=== PATIENT | male | born 1970 | race Caucasian/White ===

== ENCOUNTER 2019-04-10 22:29 | Inpatient (IN) | payer OTHER ==
[~2019-04-10 22:29] MED LIST: ROCURONIUM BROMIDE INJ 50 MG/5 ML VIAL IV ONE
[2019-04-10] MEDS ORDERED: NALOXONE HCL INJ 2 MG/2 ML DISP.SYRIN ONE (22:33)
[2019-04-10] MEDS ORDERED: NALOXONE HCL INJ 2 MG/2 ML DISP.SYRIN IV ONE (22:38)
[2019-04-10] MEDS ORDERED: NORMAL SALINE 1000 ML 1,000 ML IV ONE (22:38)
[2019-04-10] MEDS ORDERED: AMMONIA INHALANTS 10 AMPUL/BOX IH ONE (22:39)
[2019-04-10 22:45] LABS: ABSOLUTE BASOPHILS # (AUTO) 0.1 10^3/uL (0.0-0.2); ABSOLUTE EOSINOPHILS # (AUTO) 0.6 10^3/uL (0.0-0.6); ABSOLUTE LYMPHOCYTES (AUTO) 3.1 10^3/uL (0.5-4.7); ABSOLUTE MONOCYTES (AUTO) 0.8 10^3/uL (0.1-1.4); ABSOLUTE NEUT (AUTO) 6.7 10^3/uL (1.7-8.2); BASOPHILS % (AUTO) 1.3 % (0-2); HEMATOCRIT 42.4 % (37.9-51.0); HEMOGLOBIN 14.4 g/dL (13.5-17.0); LYMPHOCYTES % (AUTO) 27.2 % (13-45); MEAN CORPUSCULAR HGB CONC 33.9 g/dL (32.0-36.0); MEAN CORPUSCULAR VOLUME 92 fl (80-97); MONOCYTES % (AUTO) 7.3 % (3-13); PLATELET COUNT 316 10^3/uL (150-450); RED BLOOD COUNT 4.63 10^6/uL (4.35-5.55); RED CELL DISTRIBUTION WIDTH 12.7 % (11.5-14.0); SEGMENTED NEUTROPHILS % (AUTO) 59.2 % (42-78); TOTAL CELLS COUNTED % (AUTO) 100 %; WHITE BLOOD COUNT 11.3 10^3/uL (4.0-10.5)
[2019-04-10 23:07] LABS: ALANINE AMINOTRANSFERASE 34 U/L (21-72); ALKALINE PHOSPHATASE 66 U/L (38-126); ANION GAP 15 (5-19); ASPARTATE AMINO TRANSFERASE 36 U/L (17-59); BILIRUBIN,DIRECT 0.3 mg/dL (0.0-0.4); BILIRUBIN,TOTAL 0.6 mg/dL (0.2-1.3); BLOOD UREA NITROGEN 21 mg/dL (7-20); CALCIUM 10.1 mg/dL (8.4-10.2); CARBON DIOXIDE 24 mmol/L (22-30); CHLORIDE 103 mmol/L (98-107); GLUCOSE 123 mg/dL (75-110); POTASSIUM 4.2 mmol/L (3.6-5.0); SODIUM 141.9 mmol/L (137-145); TOTAL PROTEIN 8.2 g/dL (6.3-8.2)
[2019-04-10 23:10] LABS: ACETAMINOPHEN < 10 ug/mL (10-30); ALCOHOL < 10 mg/dL (NONE DETECTED); SALICYLATE < 1.0 mg/dL (2.0-20.0)
[2019-04-10] MEDS ORDERED: PROPOFOL 1,000 MG/100 ML INFUS..BTL IV PRN (23:12)
[2019-04-10] MEDS: PROPOFOL 1,000 MG/100 ML INFUS..BTL IV PRN (23:13)
[2019-04-10] MEDS ORDERED: PROPOFOL 1,000 MG/100 ML INFUS..BTL IV ONE (23:14)
--- NOTE | 2019-04-10 23:17 | ER Document Report ---
ED General - General Chief Complaint: Unresponsive Stated Complaint: UNRESPONSIVE Time Seen by Provider: 04/10/19 22:38 TRAVEL OUTSIDE OF THE [place] IN LAST 30 DAYS: No - HPI Notes: Patient is a 48-year-old male that presents to the emergency department for chief complaint of unresponsive. EMS was called by a bystander. Patient was reportedly in this bystanders home and was found unresponsive. There was syringes and heroin found on scene. EMS is not sure if patient had consumed any other narcotics or alcohol. EMS administered 2 mg intranasal and 2 mg IV Narcan. they state when they found the patient he was unresponsive with agonal breathing and did have some improvement of respirations after receiving Narcan. HPI is limited given patient's unresponsive state. Past Medical History: Hypertension, depression Past Surgical History: Unknown Social History: Reported heroin use Family History: Reviewed and noncontributory for presenting illness Allergies: Reviewed, see documented allergy list. REVIEW OF SYSTEMS: Unable to obtain because of acuity of condition and unresponsive state PHYSICAL EXAMINATION: Vital signs reviewed, nursing noted reviewed. GENERAL: Unresponsive, warm, groaning HEAD: Atraumatic, normocephalic. EYES: Pinpoint pupils, PERRLA, sclera anicteric, conjunctiva are normal. ENT: nares patent, oropharynx clear without exudates. Moist mucous membranes. NECK: supple without lymphadenopathy LUNGS: Breath sounds diminished to auscultation bilaterally and equal. slow shallow respirations HEART: Tachycardic rate and regular rhythm without murmurs ABDOMEN: Soft, No rebound, guarding, or rigidity. No masses appreciated. EXTREMITIES: No long bone deformity, no pitting or edema. NEUROLOGICAL: GCS 7. Groaning, moves all extremities to painful stimuli but does not localize to pain, eyes remain closed SKIN: Warm, Dry, normal turgor, ecchymosis to medial left arm - Related Data Allergies/Adverse Reactions: No Known Allergies Allergy (Unverified 04/11/19 00:19) Past Medical History - Social History Smoking Status: Unknown if Ever Smoked Family History: Reviewed & Not Pertinent Physical Exam - Vital signs Vitals: Pulse Ox 96 04/10/19 22:30 Course - Re-evaluation Re-evalutation: 04/10/19 23:22 Vitals reviewed. Nursing notes reviewed. Patient presented by EMS with a GCS of 7. He had received 2 mg intranasal Narcan and 2 mg IV Narcan by EMS prior to arrival. Administered another 2 mg IV Narcan with no change in mentation, a second dose of 2 mg IV Narcan was then administered again with no change in mentation. Patient has now received a total of 8 mg of IV Narcan and is still unresponsive. He is not currently protecting his airway. Patient was intubated for airway protection. He is moving all extremities to painful stimuli with no localization of pain prior to intubation. 04/11/19 00:18 Patient sister is now at bedside. She states that patient has a history of heroin abuse in the past. She also states that he told her over the weekend t hat he was having suicidal thoughts and for $200 he could "end it all". She states he has required inpatient admission for substance abuse as well as suicidal thoughts in the past. She is concerned that he had a months worth of Valium prescribed to him on Wednesday. She is not sure if he took this medication and believes the police that were on the scene may have confiscated the pill bottle. She also reports he has a history of hypertension but is not sure what his blood pressure medication is and he takes Paxil for depression. Patient has been hypertensive since presentation. His blood pressure temporarily improved after intubation and propofol but has continued to increase. He was given a dose of IV hydralazine with minimal improvement. Patient will be placed on Cardene infusion for further blood pressure control. CT brain shows no intracranial hemorrhage. Chest x-ray shows no acute process and appropriately placed ET tube. urine tox is pending currently. Laboratory 04/10/19 04/10/19 22:40 22:40 WBC 11.3 H RBC 4.63 Hgb 14.4 Hct 42.4 MCV 92 MCH 31.0 MCHC 33.9 RDW 12.7 Plt Count 316 Seg Neutrophils % 59.2 Lymphocytes % 27.2 Monocytes % 7.3 Eosinophils % 5.0 Basophils % 1.3 Absolute Neutrophils 6.7 Absolute Lymphocytes 3.1 Absolute Monocytes 0.8 Absolute Eosinophils 0.6 Absolute Basophils 0.1 Sodium 141.9 Potassium 4.2 Chloride 103 Carbon Dioxide 24 Anion Gap 15 BUN 21 H Creatinine 0.85 Est GFR ( Amer) > 60 Est GFR (Non-Af Amer) > 60 Glucose 123 H Calcium 10.1 Total Bilirubin 0.6 Direct Bilirubin 0.3 Neonat Total Bilirubin Not Reportable Neonat Direct Bilirubin Not Reportable Neonat Indirect Bili Not Reportable AST 36 ALT 34 Alkaline Phosphatase 66 Total Protein 8.2 Albumin 5.0 Salicylates < 1.0 L Acetaminophen < 10 L Serum Alcohol < [address] 04/10/19 22:39 IMPRESSION: No acute intracranial findings. Chest X-Ray 04/10/19 23:15 IMPRESSION: No acute cardiopulmonary findings. 04/11/19 00:44 Patient reevaluated. He is agitated on the vent and coughing. He is not opening his eyes or following commands. He is moving all extremities spontaneously. Patient is still encephalopathic and sedation will be increased for patient comfort while on the vent. 04/11/19 01:59 Cardene was ordered for blood pressure management since his blood pressure did not initially improve after hydralazine however after patient was started on Versed drip and propofol was increased to the point where he was comfortably sedate his blood pressure improved on its own. Urine tox is positive for benzodiazepines and methamphetamine. Patient will be admitted to the ICU for further medical management. Care discussed with Dr. Vora who accepted admission. - Vital Signs Vital signs: Temp Pulse Resp BP Pulse Ox 16 184/123 H 98 04/10/19 23:10 04/10/19 23:10 04/10/19 23:10 - Laboratory Result Diagrams: 04/10/19 22:40 04/10/19 22:40 Laboratory results interpreted by me: 04/10/19 04/10/19 04/11/19 22:40 22:40 00:07 WBC 11.3 H BUN 21 H Glucose 123 H Urine Protein 30 H Urine Ketones TRACE H Urine Ascorbic Acid 40 H Salicylates < 1.0 L Acetaminophen < 10 L - EKG Interpretation by Me Additional EKG results interpreted by me: 04/10/19 23:23 Interpreted by myself [id number]: Normal sinus rhythm, rate 77, normal axis, no ectopy, no STEMI Procedures - Intubation Orotracheal Time of Intubation: 23:21 Airway evaluation: Normal anatomy Mallampati Classification: Class 1 Medications: Etomidate, Other - Rocuronium Intubation method: Orotracheal Equipment used: Glidescope ETT size: 7.5 ETT secured at: Gums ETT secured at (cm): 23 Breath Sounds after Intubation: Equal End tidal CO2 confirmed: Yes Post Intubation Xray: Yes Intubation Complications: No complications Critical Care Note - Critical Care Note Total time excluding time spent on procedures (mins): 50 Comments: Critical care time 50 exclusive from separate billable procedures for a patient requiring complex medical decision making, and high potential for clinical deterioration. Time spent obtaining history from patient or surrogate, discussions with consultants, development of treatment plan with patient or surrogate, evaluation of patient's response to treatment, examination of patient, ordering and performing treatments and interventions, ordering and review of laboratory studies, re-evaluation of patient's condition, ordering and review of radiographic studies and review of old charts Discharge - Discharge Clinical Impression: Unresponsive state, Hypertensive emergency Drug overdose Qualifiers: Encounter type: initial encounter Injury intent: undetermined intent Qualified Code(s): T50.904A - Poisoning by unspecified drugs, medicaments and biological substances, undetermined, initial encounter Condition: Fair Disposition: ADMITTED INPATIENT Admitting Provider: Diony (Hospitalist) Unit Admitted: ICU
--- NOTE | 2019-04-10 23:44 | RADIOLOGY REPORT (SQ) ---
EXAM DESCRIPTION: XR CHEST 1 VIEW COMPLETED DATE/TME: 04/10/2019 23:15 CLINICAL HISTORY: 48 years Male, ETT placement COMPARISON: None. NUMBER OF VIEWS/TECHNIQUE: 1/AP FINDINGS: Adequate lung volume, clear parenchyma, normal cardiac silhouette, and intact bony thorax. Adequate appearing endotracheal tube. Adequate appearing enteric tube. IMPRESSION: No acute cardiopulmonary findings.
[2019-04-11] MEDS ORDERED: HYDRALAZINE HCL INJ/PF 20 MG/1 ML SDV IV ONE (00:02)
[2019-04-11] MEDS ORDERED: NICARDIPINE HCL RTU, ISO-OS 20 MG/200 ML RTUINJ IV PRN (00:11)
--- NOTE | 2019-04-11 00:11 | RADIOLOGY REPORT (SQ) ---
CLINICAL HISTORY: mental status change COMPARISON: None. TECHNIQUE: CT HEAD WITHOUT IV CONTRAST on 04/10/2019 10:39 PM CDT This exam was performed according to our departmental dose-optimization program, which includes automated exposure control, adjustment of the mA and/or kV according to patient size and/or use of iterative reconstruction technique. FINDINGS: There is no acute hemorrhage, mass effect or midline shift. Hightower-white differentiation is preserved. There is no hydrocephalus. There is no significant volume loss for age. The calvarium is intact. Orbits and globes are unremarkable. There is partial opacification of the ethmoid air cells. There is a tiny mucous retention cyst in the left maxillary sinus. There is minimal right maxillary sinus thickening. Mastoid air cells are clear. IMPRESSION: No acute intracranial findings.
[2019-04-11] MEDS ORDERED: MIDAZOLAM HCL 50 MG/100 ML RTUINJ ONE ×2 (00:43→12:41)
[2019-04-11 00:49] LABS: APPEARANCE,URINE SLIGHTLY-CLOUDY; BILIRUBIN,URINE NEGATIVE (NEGATIVE); COLOR,URINE YELLOW; GLUCOSE, URINE NEGATIVE (NEGATIVE); KETONES,URINE TRACE mg/dL (NEGATIVE); LEUKOCYTE ESTERASE,URINE NEGATIVE (NEGATIVE); NITRITE,URINE NEGATIVE (NEGATIVE); PROTEIN,URINE 30 mg/dL (NEGATIVE); URINE SPECIFIC GRAVITY 1.021; UROBILINOGEN,URINE NEGATIVE mg/dL (<2.0)
[2019-04-11] MEDS: MIDAZOLAM HCL 50 MG/100 ML RTUINJ IV PRN ×8 (00:56→21:02)
[2019-04-11 01:05] LABS: URINE BARBITURATES SCREEN NEGATIVE; URINE COCAINE SCREEN NEGATIVE; URINE MARIJUANA (THC) SCREEN NEGATIVE; URINE METHADONE SCREEN NEGATIVE; URINE PHENCYCLIDINE SCREEN NEGATIVE
[2019-04-11 01:45] LABS: URINE BENZODIAZEPINES SCREEN UNCONFIRMED POSITIVE
[2019-04-11] MEDS: PROPOFOL 1,000 MG/100 ML INFUS..BTL IV PRN ×8 (02:15→22:23)
[2019-04-11] MEDS ORDERED: PROPOFOL INJ 200 MG/20 ML VIAL IV ONE (02:15)
[2019-04-11] MEDS ORDERED: ETOMIDATE INJ/PF 20 MG/10 ML SDV IV ONE ×2 (02:15→09:27)
[2019-04-11] MEDS ORDERED: ROCURONIUM BROMIDE INJ 50 MG/5 ML VIAL IV ONE (02:15)
[2019-04-11] MEDS ORDERED: DEXTROSE 50%-WATER 25 GM/50 ML DISP.SYRIN IV PRN ×2 (05:56)
[2019-04-11] MEDS ORDERED: DEXTROSE 40% GEL 15 GM TUBE PO PRN ×2 (05:56)
[2019-04-11] MEDS ORDERED: ONDANSETRON HCL INJ/PF 4 MG/2 ML SDV IV PRN (05:56)
[2019-04-11] MEDS ORDERED: GLUCAGON,HUMAN RECOMB 1 MG INJ SUBCUT PRN (05:56)
[2019-04-11] MEDS: RINGERS SOLUTION,LACTATED 1,000 ML IV PRN ×5 (06:22→22:36)
[2019-04-11] MEDS: HEPARIN SOD (PORCINE) 5,000 UNIT/ML 1 ML SYRINGE SUBCUT SCH ×3 (06:22→21:03)
--- NOTE | 2019-04-11 06:23 | PDOC H&P ---
History of Present Illness Admission Date/PCP: 04/11/19 02:07 BLAINE HOWARD MD Patient complains of: Found down unresponsive History of Present Illness: BRENDA GARCIA is a 48 year old male who presented to the emergency room via EMS having been found down at an unrelated bystanders home. At the time he was found by EMS he was unresponsive and there observation at the scene was that h eroin and syringes were present. A family member told the emergency room physician that the patient had recently commented "that for $200 he could get all of the heroin he needed to kill himself". Patient was given intranasal and intravenous Narcan with some improvement of his respiratory status however his unresponsiveness persisted. Patient was transported to the emergency room where he was found to be unresponsive and required intubation and ventilation. He was noted to have a positive urine drug screen for benzodiazepines and amphetamines. Patient was subsequently admitted to the intensive care unit for further evaluation and treatment. Past Medical History Past Medical History: Past medical history, past surgical history, social history, current medication/allergy status and family history cannot be obtained due to the patient's obtunded status and current endotracheal tube placement with mechanical ventilation. No medical records or other history sources are available. Past Surgical History Past Surgical History: Past medical history, past surgical history, social history, current medicati on/allergy status and family history cannot be obtained due to the patient's obtunded status and current endotracheal tube placement with mechanical ventilation. No medical records or other history sources are available. Social History Smoking Status: Unknown if Ever Smoked Past Social History Note: Past medical history, past surgical history, social history, current medication/allergy status and family history cannot be obtained due to the patient's obtunded status and current endotracheal tube placement with mechanical ventilation. No medical records or other history sources are available. - Advance Directive Resuscitation Status: Full Code Surrogate healthcare decision maker:: UA Family History Family History: Past medical history, past surgical history, social history, current medication/allergy status and family history cannot be obtained due to the patient's obtunded status and current endotracheal tube placement with mechanical ventilation. No medical records or other history sources are available. Parental Family History Reviewed: No Children Family History Reviewed: No Sibling(s) Family History Reviewed.: No Medication/Allergy Allergies/Adverse Reactions: No Known Allergies Allergy (Unverified 06/04/19 00:19) Review of Systems ROS unobtainable: Due to endotracheal tube, Due to mental status Physical Exam Vital Signs: Temp Pulse Resp BP Pulse Ox 14 138/99 H 98 04/11/19 02:20 04/11/19 02:20 04/11/19 02:20 Intake & Output 04/09/19 04/10/19 04/11/19 23:59 23:59 23:59 Intake Total 1 1083 Balance 1 1083 Weight 82.3 kg General appearance: PRESENT: no acute distress, other - Endotracheally intubated with mechanical ventilation at the time of my evaluation Head exam: PRESENT: atraumatic, normocephalic Eye exam: ABSENT: conjunctival injection, scleral icterus Ear exam: PRESENT: normal external ear exam. ABSENT: bleeding, drainage Mouth exam: PRESENT: dry mucosa, neck supple, tongue midline Neck exam: ABSENT: JVD, thyromegaly, tracheal deviation Respiratory exam: PRESENT: clear to auscultation annie, symmetrical, other - Endotracheally intubated with mechanical ventilation Cardiovascular exam: PRESENT: RRR. ABSENT: clicks, gallop, rubs Pulses: PRESENT: normal radial pulses, normal dorsalis pedis pul Vascular exam: PRESENT: normal capillary refill. ABSENT: pallor GI/Abdominal exam: PRESENT: normal bowel sounds, soft Rectal exam: PRESENT: deferred Extremities exam: ABSENT: joint swelling, pedal edema Musculoskeletal exam: ABSENT: deformity, dislocation Neurological exam: PRESENT: altered - Sedated for mechanical ventilation pre cluding further meaningful evaluation Psychiatric exam: PRESENT: other - Sedated for ventilation precluding a meaningful evaluation Skin exam: PRESENT: dry, intact, warm. ABSENT: jaundice, rash, urticaria Results Laboratory Results: 04/10/19 22:40 04/10/19 22:40 04/10/19 04/10/19 04/11/19 22:40 22:40 00:07 WBC 11.3 H RBC 4.63 Hgb 14.4 Hct 42.4 MCV 92 MCH 31.0 MCHC 33.9 RDW 12.7 Plt Count 316 Seg Neutrophils % 59.2 Lymphocytes % 27.2 Monocytes % 7.3 Eosinophils % 5.0 Basophils % 1.3 Absolute Neutrophils 6.7 Absolute Lymphocytes 3.1 Absolute Monocytes 0.8 Absolute Eosinophils 0.6 Absolute Basophils 0.1 Sodium 141.9 Potassium 4.2 Chloride 103 Carbon Dioxide 24 Anion Gap 15 BUN 21 H Creatinine 0.85 Est GFR ( Amer) > 60 Est GFR (Non-Af Amer) > 60 Glucose 123 H Calcium 10.1 Total Bilirubin 0.6 AST 36 ALT 34 Alkaline Phosphatase 66 Total Protein 8.2 Albumin 5.0 Urine Color YELLOW Urine Appearance SLIGHTLY-CLOUDY Urine pH 5.0 Ur Specific [place] 1.021 Urine Protein 30 H Urine Glucose (UA) NEGATIVE Urine Ketones TRACE H Urine Blood NEGATIVE Urine Nitrite NEGATIVE Ur Leukocyte Esterase NEGATIVE Urine WBC (Auto) 2 Urine RBC (Auto) 2 Impressions: Head CT 04/10/19 22:39 IMPRESSION: No acute intracranial findings. Chest X-Ray 04/10/19 23:15 IMPRESSION: No acute cardiopulmonary findings. Assessment and Plan - Diagnosis (1) Unresponsive state Is this a current diagnosis for this admission?: Yes Plan: Patient will be admitted to the ICU and will receive mechanical ventilation through endotracheal intubation until he becomes responsive enough to be extubated. (2) Drug overdose Qualifiers: Encounter type: initial encounter Injury intent: undetermined intent Qu alified Code(s): T50.904A - Poisoning by unspecified drugs, medicaments and biological substances, undetermined, initial encounter Is this a current diagnosis for this admission?: Yes Plan: Patient be admitted to the ICU and will be treated with IV fluid and other supportive cares. His airway and respiration will be maintained utilizing mechanical ventilation and endotracheal intubation until such time as he is able to be extubated. (3) Hypertensive emergency Is this a current diagnosis for this admission?: Yes Plan: Patient's blood pressure be monitored closely throughout his hospital stay. His hypertension will be treated with intravenous medication utilizing hydralazine 20 mg IV every 4 hours as needed systolic blood pressure greater than 160 or d iastolic blood pressure greater than 100. This will be continued until patient is able to take oral medications or his hypertension resolves. (4) Suicidal ideation Is this a current diagnosis for this admission?: Yes Plan: Patient evidently spoke to a family member indicating that he could buy enough heroin to kill himself or $200. Is uncertain but this was his intent or exactly what his statement meant but he will need a psychiatric evaluation prior to his discharge. - Time Time Spent with patient: Less than 15 minutes - Inpatient Certification Based on my medical assessment, after consideration of the patient's comorbidities, presenting symptoms, or acuity I expect that the services needed warrant INPATIENT care.: Yes I certify that my determination is in accordance with my understanding of Medicare's requirements for reasonable and necessary INPATIENT services [42 CFR 412.3e].: Yes Medical Necessity: Need Close Monitoring Due to Risk of Patient Decompensation, Need For Continuous Telemetry Monitoring, Risk of Complication if Not Cared For in Hospital
[2019-04-11 07:07] LABS: ARTERIAL BLOOD BASE EXCESS 1.1 mmol/L; ARTERIAL BLOOD H2CO3 1.44 mmol/L (1.05-1.35); ARTERIAL BLOOD HCO3 27.1 mmol/L (20-24); ARTERIAL BLOOD O2 SATURATION 99.3 % (94-98); ARTERIAL BLOOD PH 7.37 (7.35-7.45); ARTERIAL BLOOD TOTAL CO2 28.5 mmol/L (23-27)
--- NOTE | 2019-04-11 07:07 | PSYCHOLOGICAL NOTE ---
Psych Note - Psych Note Date seen by psych provider: 04/11/19 Psych Note: Reason for Consult: Overdose BRENDA GARCIA is a 48 year old male who presented to the emergency room via EMS having been found down at an unrelated bystanders home. Patient is currently intubated. Please contact the Behavioral Health Team when extubated and patient is able to engage in evaluation.
[2019-04-11 07:08] LABS: ARTERIAL BLOOD FIO2 40%
[2019-04-11 07:14] LABS: CREATINE KINASE MB 2.47 ng/mL (<4.55)
[2019-04-11 07:16] LABS: TROPONIN I < 0.012 ng/mL
[2019-04-11] MEDS: PANTOPRAZOLE SODIUM 40 MG VIAL IV SCH ×2 (09:59→21:02)
[2019-04-11 12:35] LABS: CREATINE KINASE MB 1.86 ng/mL (<4.55)
[2019-04-11 12:40] LABS: TROPONIN I < 0.012 ng/mL
[2019-04-11] MEDS ORDERED: PROPOFOL 1,000 MG/100 ML INFUS..BTL IV ONE (12:40)
--- NOTE | 2019-04-11 13:56 | EKG REPORT ---
SEVERITY:- NORMAL ECG - SINUS RHYTHM : Confirmed by: Jan Collins MD 11-Apr-2019 13:55:48
[2019-04-11 18:42] LABS: CREATINE KINASE MB 1.37 ng/mL (<4.55)
[2019-04-11 18:46] LABS: TROPONIN I < 0.012 ng/mL
[2019-04-11] MEDS: FENTANYL CITRATE INJ/PF 100 MCG/2 ML AMPUL IV PRN (21:03)
[2019-04-12] MEDS: MIDAZOLAM HCL 50 MG/100 ML RTUINJ IV PRN ×7 (00:13→19:35)
[2019-04-12] MEDS: PROPOFOL 1,000 MG/100 ML INFUS..BTL IV PRN ×7 (01:43→23:16)
[2019-04-12] MEDS: FENTANYL CITRATE INJ/PF 100 MCG/2 ML AMPUL IV PRN ×4 (01:44→19:35)
[2019-04-12] MEDS: RINGERS SOLUTION,LACTATED 1,000 ML IV PRN ×2 (02:52→07:06)
[2019-04-12 03:50] LABS: ARTERIAL BLOOD BASE EXCESS -1.1 mmol/L; ARTERIAL BLOOD H2CO3 1.34 mmol/L (1.05-1.35); ARTERIAL BLOOD HCO3 24.5 mmol/L (20-24); ARTERIAL BLOOD O2 SATURATION 98.2 % (94-98); ARTERIAL BLOOD PCO2 44.5 mmHg (35-45); ARTERIAL BLOOD PH 7.36 (7.35-7.45); ARTERIAL BLOOD PO2 119.7 mmHg (80-100); ARTERIAL BLOOD TOTAL CO2 25.8 mmol/L (23-27)
[2019-04-12 03:58] LABS: ARTERIAL BLOOD FIO2 35%
[2019-04-12 04:43] LABS: ABSOLUTE BASOPHILS # (AUTO) 0.1 10^3/uL (0.0-0.2); ABSOLUTE EOSINOPHILS # (AUTO) 0.6 10^3/uL (0.0-0.6); ABSOLUTE LYMPHOCYTES (AUTO) 2.2 10^3/uL (0.5-4.7); ABSOLUTE MONOCYTES (AUTO) 0.8 10^3/uL (0.1-1.4); ABSOLUTE NEUT (AUTO) 7.1 10^3/uL (1.7-8.2); BASOPHILS % (AUTO) 0.9 % (0-2); EOSINOPHILS % (AUTO) 5.1 % (0-6); HEMATOCRIT 34.1 % (37.9-51.0); LYMPHOCYTES % (AUTO) 20.2 % (13-45); MEAN CORPUSCULAR HEMOGLOBIN 31.2 pg (27.0-33.4); MEAN CORPUSCULAR HGB CONC 33.7 g/dL (32.0-36.0); MEAN CORPUSCULAR VOLUME 93 fl (80-97); MONOCYTES % (AUTO) 7.7 % (3-13); PLATELET COUNT 244 10^3/uL (150-450); RED BLOOD COUNT 3.68 10^6/uL (4.35-5.55); RED CELL DISTRIBUTION WIDTH 12.8 % (11.5-14.0); SEGMENTED NEUTROPHILS % (AUTO) 66.1 % (42-78); TOTAL CELLS COUNTED % (AUTO) 100 %; WHITE BLOOD COUNT 10.8 10^3/uL (4.0-10.5)
[2019-04-12 04:46] LABS: ALANINE AMINOTRANSFERASE 34 U/L (21-72); ALKALINE PHOSPHATASE 55 U/L (38-126); ANION GAP 6 (5-19); ASPARTATE AMINO TRANSFERASE 21 U/L (17-59); BILIRUBIN,DIRECT 0.2 mg/dL (0.0-0.4); BILIRUBIN,TOTAL 0.2 mg/dL (0.2-1.3); BLOOD UREA NITROGEN 14 mg/dL (7-20); CALCIUM 8.7 mg/dL (8.4-10.2); CARBON DIOXIDE 28 mmol/L (22-30); CHLORIDE 108 mmol/L (98-107); GLUCOSE 81 mg/dL (75-110); HEMOGLOBIN 11.5 g/dL (13.5-17.0); SODIUM 141.5 mmol/L (137-145); TOTAL PROTEIN 5.2 g/dL (6.3-8.2)
[2019-04-12] MEDS: HEPARIN SOD (PORCINE) 5,000 UNIT/ML 1 ML SYRINGE SUBCUT SCH ×3 (04:59→21:08)
[2019-04-12 05:00] LABS: FREE T3 4.82 pg/mL (2.77-5.27); FREE T4 (FREE THYROXINE) 0.88 ng/dL (0.78-2.19)
[2019-04-12 05:14] LABS: THYROID STIMULATING HORMONE 0.86 uIU/mL (0.47-4.68)
--- NOTE | 2019-04-12 08:24 | RADIOLOGY REPORT (SQ) ---
EXAM DESCRIPTION: CHEST SINGLE VIEW COMPLETED DATE/TIME: 04/12/2019 7:09 am REASON FOR STUDY: resp failure COMPARISON: 04/10/2019 EXAM PARAMETERS: NUMBER OF VIEWS: One view. TECHNIQUE: Single frontal radiographic view of the chest acquired. RADIATION DOSE: NA LIMITATIONS: None. FINDINGS: LUNGS AND PLEURA: No opacities, masses or pneumothorax. No pleural effusion. MEDIASTINUM AND HILAR STRUCTURES: No masses. Contour normal. HEART AND VASCULAR STRUCTURES: Heart normal in size. Normal vasculature. BONES: No acute findings. HARDWARE: Endotracheal tube tip overlies midthoracic trachea, stable. Enteric tube tip overlies padmini patricia body and advanced from prior. OTHER: No other significant finding. IMPRESSION: No new cardiopulmonary complication. Advancement of the enteric tube with tip overlying gastric body. TECHNICAL DOCUMENTATION: JOB ID: [id number] [employer]- All Rights Reserved Reading location - IP/workstation name: HE
[2019-04-12] MEDS: PANTOPRAZOLE SODIUM 40 MG VIAL IV SCH ×2 (10:45→21:08)
[2019-04-12] MEDS: NORMAL SALINE 1000 ML 1,000 ML IV PRN ×2 (10:46→18:06)
--- NOTE | 2019-04-12 17:04 | PDOC PROGRESS REPORT ---
Subjective Progress Note for:: 04/12/19 Subjective:: This is a 48 year old male who presented to the emergency room via EMS having been found unresponsive with heroin and syringes were present on the scene. He was subsequently intubated. He was noted to have a positive urine drug screen for benzodiazepines and amphetamines. No acute event overnight. He remains intubated and sedated. Per RN, patient had significantly thick yellowish secretions coming from the ET. Patient also became very tachycardic when attempted to be weaned off sedation. Reason For Visit: ACUTE MULTIPLE DRUG OVERDOSE Physical Exam Vital Signs: Temp Pulse Resp BP Pulse Ox 99.5 F 96 12 113/82 97 04/12/19 14:00 04/12/19 14:00 04/12/19 14:00 04/12/19 14:00 04/12/19 14:00 Intake & Output 04/11/19 04/12/19 04/13/19 06:59 06:59 06:59 Intake Total 1177 7507 1258 Output Total 1350 800 Balance 1177 6157 458 Weight 181 lb 7.047 oz 188 lb 7.924 oz General appearance: PRESENT: other - Intubated, sedated Eye exam: PRESENT: conjunctiva pink, EOMI, PERRLA. ABSENT: scleral icterus Ear exam: PRESENT: normal external ear exam Neck exam: ABSENT: carotid bruit, JVD, lymphadenopathy, thyromegaly Respiratory exam: PRESENT: rhonchi. ABSENT: rales, wheezes Cardiovascular exam: PRESENT: RRR. ABSENT: diastolic murmur, rubs, systolic murmur Pulses: PRESENT: normal dorsalis pedis pul GI/Abdominal exam: PRESENT: normal bowel sounds, soft. ABSENT: distended, guarding, mass, organolmegaly, rebound, tenderness Rectal exam: PRESENT: deferred Extremities exam: PRESENT: full ROM. ABSENT: calf tenderness, clubbing, pedal edema Neurological exam: PRESENT: other - Debated, sedated Results Laboratory Results: 04/12/19 04:06 04/12/19 04:06 04/12/19 04/12/19 04/12/19 03:42 04:06 04:06 WBC 10.8 H RBC 3.68 L Hgb 11.5 L D Hct 34.1 L MCV 93 MCH 31.2 MCHC 33.7 RDW 12.8 Plt Count 244 Seg Neutrophils % 66.1 Lymphocytes % 20.2 Monocytes % 7.7 Eosinophils % 5.1 Basophils % 0.9 Absolute Neutrophils 7.1 Absolute Lymphocytes 2.2 Absolute Monocytes 0.8 Absolute Eosinophils 0.6 Absolute Basophils 0.1 Carbonic Acid 1.34 HCO3/H2CO3 Ratio 18:1 ABG pH 7.36 ABG pCO2 44.5 ABG pO2 119.7 H ABG HCO3 24.5 H ABG O2 Saturation 98.2 H ABG Base Excess -1.1 FiO2 35% Sodium Potassium Chloride Carbon Dioxide Anion Gap BUN Creatinine Est GFR ( Amer) Est GFR (Non-Af Amer) Glucose Calcium Magnesium Total Bilirubin AST ALT Alkaline Phosphatase Total Protein Albumin TSH 0.86 Free T4 0.88 Free T3 pg/mL 4.82 04/12/19 04:06 WBC RBC Hgb Hct MCV MCH MCHC RDW Plt Count Seg Neutrophils % Lymphocytes % Monocytes % Eosinophils % Basophils % Absolute Neutrophils Absolute Lymphocytes Absolute Monocytes Absolute Eosinophils Absolute Basophils Carbonic Acid HCO3/H2CO3 Ratio ABG pH ABG pCO2 ABG pO2 ABG HCO3 ABG O2 Saturation ABG Base Excess FiO2 Sodium 141.5 Potassium 4.0 Chloride 108 H Carbon Dioxide 28 Anion Gap 6 BUN 14 Creatinine 0.85 Est GFR ( Amer) > 60 Est GFR (Non-Af Amer) > 60 Glucose 81 Calcium 8.7 Magnesium 1.9 Total Bilirubin 0.2 AST 21 ALT 34 Alkaline Phosphatase 55 Total Protein 5.2 L Albumin 3.0 L TSH Free T4 Free T3 pg/mL 04/11/19 04/11/19 04/11/19 06:33 06:33 11:56 Creatine Kinase 187 H 146 CK-MB (CK-2) 2.47 Troponin I < 0.012 04/11/19 04/11/19 04/11/19 11:56 17:43 17:43 Creatine Kinase 116 CK-MB (CK-2) 1.86 1.37 Troponin I < 0.012 < 0.012 Impressions: Head CT 04/10/19 22:39 IMPRESSION: No acute intracranial findings. Chest X-Ray 04/12/19 06:00 IMPRESSION: No new cardiopulmonary complication. Advancement of the enteric tube with tip overlying gastric body. Assessment and Plan - Diagnosis (1) Acute respiratory failure with hypoxia Is this a current diagnosis for this admission?: Yes Plan: Currently intubated and sedated. Patient became very tachycardic and slightly tachypneic when weaning off sedation was attempted. (2) Toxic encephalopathy Is this a current diagnosis for this admission?: Yes Plan: Secondary to abuse. UDS was the positive for amphetamines. There was reported heroine and syringes as close to patient when he was found unresponsive. (3) Suicidal ideation Is this a current diagnosis for this admission?: Yes Plan: He will be reevaluated by psych when he gets extubated. Family did say that he had suicidal ideations at home. He may need possible inpatient psych placement. (4) Polysubstance abuse Is this a current diagnosis for this admission?: Yes Plan: As mentioned above. - Time Time Spent with patient: 25-34 minutes
[2019-04-13] MEDS: FENTANYL CITRATE INJ/PF 100 MCG/2 ML AMPUL IV PRN ×4 (00:09→19:42)
[2019-04-13] MEDS: MIDAZOLAM HCL 50 MG/100 ML RTUINJ IV PRN ×6 (01:14→23:27)
[2019-04-13] MEDS: NORMAL SALINE 1000 ML 1,000 ML IV PRN (01:28)
[2019-04-13] MEDS: PROPOFOL 1,000 MG/100 ML INFUS..BTL IV PRN ×7 (02:05→22:40)
[2019-04-13 03:24] LABS: ARTERIAL BLOOD BASE EXCESS -1.2 mmol/L; ARTERIAL BLOOD H2CO3 1.24 mmol/L (1.05-1.35); ARTERIAL BLOOD HCO3 23.8 mmol/L (20-24); ARTERIAL BLOOD O2 SATURATION 93.2 % (94-98); ARTERIAL BLOOD PCO2 41.1 mmHg (35-45); ARTERIAL BLOOD PH 7.38 (7.35-7.45); ARTERIAL BLOOD PO2 67.5 mmHg (80-100); ARTERIAL BLOOD TOTAL CO2 25.1 mmol/L (23-27)
[2019-04-13 03:28] LABS: ARTERIAL BLOOD FIO2 21%
[2019-04-13 03:54] LABS: ABSOLUTE BASOPHILS # (AUTO) 0.1 10^3/uL (0.0-0.2); ABSOLUTE EOSINOPHILS # (AUTO) 0.3 10^3/uL (0.0-0.6); ABSOLUTE LYMPHOCYTES (AUTO) 2.7 10^3/uL (0.5-4.7); ABSOLUTE MONOCYTES (AUTO) 0.9 10^3/uL (0.1-1.4); ABSOLUTE NEUT (AUTO) 6.9 10^3/uL (1.7-8.2); BASOPHILS % (AUTO) 0.9 % (0-2); EOSINOPHILS % (AUTO) 2.9 % (0-6); HEMATOCRIT 36.1 % (37.9-51.0); HEMOGLOBIN 12.1 g/dL (13.5-17.0); LYMPHOCYTES % (AUTO) 24.3 % (13-45); MEAN CORPUSCULAR HGB CONC 33.5 g/dL (32.0-36.0); MEAN CORPUSCULAR VOLUME 93 fl (80-97); MONOCYTES % (AUTO) 8.6 % (3-13); PLATELET COUNT 240 10^3/uL (150-450); RED BLOOD COUNT 3.91 10^6/uL (4.35-5.55); RED CELL DISTRIBUTION WIDTH 12.6 % (11.5-14.0); SEGMENTED NEUTROPHILS % (AUTO) 63.3 % (42-78); TOTAL CELLS COUNTED % (AUTO) 100 %; WHITE BLOOD COUNT 10.9 10^3/uL (4.0-10.5)
[2019-04-13 04:14] LABS: ALANINE AMINOTRANSFERASE 28 U/L (21-72); ALBUMIN 3.1 g/dL (3.5-5.0); ALKALINE PHOSPHATASE 61 U/L (38-126); ANION GAP 9 (5-19); ASPARTATE AMINO TRANSFERASE 19 U/L (17-59); BILIRUBIN,DIRECT 0.2 mg/dL (0.0-0.4); BILIRUBIN,TOTAL 0.3 mg/dL (0.2-1.3); BLOOD UREA NITROGEN 7 mg/dL (7-20); CALCIUM 8.5 mg/dL (8.4-10.2); CARBON DIOXIDE 27 mmol/L (22-30); CHLORIDE 106 mmol/L (98-107); GLUCOSE 79 mg/dL (75-110); POTASSIUM 3.7 mmol/L (3.6-5.0); TOTAL PROTEIN 5.5 g/dL (6.3-8.2)
[2019-04-13] MEDS: HEPARIN SOD (PORCINE) 5,000 UNIT/ML 1 ML SYRINGE SUBCUT SCH ×3 (05:16→21:13)
--- NOTE | 2019-04-13 07:46 | RADIOLOGY REPORT (SQ) ---
EXAM DESCRIPTION: XR CHEST 1 VIEW COMPLETED DATE/TME: 04/13/2019 06:00 CLINICAL HISTORY: 48 years Male, aspiration resp failure COMPARISON: One day prior. NUMBER OF VIEWS/TECHNIQUE: 1/AP FINDINGS: Small patchy opacity bilateral lower lung gorman. Pulmonary vascular congestion. Adequate appearing endotracheal tube. Adequate appearing enteric tube partially obscured. Normal cardiac silhouette size. No pneumothorax. Stable bony thorax. IMPRESSION: No significant change.
[2019-04-13] MEDS: PANTOPRAZOLE SODIUM 40 MG VIAL IV SCH ×2 (09:42→21:13)
[2019-04-13] MEDS: FUROSEMIDE INJ/PF 40 MG/4 ML SDV IV SCH ×3 (09:42→22:06)
[2019-04-13] MEDS ORDERED: CEFTRIAXONE 1 GM/D5W RTU 1 GM/50 ML RTUPB IV SCH (12:00)
--- NOTE | 2019-04-13 13:35 | RADIOLOGY REPORT (SQ) ---
EXAM DESCRIPTION: CHEST SINGLE VIEW COMPLETED DATE/TIME: 04/13/2019 1:24 pm REASON FOR STUDY: absent breath sounds on right COMPARISON: 04/13/2019. EXAM PARAMETERS: NUMBER OF VIEWS: One view. TECHNIQUE: Single frontal radiographic view of the chest acquired. RADIATION DOSE: NA LIMITATIONS: None. FINDINGS: LUNGS AND PLEURA: Stable elevation of the right hemidiaphragm. Faint basilar densities un changed. No large pleural effusion. No pneumothorax. MEDIASTINUM AND HILAR STRUCTURES: No masses. Contour normal. HEART AND VASCULAR STRUCTURES: Heart normal in size. Normal vasculature. BONES: No acute findings. HARDWARE: Stable endotracheal tube and nasogastric tube. OTHER: No other significant finding. IMPRESSION: NO CHANGE IN APPEARANCE OF THE CHEST. TECHNICAL DOCUMENTATION: JOB ID: [id number] [employer]- All Rights Reserved Reading location - IP/workstation name: HE
[2019-04-13] MEDS: CEFTRIAXONE SODIUM 1,000 MG in DEXTROSE 5%-WATER 50 ML IV SCH (14:05)
[2019-04-13] MEDS ORDERED: FENTANYL CITRATE INJ/PF 100 MCG/2 ML AMPUL IV ONE (15:00)
[2019-04-13] MEDS ORDERED: VANCOMYCIN HCL 0 MG in DEXTROSE 5%-WATER 250 ML IV NR (15:00)
--- NOTE | 2019-04-13 15:12 | PDOC PROGRESS REPORT ---
Subjective Progress Note for:: 04/13/19 Subjective:: This is a 48 year old male who presented to the emergency room via EMS having been found unresponsive with heroin and syringes were present on the scene. He was subsequently intubated. He was noted to have a positive urine drug screen for benzodiazepines and amphetamines. 04/12: Patient is intubated and sedated. Per RN, patient had significantly thick yellowish secretions coming from the ET. Patient also became very tachycardic when attempted to be weaned off sedation. 04/13: No acute event overnight. He remains intubated and sedated. He did develop fever last night and this morning. Minimal secretions on the ET today. However patient did have transient desaturation. Currently saturating at 92-93% on 40% FiO2. Reason For Visit: ACUTE MULTIPLE DRUG OVERDOSE Physical Exam Vital Signs: Temp Pulse Resp BP Pulse Ox 101.1 F H 99 16 143/93 H 93 04/13/19 12:00 04/13/19 12:00 04/13/19 12:00 04/13/19 12:00 04/13/19 14:35 Intake & Output 04/12/19 04/13/19 04/14/19 06:59 06:59 06:59 Intake Total 7507 3766 224 Output Total 1350 2825 1325 Balance 6157 941 -1101 Weight 188 lb 7.924 oz 185 lb 6.54 oz Results Laboratory Results: 04/13/19 03:41 04/13/19 03:41 04/13/19 04/13/19 04/13/19 03:15 03:41 03:41 WBC 10.9 H RBC 3.91 L Hgb 12.1 L Hct 36.1 L MCV 93 MCH 31.0 MCHC 33.5 RDW 12.6 Plt Count 240 Seg Neutrophils % 63.3 Lymphocytes % 24.3 Monocytes % 8.6 Eosinophils % 2.9 Basophils % 0.9 Absolute Neutrophils 6.9 Absolute Lymphocytes 2.7 Absolute Monocytes 0.9 Absolute Eosinophils 0.3 Absolute Basophils 0.1 Carbonic Acid 1.24 HCO3/H2CO3 Ratio 19:1 ABG pH 7.38 ABG pCO2 41.1 ABG pO2 67.5 L ABG HCO3 23.8 ABG O2 Saturation 93.2 L ABG Base Excess -1.2 FiO2 21% Sodium 142.0 Potassium 3.7 Chloride 106 Carbon Dioxide 27 Anion Gap 9 BUN 7 Creatinine 0.82 Est GFR ( Amer) > 60 Est GFR (Non-Af Amer) > 60 Glucose 79 Calcium 8.5 Magnesium 2.0 Total Bilirubin 0.3 AST 19 ALT 28 Alkaline Phosphatase 61 Total Protein 5.5 L Albumin 3.1 L 04/11/19 04/11/19 04/11/19 06:33 06:33 11:56 Creatine Kinase 187 H 146 CK-MB (CK-2) 2.47 Troponin I < 0.012 04/11/19 04/11/19 04/11/19 11:56 17:43 17:43 Creatine Kinase 116 CK-MB (CK-2) 1.86 1.37 Troponin I < 0.012 < 0.012 Impressions: Head CT 04/10/19 22:39 IMPRESSION: No acute intracranial findings. Chest X-Ray 04/13/19 06:00 IMPRESSION: No significant change. Assessment and Plan - Diagnosis (1) Acute respiratory failure with hypoxia Is this a current diagnosis for this admission?: Yes (2) Toxic encephalopathy Is this a current diagnosis for this admission?: Yes Plan: Secondary to substance abuse. UDS was the positive for amphetamines. There was reported heroine and syringes close to patient when he was found unresponsive. (3) Suicidal ideation Is this a current diagnosis for this admission?: Yes Plan: He will be reevaluated by psych when he gets extubated. Family did say that he had suicidal ideations at home. He may need possible inpatient psych placement. (4) Polysubstance abuse Is this a current diagnosis for this admission?: Yes Plan: As mentioned above. (5) Pneumonia Is this a current diagnosis for this admission?: Yes Plan: Sputum culture grew haemophilus influenzae and is still growing gram-positive cocci. Continue IV antibiotics. - Time Time Spent with patient: 25-34 minutes
[2019-04-13] MEDS: VANCOMYCIN HCL 1,000 MG in DEXTROSE 5%-WATER 250 ML IV SCH ×2 (15:44→21:10)
[2019-04-13] MEDS: ACETYLCYSTEINE 10% NEB 400 MG/4 ML VIAL NEB SCH (15:57)
[2019-04-13] MEDS: IPRATROPIUM/ALBUTEROL 0.5-2.5 MG/3 ML AMPUL NEB SCH (15:57)
[2019-04-13] MEDS: POTASSIUM CHLORIDE 20 MEQ/50 ML RTU IV SCH ×2 (22:06→23:28)
[2019-04-14] MEDS: IPRATROPIUM/ALBUTEROL 0.5-2.5 MG/3 ML AMPUL NEB SCH ×4 (01:05→23:40)
[2019-04-14] MEDS: ACETYLCYSTEINE 10% NEB 400 MG/4 ML VIAL NEB SCH ×4 (01:06→23:40)
[2019-04-14] MEDS: PROPOFOL 1,000 MG/100 ML INFUS..BTL IV PRN ×7 (02:00→21:25)
[2019-04-14] MEDS: FENTANYL CITRATE INJ/PF 100 MCG/2 ML AMPUL IV PRN ×3 (02:00→11:25)
[2019-04-14 03:35] LABS: ARTERIAL BLOOD BASE EXCESS -0.1 mmol/L; ARTERIAL BLOOD H2CO3 1.32 mmol/L (1.05-1.35); ARTERIAL BLOOD HCO3 25.2 mmol/L (20-24); ARTERIAL BLOOD O2 SATURATION 95.8 % (94-98); ARTERIAL BLOOD PCO2 43.7 mmHg (35-45); ARTERIAL BLOOD PH 7.38 (7.35-7.45); ARTERIAL BLOOD PO2 81.8 mmHg (80-100); ARTERIAL BLOOD TOTAL CO2 26.6 mmol/L (23-27)
[2019-04-14 03:37] LABS: ARTERIAL BLOOD FIO2 45%
[2019-04-14] MEDS: MIDAZOLAM HCL 50 MG/100 ML RTUINJ IV PRN ×5 (04:00→22:15)
[2019-04-14 04:14] LABS: ABSOLUTE BASOPHILS # (AUTO) 0.1 10^3/uL (0.0-0.2); ABSOLUTE EOSINOPHILS # (AUTO) 0.3 10^3/uL (0.0-0.6); ABSOLUTE LYMPHOCYTES (AUTO) 1.7 10^3/uL (0.5-4.7); ABSOLUTE MONOCYTES (AUTO) 1.1 10^3/uL (0.1-1.4); ABSOLUTE NEUT (AUTO) 7.1 10^3/uL (1.7-8.2); BASOPHILS % (AUTO) 0.8 % (0-2); EOSINOPHILS % (AUTO) 3.1 % (0-6); HEMATOCRIT 35.6 % (37.9-51.0); LYMPHOCYTES % (AUTO) 16.5 % (13-45); MEAN CORPUSCULAR HEMOGLOBIN 30.9 pg (27.0-33.4); MEAN CORPUSCULAR HGB CONC 33.8 g/dL (32.0-36.0); MEAN CORPUSCULAR VOLUME 92 fl (80-97); MONOCYTES % (AUTO) 10.4 % (3-13); PLATELET COUNT 255 10^3/uL (150-450); RED BLOOD COUNT 3.88 10^6/uL (4.35-5.55); RED CELL DISTRIBUTION WIDTH 12.7 % (11.5-14.0); SEGMENTED NEUTROPHILS % (AUTO) 69.2 % (42-78); TOTAL CELLS COUNTED % (AUTO) 100 %; WHITE BLOOD COUNT 10.3 10^3/uL (4.0-10.5)
[2019-04-14 04:33] LABS: ALANINE AMINOTRANSFERASE 28 U/L (21-72); ALBUMIN 3.2 g/dL (3.5-5.0); ALKALINE PHOSPHATASE 72 U/L (38-126); ANION GAP 11 (5-19); ASPARTATE AMINO TRANSFERASE 14 U/L (17-59); BILIRUBIN,DIRECT 0.3 mg/dL (0.0-0.4); BILIRUBIN,TOTAL 0.3 mg/dL (0.2-1.3); BLOOD UREA NITROGEN 6 mg/dL (7-20); CALCIUM 8.5 mg/dL (8.4-10.2); CARBON DIOXIDE 29 mmol/L (22-30); CHLORIDE 101 mmol/L (98-107); GLUCOSE 100 mg/dL (75-110); POTASSIUM 3.7 mmol/L (3.6-5.0); SODIUM 141.3 mmol/L (137-145); TOTAL PROTEIN 5.9 g/dL (6.3-8.2)
[2019-04-14] MEDS: HEPARIN SOD (PORCINE) 5,000 UNIT/ML 1 ML SYRINGE SUBCUT SCH ×3 (05:04→21:32)
[2019-04-14] MEDS: VANCOMYCIN HCL 1,000 MG in DEXTROSE 5%-WATER 250 ML IV SCH ×2 (05:04→14:44)
--- NOTE | 2019-04-14 07:32 | RADIOLOGY REPORT (SQ) ---
EXAM DESCRIPTION: XR CHEST 1 VIEW COMPLETED DATE/TME: 04/14/2019 06:00 CLINICAL HISTORY: 48 years Male, RESPIRATORY FAILURE/ET TUBE PLACEMENT COMPARISON: One day prior. NUMBER OF VIEWS/TECHNIQUE: 1/AP FINDINGS: Bilateral lower thoracic opacity/effusion. Adequate appearing endotracheal tube. Adequate appearing enteric tube. Normal cardiac silhouette size. No pneumothorax. Stable bony thorax. IMPRESSION: No significant change.
[2019-04-14] MEDS: FUROSEMIDE INJ/PF 40 MG/4 ML SDV IV SCH ×2 (09:01→21:34)
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
[2019-04-14 14:06] LABS: VANCOMYCIN,TROUGH 9.7 ug/mL (5.0-20.0)
[2019-04-14] MEDS: CEFTRIAXONE SODIUM 1,000 MG in DEXTROSE 5%-WATER 50 ML IV SCH (14:44)
--- NOTE | 2019-04-14 15:11 | RADIOLOGY REPORT (SQ) ---
EXAM DESCRIPTION: CT CHEST WITHOUT COMPLETED DATE/TIME: 04/14/2019 2:27 pm REASON FOR STUDY: worsening chest xray COMPARISON: Chest x-rays 04/12/2019, 04/13/2019, and 04/14/2019. TECHNIQUE: CT scan performed of the chest without intravenous contrast. Images reviewed with lung, soft tissue and bone windows. Reconstructed coronal and sagittal MPR images reviewed. All images st ored on PACS. All CT scanners at this facility use dose modulation, iterative reconstruction, and/or weight based d osing when appropriate to reduce radiation dose to as low as reasonably achievable (ALARA). [facility]: Dose Right [facility]: CareDose [facility]: Dose Right [facility]: Teradose 4D [facility]: Smart [employer] RADIATION DOSE: CT Rad equipment meets quality standard of care and radiation dose reduction techniq ues were employed. CTDIvol: 14.7 mGy. DLP: 520 mGy-cm. mGy. LIMITATIONS: No technical limitations. FINDINGS: LUNGS AND PLEURA: Small right pleural effusion with smaller left pleural effusion. Airspa ce disease in both lower lobes. HILAR AND MEDIASTINAL STRUCTURES: No identified masses or abnormal nodes. No obvious aneurysm. HEART AND VASCULAR STRUCTURES: No aneurysm. No pericardial effusion. UPPER ABDOMEN: No significant findings. Limited exam. THYROID AND OTHER SOFT TISSUES: No masses. No adenopathy. BONES: No significant finding. HARDWARE: Endotracheal tube. NG tube. OTHER: No other significant findings. IMPRESSION: Pleural effusions. Airspace disease in each lower lobe, atelectasis versus pneumonia. TECHNICAL DOCUMENTATION: JOB ID: [id number] Quality ID # [id number]: Final reports with documentation of one or more dose reduction techniques (e.g., Au tomated exposure control, adjustment of the mA and/or kV according to patient size, use of iterative reconstruction technique) 2010 [employer]- All Rights Reserved Reading location - IP/workstation name: [email or web address]
--- NOTE | 2019-04-14 17:33 | PDOC PROGRESS REPORT ---
Subjective Progress Note for:: 04/14/19 Subjective:: This is a 48 year old male who presented to the emergency room via EMS having been found unresponsive with heroin and syringes were present on the scene. He was subsequently intubated. He was noted to have a positive urine drug screen for benzodiazepines and amphetamines. 04/12: Patient is intubated and sedated. Per RN, patient had significantly thick yellowish secretions coming from the ET. Patient also became very tachycardic when attempted to be weaned off sedation. 04/13: He remains intubated and sedated. He did develop fever last night and this morning. Minimal secretions on the ET today. However patient did have transient desaturation. Currently saturating at 92-93% on 40% FiO2. 04/14: No acute event overnight. Patient remains intubated and sedated. Chest CT shows bilateral lower lobe pneumonia with bilateral effusions. Reason For Visit: ACUTE MULTIPLE DRUG OVERDOSE Physical Exam Vital Signs: Temp Pulse Resp BP Pulse Ox 100.6 F H 111 H 22 H 116/77 93 04/14/19 13:02 04/14/19 15:49 04/14/19 15:49 04/14/19 14:02 04/14/19 15:49 Intake & Output 04/13/19 04/14/19 04/15/19 06:59 06:59 06:59 Intake Total 3766 1903 472 Output Total 2825 3950 1510 Balance 224 -4061 -0825 Weight 185 lb 6.54 oz 194 lb 0.108 oz General appearance: PRESENT: other - Intubated, sedated Eye exam: PRESENT: conjunctiva pink, EOMI, PERRLA. ABSENT: scleral icterus Ear exam: PRESENT: normal external ear exam Mouth exam: PRESENT: moist, tongue midline Neck exam: ABSENT: carotid bruit, JVD, lymphadenopathy, thyromegaly Respiratory exam: PRESENT: decreased breath sounds, rales. ABSENT: rhonchi, wheezes Cardiovascular exam: PRESENT: RRR. ABSENT: diastolic murmur, rubs, systolic murmur Pulses: PRESENT: normal dorsalis pedis pul GI/Abdominal exam: PRESENT: normal bowel sounds, soft. ABSENT: distended, g uarding, mass, organolmegaly, rebound, tenderness Rectal exam: PRESENT: deferred Neurological exam: PRESENT: other - Intubated, sedated Results Laboratory Results: 04/14/19 04:05 04/14/19 13:36 04/13/19 04/14/19 04/14/19 17:42 03:24 04:05 WBC 10.3 RBC 3.88 L Hgb 12.0 L Hct 35.6 L MCV 92 MCH 30.9 MCHC 33.8 RDW 12.7 Plt Count 255 Seg Neutrophils % 69.2 Lymphocytes % 16.5 Monocytes % 10.4 Eosinophils % 3.1 Basophils % 0.8 Absolute Neutrophils 7.1 Absolute Lymphocytes 1.7 Absolute Monocytes 1.1 Absolute Eosinophils 0.3 Absolute Basophils 0.1 Carbonic Acid 1.32 HCO3/H2CO3 Ratio 19:1 ABG pH 7.38 ABG pCO2 43.7 ABG pO2 81.8 ABG HCO3 25.2 H ABG O2 Saturation 95.8 ABG Base Excess -0.1 FiO2 45% Sodium Potassium 3.1 L Chloride Carbon Dioxide Anion Gap BUN Creatinine Est GFR ( Amer) Est GFR (Non-Af Amer) Glucose Calcium Magnesium Total Bilirubin AST ALT Alkaline Phosphatase Total Protein Albumin 04/14/19 04/14/19 04:05 13:36 WBC RBC Hgb Hct MCV MCH MCHC RDW Plt Count Seg Neutrophils % Lymphocytes % Monocytes % Eosinophils % Basophils % Absolute Neutrophils Absolute Lymphocytes Absolute Monocytes Absolute Eosinophils Absolute Basophils Carbonic Acid HCO3/H2CO3 Ratio ABG pH ABG pCO2 ABG pO2 ABG HCO3 ABG O2 Saturation ABG Base Excess FiO2 Sodium 141.3 Potassium 3.7 Chloride 101 Carbon Dioxide 29 Anion Gap 11 BUN 6 L Creatinine 0.80 0.71 Est GFR ( Amer) > 60 > 60 Est GFR (Non-Af Amer) > 60 > 60 Glucose 100 Calcium 8.5 Magnesium 1.8 Total Bilirubin 0.3 AST 14 L ALT 28 Alkaline Phosphatase 72 Total Protein 5.9 L Albumin 3.2 L 04/12/19 10:55 Catheterized Urine Urine Culture - Final NO GROWTH 2 DAYS 04/12/19 10:55 Sputum Gram Stain - Final 04/12/19 10:55 Sputum Sputum Culture - Final Staphylococcus Aureus Haemophilus Influenzae Greatly Reduced Normal Brionna 04/11/19 04/11/19 04/11/19 06:33 06:33 11:56 Creatine Kinase 187 H 146 CK-MB (CK-2) 2.47 Troponin I < 0.012 0604/11/19 04/11/19 11:56 17:43 17:43 Creatine Kinase 116 CK-MB (CK-2) 1.86 1.37 Troponin I < 0.012 < 0.012 Impressions: Head CT 04/10/19 22:39 IMPRESSION: No acute intracranial findings. Chest CT 04/14/19 00:00 IMPRESSION: Pleural effusions. Airspace disease in each lower lobe, atelectasis versus pneumonia. Chest X-Ray 04/14/19 06:00 IMPRESSION: No significant change. Assessment and Plan - Diagnosis (1) Acute respiratory failure with hypoxia Is this a current diagnosis for this admission?: Yes Plan: 04/13: Currently intubated and sedated. Patient became very tachycardic and slightly tachypneic when weaning off sedation was attempted. 04/14: Patient remains intubated and sedated. Chest CT shows bilateral lower lobe pneumonia with bilateral effusions. (2) Toxic encephalopathy Is this a current diagnosis for this admission?: Yes Plan: Secondary to substance abuse. UDS was the positive for amphetamines. There was reported heroine and syringes close to patient when he was found unresponsive. (3) Suicidal ideation Is this a current diagnosis for this admission?: Yes Plan: He will be reevaluated by psych when he gets extubated. Family did say that he had suicidal ideations at home. He may need possible inpatient psych placement. (4) Polysubstance abuse Is this a current diagnosis for this admission?: Yes Plan: As mentioned above. (5) Pneumonia Is this a current diagnosis for this admission?: Yes Plan: Sputum culture grew haemophilus influenzae and GPC. Continue IV antibiotics. - Time Time Spent with patient: 25-34 minutes
[2019-04-14] MEDS: PIPERACILLIN SODIUM/TAZOBACTAM 3.375 GM in NORMAL SALINE 100 ML IV SCH (18:44)
[2019-04-14] MEDS: ACETAMINOPHEN 650 MG SUPP.RECT PR PRN (18:44)
[2019-04-14] MEDS: VANCOMYCIN HCL 1,500 MG in DEXTROSE 5%-WATER 250 ML IV SCH (21:34)
[2019-04-15] MEDS: PIPERACILLIN SODIUM/TAZOBACTAM 3.375 GM in NORMAL SALINE 100 ML IV SCH ×2 (00:15→05:09)
[2019-04-15] MEDS: FENTANYL CITRATE INJ/PF 100 MCG/2 ML AMPUL IV PRN ×4 (01:36→23:50)
[2019-04-15] MEDS: MIDAZOLAM HCL 50 MG/100 ML RTUINJ IV PRN ×5 (02:41→23:53)
[2019-04-15] MEDS: PROPOFOL 1,000 MG/100 ML INFUS..BTL IV PRN ×4 (03:16→22:22)
[2019-04-15 03:46] LABS: ABSOLUTE BASOPHILS # (AUTO) 0.1 10^3/uL (0.0-0.2); ABSOLUTE EOSINOPHILS # (AUTO) 0.6 10^3/uL (0.0-0.6); ABSOLUTE LYMPHOCYTES (AUTO) 1.4 10^3/uL (0.5-4.7); ABSOLUTE MONOCYTES (AUTO) 0.8 10^3/uL (0.1-1.4); ABSOLUTE NEUT (AUTO) 7.2 10^3/uL (1.7-8.2); BASOPHILS % (AUTO) 1.2 % (0-2); EOSINOPHILS % (AUTO) 5.6 % (0-6); HEMATOCRIT 35.4 % (37.9-51.0); LYMPHOCYTES % (AUTO) 13.6 % (13-45); MEAN CORPUSCULAR HEMOGLOBIN 30.7 pg (27.0-33.4); MEAN CORPUSCULAR HGB CONC 33.7 g/dL (32.0-36.0); MEAN CORPUSCULAR VOLUME 91 fl (80-97); MONOCYTES % (AUTO) 7.7 % (3-13); PLATELET COUNT 317 10^3/uL (150-450); RED CELL DISTRIBUTION WIDTH 12.9 % (11.5-14.0); SEGMENTED NEUTROPHILS % (AUTO) 71.9 % (42-78); TOTAL CELLS COUNTED % (AUTO) 100 %
[2019-04-15 04:00] LABS: ANION GAP 10 (5-19); BLOOD UREA NITROGEN 8 mg/dL (7-20); CARBON DIOXIDE 32 mmol/L (22-30); CHLORIDE 98 mmol/L (98-107); GLUCOSE 121 mg/dL (75-110); PHOSPHORUS 4.4 mg/dL (2.5-4.5); POTASSIUM 3.6 mmol/L (3.6-5.0); SODIUM 139.9 mmol/L (137-145)
[2019-04-15 04:59] LABS: ARTERIAL BLOOD BASE EXCESS 7.6 mmol/L; ARTERIAL BLOOD H2CO3 1.54 mmol/L (1.05-1.35); ARTERIAL BLOOD HCO3 33.2 mmol/L (20-24); ARTERIAL BLOOD O2 SATURATION 97.9 % (94-98); ARTERIAL BLOOD PH 7.43 (7.35-7.45); ARTERIAL BLOOD PO2 106.4 mmHg (80-100); ARTERIAL BLOOD TOTAL CO2 34.8 mmol/L (23-27)
[2019-04-15 05:01] LABS: ARTERIAL BLOOD FIO2 45%
[2019-04-15] MEDS: HEPARIN SOD (PORCINE) 5,000 UNIT/ML 1 ML SYRINGE SUBCUT SCH ×3 (05:09→22:21)
[2019-04-15] MEDS: VANCOMYCIN HCL 1,500 MG in DEXTROSE 5%-WATER 250 ML IV SCH (05:47)
--- NOTE | 2019-04-15 07:13 | RADIOLOGY REPORT (SQ) ---
EXAM DESCRIPTION: XR CHEST 1 VIEW COMPLETED DATE/TME: 04/15/2019 06:00 CLINICAL HISTORY: 48 years Male, resp failure COMPARISON: One day prior. NUMBER OF VIEWS/TECHNIQUE: 1/AP FINDINGS: Moderate hazy opacity-effusion of bilateral lower lung gorman. Moderate bandlike opacity of the left lower lung field.Adequate appearing endotracheal tube. Adequate appearing enteric tube partially obscured. Normal cardiac silhouette size. No pneumothorax. Stable bony thorax. IMPRESSION: No significant change.
[2019-04-15] MEDS: IPRATROPIUM/ALBUTEROL 0.5-2.5 MG/3 ML AMPUL NEB SCH ×2 (08:47→17:04)
[2019-04-15] MEDS: ACETYLCYSTEINE 10% NEB 400 MG/4 ML VIAL NEB SCH ×2 (08:47→17:04)
[2019-04-15] MEDS: HYDRALAZINE HCL INJ/PF 20 MG/1 ML SDV IV PRN (12:52)
--- NOTE | 2019-04-15 13:08 | PDOC PROGRESS REPORT ---
Subjective Progress Note for:: 04/15/19 Subjective:: This is a 48 year old male who presented to the emergency room via EMS having been found unresponsive with heroin and syringes were present on the scene. He was subsequently intubated. He was noted to have a positive urine drug screen for benzodiazepines and amphetamines. 04/12: Patient is intubated and sedated. Per RN, patient had significantly thick yellowish secretions coming from the ET. Patient also became very tachycardic when attempted to be weaned off sedation. 04/13: He remains intubated and sedated. He did develop fever last night and this morning. Minimal secretions on the ET today. However patient did have transient desaturation. Currently saturating at 92-93% on 40% FiO2. 04/14: Patient remains intubated and sedated. Chest CT shows bilateral lower lobe pneumonia with bilateral effusions. 04/15: No acute event overnight. He remains sedated and intubated. Currently saturating well on 45% FiO2. Will do a weaning trial today. Reason For Visit: ACUTE MULTIPLE DRUG OVERDOSE Physical Exam Vital Signs: Temp Pulse Resp BP Pulse Ox 99.7 F 103 H 15 126/88 H 96 04/15/19 06:42 04/15/19 08:49 04/15/19 08:49 04/15/19 06:42 04/15/19 08:49 Intake & Output 04/14/19 04/15/19 04/16/19 06:59 06:59 06:59 Intake Total 1903 1809 6 Output Total 3950 3785 Balance -2046 6 Weight 194 lb 0.108 oz 192 lb 14.472 oz General appearance: PRESENT: other - Intubated, sedated Head exam: PRESENT: atraumatic, normocephalic Eye exam: PRESENT: conjunctiva pink, EOMI, PERRLA. ABSENT: scleral icterus Ear exam: PRESENT: normal external ear exam Mouth exam: PRESENT: moist, tongue midline Neck exam: ABSENT: carotid bruit, JVD, lymphadenopathy, thyromegaly Respiratory exam: PRESENT: decreased breath sounds, rhonchi. ABSENT: rales, wheezes Pulses: PRESENT: normal dorsalis pedis pul GI/Abdominal exam: PRESENT: normal bowel sounds, soft. ABSENT: distended, guarding, mass, organolmegaly, rebound, tenderness Rectal exam: PRESENT: deferred Extremities exam: PRESENT: full ROM. ABSENT: calf tenderness, clubbing, pedal edema Neurological exam: PRESENT: other - Intubated sedated Results Laboratory Results: 04/15/19 03:14 04/15/19 03:14 04/14/19 04/15/19 04/15/19 13:36 03:14 03:14 WBC 10.0 RBC 3.90 L Hgb 12.0 L Hct 35.4 L MCV 91 MCH 30.7 MCHC 33.7 RDW 12.9 Plt Count 317 Seg Neutrophils % 71.9 Lymphocytes % 13.6 Monocytes % 7.7 Eosinophils % 5.6 Basophils % 1.2 Absolute Neutrophils 7.2 Absolute Lymphocytes 1.4 Absolute Monocytes 0.8 Absolute Eosinophils 0.6 Absolute Basophils 0.1 Carbonic Acid HCO3/H2CO3 Ratio ABG pH ABG pCO2 ABG pO2 ABG HCO3 ABG O2 Saturation ABG Base Excess FiO2 Sodium 139.9 Potassium 3.6 Chloride 98 Carbon Dioxide 32 H Anion Gap 10 BUN 8 Creatinine 0.71 0.74 Est GFR ( Amer) > 60 > 60 Est GFR (Non-Af Amer) > 60 > 60 Glucose 121 H Calcium 9.0 Phosphorus 4.4 Magnesium 2.0 04/15/19 04:45 WBC RBC Hgb Hct MCV MCH MCHC RDW Plt Count Seg Neutrophils % Lymphocytes % Monocytes % Eosinophils % Basophils % Absolute Neutrophils Absolute Lymphocytes Absolute Monocytes Absolute Eosinophils Absolute Basophils Carbonic Acid 1.54 H HCO3/H2CO3 Ratio 21:1 ABG pH 7.43 ABG pCO2 51.0 H ABG pO2 106.4 H ABG HCO3 33.2 H ABG O2 Saturation 97.9 ABG Base Excess 7.6 FiO2 45% Sodium Potassium Chloride Carbon Dioxide Anion Gap BUN Creatinine Est GFR ( Amer) Est GFR (Non-Af Amer) Glucose Calcium Phosphorus Magnesium 04/12/19 10:55 Catheterized Urine Urine Culture - Final NO GROWTH 2 DAYS 04/12/19 10:55 Sputum Gram Stain - Final 04/12/19 10:55 Sputum Sputum Culture - Final Staphylococcus Aureus Haemophilus Influenzae Greatly Reduced Normal Brionna 04/11/19 04/11/19 04/11/19 06:33 06:33 11:56 Creatine Kinase 187 H 146 CK-MB (CK-2) 2.47 Troponin I < 0.012 04/11/19 04/11/19 04/11/19 11:56 17:43 17:43 Creatine Kinase 116 CK-MB (CK-2) 1.86 1.37 Troponin I < 0.012 < 0.012 Impressions: Head CT 04/10/19 22:39 IMPRESSION: No acute intracranial findings. Chest CT 04/14/19 00:00 IMPRESSION: Pleural effusions. Airspace disease in each lower lobe, atelectasis versus pneumonia. Chest X-Ray 04/15/19 06:00 IMPRESSION: No significant change. Assessment and Plan - Diagnosis (1) Acute respiratory failure with hypoxia Is this a current diagnosis for this admission?: Yes Plan: 04/13: Currently intubated and sedated. Patient became very tachycardic and slightly tachypneic when weaning off sedation was attempted. 04/14: Patient remains intubated and sedated. Chest CT shows bilateral lower lobe pneumonia with bilateral effusions. 04/15: He remains sedated and intubated. Currently saturating well on 45% FiO2. Will do a weaning trial today. (2) Toxic encephalopathy Is this a current diagnosis for this admission?: Yes Plan: Secondary to substance abuse. UDS was the positive for amphetamines. There was reported heroine and syringes close to patient when he was found unresponsive. (3) Suicidal ideation Is this a current diagnosis for this admission?: Yes Plan: He will be reevaluated by psych when he gets extubated. Family did say that he had suicidal ideations at home. He may need possible inpatient psych placement. (4) Polysubstance abuse Is this a current diagnosis for this admission?: Yes Plan: As mentioned above. (5) Pneumonia Is this a current diagnosis for this admission?: Yes Plan: Sputum culture grew haemophilus influenzae and MSSA. Discontinue vancomycin and Zosyn. Switch to Rocephin. - Time Time Spent with patient: 25-34 minutes
[2019-04-15 17:48] LABS: AMPHETAMINE CONFIRMATION UR Positive (.); BENZODIAZEPINE CONFIRMATION UR Positive (.)
--- NOTE | 2019-04-15 18:46 | RADIOLOGY REPORT (SQ) ---
EXAM DESCRIPTION: CHEST SINGLE VIEW COMPLETED DATE/TIME: 04/15/2019 6:09 pm REASON FOR STUDY: pneumonia COMPARISON: 04/15/2019 NUMBER OF VIEWS: One view. TECHNIQUE: Single frontal radiographic image of the chest acquired. LIMITATIONS: None. FINDINGS: ENDOTRACHEAL TUBE: Endotracheal tube Tip overlies the upper 3rd of the trachea, approximat abhijit 9.5 cm above the level of the neela, previously 8.1 cm. OTHER SUPPORT DEVICES: Nasogastric catheter tip overlies the body of the stomach. CHANGES IN RADIOGRAPHIC FINDINGS: Slightly increased bibasilar airspace opacities, left greater than right. HARDWARE: None in the chest. OTHER: No other significant finding. IMPRESSION: Endotracheal tube Tip overlies the upper 3rd of the trachea, approximately 9.5 cm above the level of the neela, previously 8.1 cm.. Slightly increased bibasilar airspace opacities, left g reater than right. TECHNICAL DOCUMENTATION: JOB ID: [id number] [place]-72 2010 [employer]- All Rights Reserved Reading location - IP/workstation name: [email or web address]
[2019-04-15] MEDS: ACETAMINOPHEN 650 MG SUPP.RECT PR PRN (20:30)
[2019-04-15] MEDS ORDERED: FUROSEMIDE INJ/PF 40 MG/4 ML SDV IV SCH (22:00)
[2019-04-15] MEDS: FUROSEMIDE INJ/PF 20 MG/2 ML SDV IV SCH (22:21)
[2019-04-16] MEDS: IPRATROPIUM/ALBUTEROL 0.5-2.5 MG/3 ML AMPUL NEB SCH ×3 (00:04→17:03)
[2019-04-16] MEDS: PROPOFOL 1,000 MG/100 ML INFUS..BTL IV PRN ×4 (01:54→21:10)
[2019-04-16] MEDS: METOPROLOL TARTRATE PF/INJ 5 MG/5 ML SDV IV PRN ×3 (01:58→21:04)
[2019-04-16] MEDS: ACETYLCYSTEINE 10% NEB 400 MG/4 ML VIAL NEB SCH ×3 (02:23→17:04)
[2019-04-16] MEDS: HYDRALAZINE HCL INJ/PF 20 MG/1 ML SDV IV PRN ×2 (04:18→10:05)
[2019-04-16] MEDS: FENTANYL CITRATE INJ/PF 100 MCG/2 ML AMPUL IV PRN ×2 (04:40→20:50)
[2019-04-16] MEDS: HEPARIN SOD (PORCINE) 5,000 UNIT/ML 1 ML SYRINGE SUBCUT SCH ×3 (05:07→21:07)
[2019-04-16] MEDS: MIDAZOLAM HCL 50 MG/100 ML RTUINJ IV PRN ×4 (05:09→20:49)
[2019-04-16 05:31] LABS: ARTERIAL BLOOD BASE EXCESS 6.9 mmol/L; ARTERIAL BLOOD H2CO3 1.42 mmol/L (1.05-1.35); ARTERIAL BLOOD HCO3 31.9 mmol/L (20-24); ARTERIAL BLOOD O2 SATURATION 97.8 % (94-98); ARTERIAL BLOOD PCO2 47.2 mmHg (35-45); ARTERIAL BLOOD PH 7.45 (7.35-7.45); ARTERIAL BLOOD PO2 100.6 mmHg (80-100); ARTERIAL BLOOD TOTAL CO2 33.4 mmol/L (23-27)
[2019-04-16 05:32] LABS: ARTERIAL BLOOD FIO2 45%
--- NOTE | 2019-04-16 06:53 | RADIOLOGY REPORT (SQ) ---
EXAM DESCRIPTION: XR CHEST 1 VIEW COMPLETED DATE/TME: 04/16/2019 06:00 CLINICAL HISTORY: 48 years, Male, resp failure COMPARISON: 04/15/2019 NUMBER OF VIEWS: One TECHNIQUE: AP view the chest LIMITATIONS: None. FINDINGS: Again noted are bibasilar airspace opacities. The heart size is stable. There is no pneumothorax or large pleural effusion. The endotracheal tube terminates approximately 1.4 cm above the neela. A nasogastric tube remains in satisfactory position IMPRESSION: Persistent high placement of the endotracheal tube. Grossly stable bibasilar airspace opacities. copyright 2010 [employer]- All Rights Reserved
--- NOTE | 2019-04-16 09:32 | RADIOLOGY REPORT (SQ) ---
EXAM DESCRIPTION: CHEST SINGLE VIEW COMPLETED DATE/TIME: 04/16/2019 9:08 am REASON FOR STUDY: ET Tube Placement COMPARISON: Earlier the same day. NUMBER OF VIEWS: One view. TECHNIQUE: Single frontal radiographic image of the chest acquired. LIMITATIONS: None. FINDINGS: LUNGS AND PLEURA: Small effusions, left greater than right. No pneumothorax. MEDIASTINUM AND HEART: Stable heart size and mediastinal structures. SUPPORT DEVICES: High position of endotracheal tube at the thoracic inlet. This could be advanced 6 to 7 cm. BONY STRUCTURES: No acute findings. HARDWARE: None. OTHER: No other significant finding. IMPRESSION: High position of endotracheal tube. No pneumothorax. Reading location - IP/workstation name: [email or web address]
[2019-04-16] MEDS: FUROSEMIDE INJ/PF 20 MG/2 ML SDV IV SCH ×2 (09:57→21:07)
[2019-04-16] MEDS ORDERED: CEFTRIAXONE SODIUM 1,000 MG in DEXTROSE 5%-WATER 50 ML IV SCH (10:00)
[2019-04-16] MEDS ORDERED: CEFTRIAXONE 1 GM/D5W RTU 1 GM/50 ML RTUPB IV SCH (10:00)
--- NOTE | 2019-04-16 17:42 | RADIOLOGY REPORT (SQ) ---
EXAM DESCRIPTION: CHEST SINGLE VIEW COMPLETED DATE/TIME: 04/16/2019 4:43 pm REASON FOR STUDY: ET tube readjusted COMPARISON: Earlier exam same date NUMBER OF VIEWS: One view. TECHNIQUE: Single frontal radiographic image of the chest acquired. LIMITATIONS: None. FINDINGS: ENDOTRACHEAL TUBE: Endotracheal tube tip is approximately 8.5 cm above the level of the ca john. OTHER SUPPORT DEVICES: NG tube tip overlies the body of the stomach. CHANGES IN RADIOGRAPHIC FINDINGS: None. Stable appearance. HARDWARE: None in the chest. OTHER: No other significant finding. IMPRESSION: Endotracheal tube tip is approximately 8.5 cm above the level of the neela.STABLE APPEA TRES OF THE CHEST. TECHNICAL DOCUMENTATION: JOB ID: [id number] [place]-[id number] 2010 [employer]- All Rights Reserved Reading location - IP/workstation name: [email or web address]
--- NOTE | 2019-04-16 19:04 | RADIOLOGY REPORT (SQ) ---
EXAM DESCRIPTION: CHEST SINGLE VIEW COMPLETED DATE/TIME: 04/16/2019 6:44 pm REASON FOR STUDY: ET Tube Placement COMPARISON: Earlier exam same date NUMBER OF VIEWS: One view. TECHNIQUE: Single frontal radiographic image of the chest acquired. LIMITATIONS: None. FINDINGS: ENDOTRACHEAL TUBE: Endotracheal tube tip overlies the lower trachea approximately 3.3 cm a erlinda the level of the neela. OTHER SUPPORT DEVICES: None. CHANGES IN RADIOGRAPHIC FINDINGS: Increasing right basilar airspace opacities. Similar left basilar markings. HARDWARE: Nasogastric catheter tip overlies the region of the distal body of the stomach. OTHER: No other significant finding. IMPRESSION: Increasing right basilar airspace opacities.Endotracheal tube tip overlies the lower tra ligia approximately 3.3 cm above the level of the neela. TECHNICAL DOCUMENTATION: JOB ID: [id number] [id number] 2010 [employer]- All Rights Reserved Reading location - IP/workstation name: [email or web address]
--- NOTE | 2019-04-16 19:18 | PDOC PROGRESS REPORT ---
Subjective Progress Note for:: 04/16/19 Subjective:: This is a 48 year old male who presented to the emergency room via EMS having been found unresponsive with heroin and syringes were present on the scene. He was subsequently intubated. He was noted to have a positive urine drug screen for benzodiazepines and amphetamines. 04/12: Patient is intubated and sedated. Per RN, patient had significantly thick yellowish secretions coming from the ET. Patient also became very tachycardic when attempted to be weaned off sedation. 04/13: He remains intubated and sedated. He did develop fever last night and this morning. Minimal secretions on the ET today. However patient did have transient desaturation. Currently saturating at 92-93% on 40% FiO2. 04/14: Patient remains intubated and sedated. Chest CT shows bilateral lower lobe pneumonia with bilateral effusions. 04/15: He remains sedated and intubated. Currently saturating well on 45% FiO2. Will do a weaning trial today. 04/16: Patient remains sedated. Patient's sister disclosed today that he might have overdosed on a whole bottle of Vyvanse as her daughter's entire bottle of Vyvanse was found empty and she says that patient has had a prior history of o verdosing on pills. He is saturating at 92 to 92% on 45% FiO2. He continues to have copious, thick yellowish secretions. There is a question if the ET tube was coiled as it remained away above the neela despite adjustment and pushing down by several centimeters based on location on chest x-ray. Attempted to replace tube with a bougie but was unsuccessful. ET tube was taken out and was replaced successfully. Reason For Visit: ACUTE MULTIPLE DRUG OVERDOSE Physical Exam Vital Signs: Temp Pulse Resp BP Pulse Ox 100.6 F H 114 H 17 146/80 H 91 L 04/16/19 16:00 04/16/19 17:04 04/16/19 17:04 04/16/19 16:00 04/16/19 17:04 Intake & Output 04/15/19 04/16/19 04/17/19 06:59 06:59 06:59 Intake Total 1809 881 300 Output Total 8339 1060 1455 Balance -1975 -179 -1155 Weight 192 lb 14.472 oz General appearance: PRESENT: other - Intubated, sedated Head exam: PRESENT: atraumatic, normocephalic Eye exam: PRESENT: conjunctiva pink, EOMI, PERRLA. ABSENT: scleral icterus Ear exam: PRESENT: normal external ear exam Mouth exam: PRESENT: moist, tongue midline Neck exam: ABSENT: carotid bruit, JVD, lymphadenopathy, thyromegaly Respiratory exam: PRESENT: rales, rhonchi. ABSENT: wheezes Cardiovascular exam: PRESENT: RRR. ABSENT: diastolic murmur, rubs, systolic murmur Pulses: PRESENT: normal dorsalis pedis pul GI/Abdominal exam: PRESENT: normal bowel sounds, soft. ABSENT: distended, guarding, mass, organolmegaly, rebound, tenderness Rectal exam: PRESENT: deferred Neurological exam: PRESENT: other - Intubated, sedated Results Laboratory Results: 04/15/19 03:14 04/15/19 03:14 04/16/19 05:25 Carbonic Acid 1.42 H HCO3/H2CO3 Ratio 22:1 ABG pH 7.45 ABG pCO2 47.2 H ABG pO2 100.6 H ABG HCO3 31.9 H ABG O2 Saturation 97.8 ABG Base Excess 6.9 FiO2 45% 04/11/19 04/11/19 04/11/19 06:33 06:33 11:56 Creatine Kinase 187 H 146 CK-MB (CK-2) 2.47 Troponin I < 0.012 04/11/19 04/11/19 04/11/19 11:56 17:43 17:43 Creatine Kinase 116 CK-MB (CK-2) 1.86 1.37 Troponin I < 0.012 < 0.012 Impressions: Head CT 04/10/19 22:39 IMPRESSION: No acute intracranial findings. Chest CT 04/14/19 00:00 IMPRESSION: Pleural effusions. Airspace disease in each lower lobe, atelect asis versus pneumonia. Chest X-Ray 04/16/19 08:57 IMPRESSION: High position of endotracheal tube. No pneumothorax. Assessment and Plan - Diagnosis (1) Acute respiratory failure with hypoxia Is this a current diagnosis for this admission?: Yes Plan: 04/13: Currently intubated and sedated. Patient became very tachycardic and slightly tachypneic when weaning off sedation was attempted. 04/14: Patient remains intubated and sedated. Chest CT shows bilateral lower lobe pneumonia with bilateral effusions. 04/15: He remains sedated and intubated. Currently saturating well on 45% FiO2. Will do a weaning trial today. 04/16: Patient remains sedated. Patient's sister disclosed today that he might have overdosed on a whole bottle of Vyvanse as her daughter's entire bottle of Vyvanse was found empty and she says that patient has had a prior history of overdosing on pills. He is saturating at 92 to 92% on 45% FiO2. He continues to have copious, thick yellowish secretions. There is a question if the ET tube was coiled as it remained away above the neela despite adjustment and pushing down by several centimeters based on location on chest x-ray. Attempted to replace tube with a bougie but was unsuccessful. ET tube was taken out and was replaced successfully. (2) Toxic encephalopathy Is this a current diagnosis for this admission?: Yes Plan: Secondary to substance abuse. UDS was the positive for amphetamines. There was reported heroine and syringes close to patient when he was found unresponsive. 03/16: Possible Vyvanse overdose as mentioned. (3) Suicidal ideation Is this a current diagnosis for this admission?: Yes Plan: He will be reevaluated by psych when he gets extubated. Family did say that he had suicidal ideations at home. He may need possible inpatient psych placement. (4) Polysubstance abuse Is this a current diagnosis for this admission?: Yes Plan: As mentioned above. (5) Pneumonia Is this a current diagnosis for this admission?: Yes Plan: Sputum culture grew haemophilus influenzae and MSSA. Discontinue vancomycin and Zosyn. Switched to Rocephin. 04/16: Patient continues to have copious, very thick, yellowish secretions coming from the ET despite being on Rocephin. We will switch patient to Zosyn. Repeat sputum culture. - Time Time Spent with patient: 25-34 minutes
[2019-04-16] MEDS ORDERED: PIPERACILLIN/TAZOBACTAM 3.375 GM VIAL IV ONE (23:40)
[2019-04-17] MEDS: IPRATROPIUM/ALBUTEROL 0.5-2.5 MG/3 ML AMPUL NEB SCH ×3 (00:11→16:54)
[2019-04-17] MEDS: ACETYLCYSTEINE 10% NEB 400 MG/4 ML VIAL NEB SCH ×3 (00:11→16:54)
[2019-04-17] MEDS: ACETAMINOPHEN 650 MG SUPP.RECT PR PRN ×3 (00:17→15:37)
[2019-04-17] MEDS: PIPERACILLIN SODIUM/TAZOBACTAM 3.375 GM in NORMAL SALINE 100 ML IV SCH ×5 (00:17→23:15)
[2019-04-17] MEDS: PROPOFOL 1,000 MG/100 ML INFUS..BTL IV PRN ×6 (00:31→23:05)
[2019-04-17] MEDS: FENTANYL CITRATE INJ/PF 100 MCG/2 ML AMPUL IV PRN ×3 (01:50→22:11)
[2019-04-17] MEDS: MIDAZOLAM HCL 50 MG/100 ML RTUINJ IV PRN ×3 (02:10→18:35)
[2019-04-17 05:09] LABS: ARTERIAL BLOOD BASE EXCESS 8.1 mmol/L; ARTERIAL BLOOD H2CO3 1.49 mmol/L (1.05-1.35); ARTERIAL BLOOD HCO3 33.4 mmol/L (20-24); ARTERIAL BLOOD PCO2 49.5 mmHg (35-45); ARTERIAL BLOOD PH 7.45 (7.35-7.45); ARTERIAL BLOOD PO2 88.9 mmHg (80-100); ARTERIAL BLOOD TOTAL CO2 34.9 mmol/L (23-27)
[2019-04-17 05:11] LABS: ARTERIAL BLOOD FIO2 35%
[2019-04-17] MEDS: HYDRALAZINE HCL INJ/PF 20 MG/1 ML SDV IV PRN ×3 (05:16→17:24)
[2019-04-17] MEDS: HEPARIN SOD (PORCINE) 5,000 UNIT/ML 1 ML SYRINGE SUBCUT SCH ×3 (05:17→21:46)
[2019-04-17] MEDS: METOPROLOL TARTRATE PF/INJ 5 MG/5 ML SDV IV PRN ×3 (05:33→17:23)
[2019-04-17 05:48] LABS: ALANINE AMINOTRANSFERASE 19 U/L (21-72); ALBUMIN 3.7 g/dL (3.5-5.0); ALKALINE PHOSPHATASE 78 U/L (38-126); ANION GAP 13 (5-19); ASPARTATE AMINO TRANSFERASE 17 U/L (17-59); BILIRUBIN,DIRECT 0.4 mg/dL (0.0-0.4); BILIRUBIN,TOTAL 0.5 mg/dL (0.2-1.3); BLOOD UREA NITROGEN 20 mg/dL (7-20); CALCIUM 9.5 mg/dL (8.4-10.2); CARBON DIOXIDE 34 mmol/L (22-30); CHLORIDE 97 mmol/L (98-107); GLUCOSE 108 mg/dL (75-110); POTASSIUM 3.4 mmol/L (3.6-5.0); SODIUM 143.5 mmol/L (137-145); TOTAL PROTEIN 6.9 g/dL (6.3-8.2)
--- NOTE | 2019-04-17 07:15 | RADIOLOGY REPORT (SQ) ---
EXAM DESCRIPTION: XR CHEST 1 VIEW COMPLETED DATE/TME: 04/17/2019 06:00 CLINICAL HISTORY: 48 years Male, resp failure COMPARISON: One day prior. NUMBER OF VIEWS/TECHNIQUE: 1/AP FINDINGS: Small patchy and streaky opacity bilateral lower lung gorman. Mild interstitial markings.Adequate appearing endotracheal tube. Adequate appearing enteric tube partially obscured. Normal cardiac silhouette size. No pneumothorax. Stable bony thorax. IMPRESSION: No significant change.
[2019-04-17 08:45] LABS: ABSOLUTE BASOPHILS # (AUTO) 0.2 10^3/uL (0.0-0.2); ABSOLUTE EOSINOPHILS # (AUTO) 0.9 10^3/uL (0.0-0.6); ABSOLUTE LYMPHOCYTES (AUTO) 3.3 10^3/uL (0.5-4.7); ABSOLUTE MONOCYTES (AUTO) 1.5 10^3/uL (0.1-1.4); ABSOLUTE NEUT (AUTO) 9.3 10^3/uL (1.7-8.2); BASOPHILS % (AUTO) 1.1 % (0-2); EOSINOPHILS % (AUTO) 6.2 % (0-6); HEMATOCRIT 37.5 % (37.9-51.0); HEMOGLOBIN 12.4 g/dL (13.5-17.0); LYMPHOCYTES % (AUTO) 21.7 % (13-45); MEAN CORPUSCULAR HEMOGLOBIN 30.6 pg (27.0-33.4); MEAN CORPUSCULAR VOLUME 93 fl (80-97); MONOCYTES % (AUTO) 9.7 % (3-13); PLATELET COUNT 442 10^3/uL (150-450); RED BLOOD COUNT 4.04 10^6/uL (4.35-5.55); RED CELL DISTRIBUTION WIDTH 13.1 % (11.5-14.0); SEGMENTED NEUTROPHILS % (AUTO) 61.3 % (42-78); TOTAL CELLS COUNTED % (AUTO) 100 %; WHITE BLOOD COUNT 15.1 10^3/uL (4.0-10.5)
[2019-04-17] MEDS: FUROSEMIDE INJ/PF 20 MG/2 ML SDV IV SCH ×2 (09:18→21:45)
--- NOTE | 2019-04-17 14:51 | PDOC PROGRESS REPORT ---
Subjective Progress Note for:: 04/17/19 Subjective:: This is a 48 year old male who presented to the emergency room via EMS having been found unresponsive with heroin and syringes were present on the scene. He was subsequently intubated. He was noted to have a positive urine drug screen for benzodiazepines and amphetamines. 04/12: Patient is intubated and sedated. Per RN, patient had significantly thick yellowish secretions coming from the ET. Patient also became very tachycardic when attempted to be weaned off sedation. 04/13: He remains intubated and sedated. He did develop fever last night and this morning. Minimal secretions on the ET today. However patient did have transient desaturation. Currently saturating at 92-93% on 40% FiO2. 04/14: Patient remains intubated and sedated. Chest CT shows bilateral lower lobe pneumonia with bilateral effusions. 04/15: He remains sedated and intubated. Currently saturating well on 45% FiO2. Will do a weaning trial today. 04/16: Patient remains sedated. Patient's sister disclosed today that he might have overdosed on a whole bottle of Vyvanse as her daughter's entire bottle of Vyvanse was found empty and she says that patient has had a prior history of o verdosing on pills. He is saturating at 92 to 92% on 45% FiO2. He continues to have copious, thick yellowish secretions. There is a question if the ET tube was coiled as it remained away above the neela despite adjustment and pushing down by several centimeters based on location on chest x-ray. Attempted to replace tube with a bougie but was unsuccessful. ET tube was taken out and was replaced successfully. 04/17: No acute event overnight. Patient remains sedated and intubated. Reviewed chest x-ray, there is slight improvement from yesterday. He does continue to have thick, yellowish secretions on the ET. Now able to come down on the FiO2 from 45% to 35%. Reason For Visit: ACUTE MULTIPLE DRUG OVERDOSE Physical Exam Vital Signs: Temp Pulse Resp BP Pulse Ox 100.4 F 113 H 13 143/100 H 94 04/17/19 11:02 04/17/19 10:00 04/17/19 11:02 04/17/19 11:02 04/17/19 12:00 Intake & Output 04/16/19 04/17/19 04/18/19 06:59 06:59 06:59 Intake Total 881 983 344 Output Total 6114 6585 195 Balance -179 -1732 149 Weight 184 lb 1.376 oz General appearance: PRESENT: other - Intubated, sedated Head exam: PRESENT: atraumatic, normocephalic Eye exam: PRESENT: conjunctiva pink, EOMI, PERRLA. ABSENT: scleral icterus Ear exam: PRESENT: normal external ear exam Mouth exam: PRESENT: moist, tongue midline Neck exam: ABSENT: carotid bruit, JVD, lymphadenopathy, thyromegaly Respiratory exam: PRESENT: rales - [id number], rhonchi. ABSENT: wheezes Cardiovascular exam: PRESENT: RRR. ABSENT: diastolic murmur, rubs, systolic murmur Pulses: PRESENT: normal dorsalis pedis pul GI/Abdominal exam: PRESENT: normal bowel sounds, soft. ABSENT: distended, guarding, mass, organolmegaly, rebound, tenderness Rectal exam: PRESENT: deferred Neurological exam: PRESENT: other - Intubated, sedated Results Laboratory Results: 04/17/19 05:20 04/17/19 05:20 04/17/19 04/17/19 04/17/19 04:44 05:20 05:20 WBC 15.1 H RBC 4.04 L Hgb 12.4 L Hct 37.5 L MCV 93 MCH 30.6 MCHC 33.0 RDW 13.1 Plt Count 442 Seg Neutrophils % 61.3 Lymphocytes % 21.7 Monocytes % 9.7 Eosinophils % 6.2 H Basophils % 1.1 Absolute Neutrophils 9.3 H Absolute Lymphocytes 3.3 Absolute Monocytes 1.5 H Absolute Eosinophils 0.9 H Absolute Basophils 0.2 Carbonic Acid 1.49 H HCO3/H2CO3 Ratio 22:1 ABG pH 7.45 ABG pCO2 49.5 H ABG pO2 88.9 ABG HCO3 33.4 H ABG O2 Saturation 97.0 ABG Base Excess 8.1 FiO2 35% Sodium 143.5 Potassium 3.4 L Chloride 97 L Carbon Dioxide 34 H Anion Gap 13 BUN 20 Creatinine 0.86 Est GFR ( Amer) > 60 Est GFR (Non-Af Amer) > 60 Glucose 108 Calcium 9.5 Total Bilirubin 0.5 AST 17 ALT 19 L Alkaline Phosphatase 78 Total Protein 6.9 Albumin 3.7 04/11/19 04/11/19 04/11/19 06:33 06:33 11:56 Creatine Kinase 187 H 146 CK-MB (CK-2) 2.47 Troponin I < 0.012 04/11/19 04/11/19 04/11/19 11:56 17:43 17:43 Creatine Kinase 116 CK-MB (CK-2) 1.86 1.37 Troponin I < 0.012 < 0.012 Impressions: Head CT 04/10/19 22:39 IMPRESSION: No acute intracranial findings. Chest CT 04/14/19 00:00 IMPRESSION: Pleural effusions. Airspace disease in each lower lobe, atelectasis versus pneumonia. Chest X-Ray 04/17/19 06:00 IMPRESSION: No significant change. Assessment and Plan - Diagnosis (1) Acute respiratory failure with hypoxia Is this a current diagnosis for this admission?: Yes Plan: 04/13: Currently intubated and sedated. Patient became very tachycardic and slightly tachypneic when weaning off sedation was attempted. 04/14: Patient remains intubated and sedated. Chest CT shows bilateral lower lobe pneumonia with bilateral effusions. 04/15: He remains sedated and intubated. Currently saturating well on 45% FiO2. Will do a weaning trial today. 04/16: Patient remains sedated. Patient's sister disclosed today that he might have overdosed on a whole bottle of Vyvanse as her daughter's entire bottle of Vyvanse was found empty and she says that patient has had a prior history of overdosing on pills. He is saturating at 92 to 92% on 45% FiO2. He continues to have copious, thick yellowish secretions. There is a question if the ET tube was coiled as it remained away above the neela despite adjustment and pushing down by several centimeters based on location on chest x-ray. Attempted to replace ET tube with a bougie but was unsuccessful. ET tube was taken out and was replaced successfully. (2) Toxic encephalopathy Is this a current diagnosis for this admission?: Yes Plan: Secondary to substance abuse. UDS was the positive for amphetamines. There was reported heroine and syringes close to patient when he was found unresponsive. 03/16: Possible Vyvanse overdose as mentioned. (3) Suicidal ideation Is this a current diagnosis for this admission?: Yes Plan: He will be reevaluated by psych when he gets extubated. Family did say that he had suicidal ideations at home. He may need possible inpatient psych placement. (4) Polysubstance abuse Is this a current diagnosis for this admission?: Yes Plan: As mentioned above. (5) Pneumonia Is this a current diagnosis for this admission?: Yes Plan: Sputum culture grew haemophilus influenzae and MSSA. Discontinue vancomycin and Zosyn. Switched to Rocephin. 04/16: Patient continues to have copious, very thick, yellowish secretions coming from the ET despite being on Rocephin. We will switch patient to Zosyn. Repeat sputum culture. - Time Time Spent with patient: 25-34 minutes
[2019-04-17] MEDS ORDERED: POTASSIUM CHLORIDE 20 MEQ PACKET PO ONE (16:38)
[2019-04-18] MEDS: IPRATROPIUM/ALBUTEROL 0.5-2.5 MG/3 ML AMPUL NEB SCH ×3 (00:48→15:44)
[2019-04-18] MEDS: ACETYLCYSTEINE 10% NEB 400 MG/4 ML VIAL NEB SCH ×3 (00:48→15:44)
[2019-04-18] MEDS: MIDAZOLAM HCL 50 MG/100 ML RTUINJ IV PRN ×3 (02:05→21:39)
[2019-04-18] MEDS: FENTANYL CITRATE INJ/PF 100 MCG/2 ML AMPUL IV PRN ×4 (02:11→21:39)
[2019-04-18] MEDS: PROPOFOL 1,000 MG/100 ML INFUS..BTL IV PRN ×6 (02:31→21:38)
[2019-04-18 04:08] LABS: ABSOLUTE BASOPHILS # (AUTO) 0.2 10^3/uL (0.0-0.2); ABSOLUTE LYMPHOCYTES (AUTO) 1.9 10^3/uL (0.5-4.7); ABSOLUTE MONOCYTES (AUTO) 1.1 10^3/uL (0.1-1.4); ABSOLUTE NEUT (AUTO) 5.7 10^3/uL (1.7-8.2); BASOPHILS % (AUTO) 1.6 % (0-2); EOSINOPHILS % (AUTO) 9.8 % (0-6); HEMATOCRIT 36.7 % (37.9-51.0); HEMOGLOBIN 12.5 g/dL (13.5-17.0); LYMPHOCYTES % (AUTO) 19.1 % (13-45); MEAN CORPUSCULAR HEMOGLOBIN 31.1 pg (27.0-33.4); MEAN CORPUSCULAR VOLUME 91 fl (80-97); PLATELET COUNT 451 10^3/uL (150-450); RED BLOOD COUNT 4.02 10^6/uL (4.35-5.55); RED CELL DISTRIBUTION WIDTH 13.1 % (11.5-14.0); SEGMENTED NEUTROPHILS % (AUTO) 58.5 % (42-78); TOTAL CELLS COUNTED % (AUTO) 100 %; WHITE BLOOD COUNT 9.8 10^3/uL (4.0-10.5)
[2019-04-18 04:35] LABS: ALANINE AMINOTRANSFERASE 35 U/L (21-72); ALBUMIN 3.5 g/dL (3.5-5.0); ALKALINE PHOSPHATASE 70 U/L (38-126); ANION GAP 11 (5-19); ASPARTATE AMINO TRANSFERASE 36 U/L (17-59); BILIRUBIN,DIRECT 0.4 mg/dL (0.0-0.4); BILIRUBIN,TOTAL 0.4 mg/dL (0.2-1.3); BLOOD UREA NITROGEN 28 mg/dL (7-20); CALCIUM 9.5 mg/dL (8.4-10.2); CARBON DIOXIDE 33 mmol/L (22-30); CHLORIDE 101 mmol/L (98-107); GLUCOSE 128 mg/dL (75-110); POTASSIUM 3.3 mmol/L (3.6-5.0); SODIUM 144.6 mmol/L (137-145); TOTAL PROTEIN 6.6 g/dL (6.3-8.2)
[2019-04-18] MEDS: HEPARIN SOD (PORCINE) 5,000 UNIT/ML 1 ML SYRINGE SUBCUT SCH ×3 (05:34→21:42)
[2019-04-18] MEDS: PIPERACILLIN SODIUM/TAZOBACTAM 3.375 GM in NORMAL SALINE 100 ML IV SCH ×4 (05:35→23:45)
[2019-04-18 05:51] LABS: ARTERIAL BLOOD BASE EXCESS 12.3 mmol/L; ARTERIAL BLOOD H2CO3 1.76 mmol/L (1.05-1.35); ARTERIAL BLOOD HCO3 39.1 mmol/L (20-24); ARTERIAL BLOOD O2 SATURATION 97.3 % (94-98); ARTERIAL BLOOD PCO2 58.5 mmHg (35-45); ARTERIAL BLOOD PH 7.44 (7.35-7.45); ARTERIAL BLOOD PO2 94.4 mmHg (80-100); ARTERIAL BLOOD TOTAL CO2 40.9 mmol/L (23-27)
[2019-04-18 05:52] LABS: ARTERIAL BLOOD FIO2 35%
[2019-04-18] MEDS: FUROSEMIDE INJ/PF 20 MG/2 ML SDV IV SCH ×2 (10:47→21:42)
--- NOTE | 2019-04-18 14:57 | PDOC PROGRESS REPORT ---
Subjective Progress Note for:: 04/18/19 Subjective:: 48 year old male who presented to the emergency room via EMS having been found unresponsive with heroin and syringes were present on the scene. He was subsequently intubated. He was noted to have a positive urine drug screen for benzodiazepines and amphetamines. 04/12: Patient is intubated and sedated. Per RN, patient had significantly thick yellowish secretions coming from the ET. Patient also became very tachycardic when attempted to be weaned off sedation. 04/13: He remains intubated and sedated. He did develop fever last night and this morning. Minimal secretions on the ET today. However patient did have transient desaturation. Currently saturating at 92-93% on 40% FiO2. 04/14: Patient remains intubated and sedated. Chest CT shows bilateral lower lobe pneumonia with bilateral effusions. 04/15: He remains sedated and intubated. Currently saturating well on 45% FiO2. Will do a weaning trial today. 04/16: Patient remains sedated. Patient's sister disclosed today that he might have overdosed on a whole bottle of Vyvanse as her daughter's entire bottle of Vyvanse was found empty and she says that patient has had a prior history of overdosing on pills. He is saturating at 92 to 92% on 45% FiO2. He continues to have copious, thick yellowish secretions. There is a question if the ET tube was coiled as it remained away above the neela despite adjustment and pushing down by several centimeters based on location on chest x-ray. Attempted to replace tube with a bougie but was unsuccessful. ET tube was taken out and was replaced successfully. 04/17: No acute event overnight. Patient remains sedated and intubated. Reviewed chest x-ray, there is slight improvement from yesterday. He does continue to have thick, yellowish secretions on the ET. Now able to come down on the FiO2 from 45% to 35%. 04/18/2019-patient still under mechanical ventilation under sedation. Sedation was briefly turned off this morning and the patient is still not opening his eyes. Tracheal aspirate cultures came back positive for staph aureus. To add vancomycin to the present antibiotic therapy. Presently on 35% FiO2. Reason For Visit: ACUTE MULTIPLE DRUG OVERDOSE Physical Exam Vital Signs: Temp Pulse Resp BP Pulse Ox 100.4 F 116 H 18 158/100 H 94 04/18/19 14:00 04/18/19 12:00 04/18/19 14:00 04/18/19 13:39 04/18/19 14:00 Intake & Output 04/17/19 04/18/19 04/19/19 06:59 06:59 06:59 Intake Total 983 1326 589 Output Total 2715 1545 510 Balance -1732 -219 79 Weight 83.5 kg 79.4 kg General appearance: PRESENT: no acute distress, thin, other - Patient is under mechanical ventilation under sedation with propofol and Versed. Head exam: PRESENT: atraumatic Eye exam: PRESENT: PERRLA Mouth exam: PRESENT: moist, tongue midline Teeth exam: PRESENT: poor dentation Neck exam: ABSENT: carotid bruit, JVD, lymphadenopathy, thyromegaly Respiratory exam: PRESENT: decreased breath sounds Cardiovascular exam: PRESENT: tachycardia GI/Abdominal exam: PRESENT: normal bowel sounds, soft. ABSENT: distended, guarding, mass, organolmegaly, rebound, tenderness Rectal exam: PRESENT: deferred Gentrourinary exam: PRESENT: indwelling catheter Neurological exam: PRESENT: other - Patient is under sedation unable to do neuro examination. But the patient is spontaneously moving all the extremities. Psychiatric exam: PRESENT: agitated Results Laboratory Results: 04/18/19 03:59 04/18/19 03:59 04/18/19 04/18/19 04/18/19 03:59 03:59 04:10 WBC 9.8 RBC 4.02 L Hgb 12.5 L Hct 36.7 L MCV 91 MCH 31.1 MCHC 34.0 RDW 13.1 Plt Count 451 H Seg Neutrophils % 58.5 Lymphocytes % 19.1 Monocytes % 11.0 Eosinophils % 9.8 H Basophils % 1.6 Absolute Neutrophils 5.7 Absolute Lymphocytes 1.9 Absolute Monocytes 1.1 Absolute Eosinophils 1.0 H Absolute Basophils 0.2 Carbonic Acid 1.76 H HCO3/H2CO3 Ratio 22:1 ABG pH 7.44 ABG pCO2 58.5 H ABG pO2 94.4 ABG HCO3 39.1 H ABG O2 Saturation 97.3 ABG Base Excess 12.3 FiO2 35% Sodium 144.6 Potassium 3.3 L Chloride 101 Carbon Dioxide 33 H Anion Gap 11 BUN 28 H Creatinine 0.68 Est GFR ( Amer) > 60 Est GFR (Non-Af Amer) > 60 Glucose 128 H Calcium 9.5 Total Bilirubin 0.4 AST 36 ALT 35 Alkaline Phosphatase 70 Total Protein 6.6 Albumin 3.5 04/16/19 20:10 Tracheal Aspirate Gram Stain - Final 04/16/19 20:10 Tracheal Aspirate Sputum Culture - Final Staphylococcus Aureus Normal Brionna Absent 04/11/19 04/11/19 04/11/19 06:33 06:33 11:56 Creatine Kinase 187 H 146 CK-MB (CK-2) 2.47 Troponin I < 0.012 04/11/19 04/11/19 04/11/19 11:56 17:43 17:43 Creatine Kinase 116 CK-MB (CK-2) 1.86 1.37 Troponin I < 0.012 < 0.012 Impressions: Head CT 04/10/19 22:39 IMPRESSION: No acute intracranial findings. Chest CT 04/14/19 00:00 IMPRESSION: Pleural effusions. Airspace disease in each lower lobe, atelec tasis versus pneumonia. Chest X-Ray 04/17/19 06:00 IMPRESSION: No significant change. Assessment and Plan - Diagnosis (1) Acute respiratory failure with hypoxia Is this a current diagnosis for this admission?: Yes Plan: 04/13: Currently intubated and sedated. Patient became very tachycardic and slightly tachypneic when weaning off sedation was attempted. 04/14: Patient remains intubated and sedated. Chest CT shows bilateral lower lobe pneumonia with bilateral effusions. 04/15: He remains sedated and intubated. Currently saturating well on 45% FiO2. Will do a weaning trial today. 04/16: Patient remains sedated. Patient's sister disclosed today that he might have overdosed on a whole bottle of Vyvanse as her daughter's entire bottle of Vyvanse was found empty and she says that patient has had a prior history of overdosing on pills. He is saturating at 92 to 92% on 45% FiO2. He continues to have copious, thick yellowish secretions. There is a question if the ET tube was coiled as it remained away above the neela despite adjustment and pushing down by several centimeters based on location on chest x-ray. Attempted to replace ET tube with a bougie but was unsuccessful. ET tube was taken out and was replaced successfully. 04/18/2019-patient's remains sedated under mechanical ventilation. Sedation was briefly turned off this morning and the patient is not spontaneously opening the eyes. Plan to keep him under mechanical ventilation until tomorrow try to wean him off from there. Tracheal aspirate culture came back positive for staph aureus. (2) Toxic encephalopathy Is this a current diagnosis for this admission?: Yes Plan: Secondary to substance abuse. UDS was the positive for amphetamines. There was reported heroine and syringes close to patient when he was found unresponsive. 03/16: Possible Vyvanse overdose as mentioned. 04/17/2019-patient is admitted with substance abuse urine drug screen is positive for amphetamines. Mental status most likely secondary to polysubstance abuse. Repeat CT scan was requested for this morning. Initial CT scan is negative for acute pathology. (3) Suicidal ideation Is this a current diagnosis for this admission?: Yes Plan: He will be reevaluated by psych when he gets extubated. Family did say that he had suicidal ideations at home. He may need possible inpatient psych placement. 04/18/2019-patient was admitted for suicidal ideation presently intubated once he is extubated psych will reevaluate him. Patient may need inpatient psych pl acement. (4) Pneumonia Is this a current diagnosis for this admission?: Yes Plan: Sputum culture grew haemophilus influenzae and MSSA. Discontinue vancomycin and Zosyn. Switched to Rocephin. 04/16: Patient continues to have copious, very thick, yellowish secretions coming from the ET despite being on Rocephin. We will switch patient to Zosyn. Repeat sputum culture. 04/18/2019-repeat sputum cultures came back positive for MSSA. Presently on IV Zosyn and IV vancomycin was initiated today. Chest x-ray did not suggestive of any pneumonia. Patient may have aspiration pneumonia because of drug overdose. MSSA is the causative organism. - Time Time Spent with patient: 25-34 minutes Medications reviewed and adjusted accordingly: Yes Anticipated discharge: Home
--- NOTE | 2019-04-18 17:57 | RADIOLOGY REPORT (SQ) ---
EXAM DESCRIPTION: CT HEAD WITHOUT COMPLETED DATE/TIME: 04/18/2019 5:37 pm REASON FOR STUDY: altered mental status COMPARISON: 04/10/2019 TECHNIQUE: Axial images acquired through the brain without intravenous contrast. Images reviewed wi th bone, brain and subdural windows. Images stored on PACS. All CT scanners at this facility use dose modulation, iterative reconstruction, and/or weight based d osing when appropriate to reduce radiation dose to as low as reasonably achievable (ALARA). [facility]: Dose Right [facility]: CareDose [facility]: Dose Right [facility]: Teradose 4D [facility]: Smart Babytree RADIATION DOSE: CT Rad equipment meets quality standard of care and radiation dose reduction techniq ues were employed. CTDIvol: 53.2 mGy. DLP: 1044 mGy-cm. mGy. LIMITATIONS: None. FINDINGS: VENTRICLES: Normal size and contour. CEREBRUM: No masses. No hemorrhage. No midline shift. No evidence for acute infarction. Normal gra y/white matter differentiation. No areas of low density in the white matter. CEREBELLUM: No masses. No hemorrhage. No alteration of density. No evidence for acute infarction. EXTRAAXIAL SPACES: No fluid collections. No masses. ORBITS AND GLOBE: No intra- or extraconal masses. Normal contour of globe without masses. CALVARIUM: No fracture. PARANASAL SINUSES: Increasing sphenoid and ethmoid sinus fluid. SOFT TISSUES: No mass or hematoma. OTHER: Nasogastric catheter and endotracheal tube are noted. IMPRESSION: No acute intracranial findings. Increasing sphenoid and ethmoid sinus fluid. EVIDENCE OF ACUTE STROKE: NO. COMMENT: Quality ID # [id number]: Final reports with documentation of one or more dose reduction techniques (e.g., Automated exposure control, adjustment of the mA and/or kV according to patient size, use of iterative reconstruction technique) TECHNICAL DOCUMENTATION: JOB ID: [id number] [place]-72 2010 [employer]- All Rights Reserved Reading location - IP/workstation name: [email or web address]
[2019-04-18] MEDS ORDERED: VANCOMYCIN HCL INJ 1000 MG VIAL IV SCH (18:00)
[2019-04-18] MEDS: CEFTRIAXONE SODIUM 1,000 MG in DEXTROSE 5%-WATER 50 ML IV SCH (18:27)
[2019-04-18] MEDS: LORAZEPAM INJ 2 MG/1 ML VIAL IV PRN (19:36)
--- NOTE | 2019-04-18 23:40 | RADIOLOGY REPORT (SQ) ---
EXAM DESCRIPTION: XR CHEST 1 VIEW COMPLETED DATE/TME: 04/18/2019 00:00 CLINICAL HISTORY: 48 years, Male, ETT tube placement COMPARISON: 04/17/2019 chest NUMBER OF VIEWS: 1 TECHNIQUE: Portable chest LIMITATIONS: None. FINDINGS: The heart size is normal. Endotracheal tube tip is 4.8 cm above the neela. Enteric tube in place. . No pneumothorax. Subsegmental atelectasis left lung base. Patchy airspace opacity right lung base. Underlying hyperinflation.. IMPRESSION: Endotracheal and enteric tubes are in place. Persistent airspace opacity right lung base. Underlying hyperinflation copyright 2010 [employer]- All Rights Reserved
[2019-04-19] MEDS: ACETYLCYSTEINE 10% NEB 400 MG/4 ML VIAL NEB SCH ×3 (00:31→16:08)
[2019-04-19] MEDS: IPRATROPIUM/ALBUTEROL 0.5-2.5 MG/3 ML AMPUL NEB SCH ×3 (00:31→16:08)
[2019-04-19] MEDS: PROPOFOL 1,000 MG/100 ML INFUS..BTL IV PRN ×6 (00:47→21:09)
[2019-04-19] MEDS: LORAZEPAM INJ 2 MG/1 ML VIAL IV PRN ×4 (00:48→23:51)
[2019-04-19 04:07] LABS: ABSOLUTE BASOPHILS # (AUTO) 0.2 10^3/uL (0.0-0.2); ABSOLUTE LYMPHOCYTES (AUTO) 1.7 10^3/uL (0.5-4.7); ABSOLUTE NEUT (AUTO) 6.2 10^3/uL (1.7-8.2); BASOPHILS % (AUTO) 1.7 % (0-2); EOSINOPHILS % (AUTO) 9.7 % (0-6); HEMATOCRIT 35.4 % (37.9-51.0); LYMPHOCYTES % (AUTO) 16.6 % (13-45); MEAN CORPUSCULAR HEMOGLOBIN 30.7 pg (27.0-33.4); MEAN CORPUSCULAR HGB CONC 33.8 g/dL (32.0-36.0); MEAN CORPUSCULAR VOLUME 91 fl (80-97); MONOCYTES % (AUTO) 10.4 % (3-13); PLATELET COUNT 438 10^3/uL (150-450); SEGMENTED NEUTROPHILS % (AUTO) 61.6 % (42-78); TOTAL CELLS COUNTED % (AUTO) 100 %
[2019-04-19 04:23] LABS: ALANINE AMINOTRANSFERASE 50 U/L (21-72); ALBUMIN 3.5 g/dL (3.5-5.0); ALKALINE PHOSPHATASE 71 U/L (38-126); ANION GAP 8 (5-19); ASPARTATE AMINO TRANSFERASE 47 U/L (17-59); BILIRUBIN,DIRECT 0.3 mg/dL (0.0-0.4); BILIRUBIN,TOTAL 0.4 mg/dL (0.2-1.3); BLOOD UREA NITROGEN 31 mg/dL (7-20); CALCIUM 9.7 mg/dL (8.4-10.2); CARBON DIOXIDE 35 mmol/L (22-30); CHLORIDE 102 mmol/L (98-107); GLUCOSE 115 mg/dL (75-110); POTASSIUM 3.4 mmol/L (3.6-5.0); SODIUM 145.2 mmol/L (137-145); TOTAL PROTEIN 6.6 g/dL (6.3-8.2)
[2019-04-19 04:58] LABS: ARTERIAL BLOOD BASE EXCESS 9.7 mmol/L; ARTERIAL BLOOD H2CO3 1.45 mmol/L (1.05-1.35); ARTERIAL BLOOD HCO3 34.7 mmol/L (20-24); ARTERIAL BLOOD O2 SATURATION 96.6 % (94-98); ARTERIAL BLOOD PCO2 48.2 mmHg (35-45); ARTERIAL BLOOD PH 7.48 (7.35-7.45); ARTERIAL BLOOD PO2 82.2 mmHg (80-100); ARTERIAL BLOOD TOTAL CO2 36.2 mmol/L (23-27)
[2019-04-19 05:00] LABS: ARTERIAL BLOOD FIO2 35%
[2019-04-19] MEDS: HEPARIN SOD (PORCINE) 5,000 UNIT/ML 1 ML SYRINGE SUBCUT SCH ×3 (05:08→21:09)
[2019-04-19] MEDS: PIPERACILLIN SODIUM/TAZOBACTAM 3.375 GM in NORMAL SALINE 100 ML IV SCH ×4 (05:08→23:50)
[2019-04-19] MEDS: MIDAZOLAM HCL 50 MG/100 ML RTUINJ IV PRN ×2 (05:09→15:13)
--- NOTE | 2019-04-19 08:41 | RADIOLOGY REPORT (SQ) ---
EXAM DESCRIPTION: CHEST SINGLE VIEW COMPLETED DATE/TIME: 04/19/2019 6:02 am REASON FOR STUDY: resp failure COMPARISON: 04/18/2019 NUMBER OF VIEWS: One view. TECHNIQUE: Single frontal radiographic image of the chest acquired. LIMITATIONS: None. FINDINGS: LUNGS AND PLEURA: Right basilar airspace disease not significantly changed. Improved aera tion in the left lung. No pneumothorax. MEDIASTINUM AND HEART: Stable heart size and mediastinal structures. SUPPORT DEVICES: Appropriate location without change. BONY STRUCTURES: No acute findings. HARDWARE: None. OTHER: No other significant finding. IMPRESSION: Improved aeration left lung. No pneumothorax. Reading location - IP/workstation name: [email or web address]
[2019-04-19] MEDS: FUROSEMIDE INJ/PF 20 MG/2 ML SDV IV SCH ×2 (09:56→21:09)
[2019-04-19] MEDS ORDERED: POTASSI CL 20 MEQ/50 ML RIDER 20 MEQ/50 ML RTUPB IV ONE (10:28)
[2019-04-19] MEDS: POTASSI CL 20 MEQ/50 ML RIDER 20 MEQ/50 ML RTUPB IV SCH ×2 (10:30→11:41)
--- NOTE | 2019-04-19 10:53 | PDOC PROGRESS REPORT ---
Subjective Progress Note for:: 04/19/19 Subjective:: 48 year old male who presented to the emergency room via EMS having been found unresponsive with heroin and syringes were present on the scene. He was subsequently intubated. He was noted to have a positive urine drug screen for benzodiazepines and amphetamines. 04/12: Patient is intubated and sedated. Per RN, patient had significantly thick yellowish secretions coming from the ET. Patient also became very tachycardic when attempted to be weaned off sedation. 04/13: He remains intubated and sedated. He did develop fever last night and this morning. Minimal secretions on the ET today. However patient did have transient desaturation. Currently saturating at 92-93% on 40% FiO2. 04/14: Patient remains intubated and sedated. Chest CT shows bilateral lower lobe pneumonia with bilateral effusions. 04/15: He remains sedated and intubated. Currently saturating well on 45% FiO2. Will do a weaning trial today. 04/16: Patient remains sedated. Patient's sister disclosed today that he might have overdosed on a whole bottle of Vyvanse as her daughter's entire bottle of Vyvanse was found empty and she says that patient has had a prior history of overdosing on pills. He is saturating at 92 to 92% on 45% FiO2. He continues to have copious, thick yellowish secretions. There is a question if the ET tube was coiled as it remained away above the neela despite adjustment and pushing down by several centimeters based on location on chest x-ray. Attempted to replace tube with a bougie but was unsuccessful. ET tube was taken out and was replaced successfully. 04/17: No acute event overnight. Patient remains sedated and intubated. Reviewed chest x-ray, there is slight improvement from yesterday. He does continue to have thick, yellowish secretions on the ET. Now able to come down on the FiO2 from 45% to 35%. 04/18/2019-patient still under mechanical ventilation under sedation. Sedation was briefly turned off this morning and the patient is still not opening his eyes. Tracheal aspirate cultures came back positive for staph aureus. To add vancomycin to the present antibiotic therapy. Presently on 35% FiO2. 04/19/2019-no acute events in the last 24 hours. Afebrile. Still under mechanical ventilation and on propofol 40 mcg/kg/min. Tracheal aspirate showing staph aureus presently on Zosyn and IV Rocephin. CT head was done yesterday did not show any acute changes. His potassium is 3.4 today which is supplemented. Reason For Visit: ACUTE MULTIPLE DRUG OVERDOSE Physical Exam Vital Signs: Temp Pulse Resp BP Pulse Ox 99.9 F 119 H 16 150/75 H 96 04/19/19 10:00 04/19/19 10:00 04/19/19 10:00 04/19/19 10:00 04/19/19 10:00 Intake & Output 04/18/19 04/19/19 04/20/19 06:59 06:59 06:59 Intake Total 1326 2142 976 Output Total 1545 1255 525 Balance -219 887 451 Weight 79.4 kg 80 kg General appearance: PRESENT: no acute distress, other - Patient was still under mechanical ventilation and sedation. Head exam: PRESENT: atraumatic Eye exam: PRESENT: PERRLA Mouth exam: PRESENT: moist, tongue midline Teeth exam: PRESENT: poor dentation Neck exam: ABSENT: carotid bruit, JVD, lymphadenopathy, thyromegaly Respiratory exam: PRESENT: decreased breath sounds Cardiovascular exam: PRESENT: tachycardia GI/Abdominal exam: PRESENT: other - NG tube in place receiving tube feedings b owel sounds are present. Rectal exam: PRESENT: deferred Extremities exam: PRESENT: full ROM. ABSENT: calf tenderness, clubbing, pedal edema Neurological exam: PRESENT: alert, awake, oriented to person, oriented to place, oriented to time, oriented to situation, CN II-XII grossly intact. ABSENT: motor sensory deficit Results Laboratory Results: 04/19/19 03:19 04/19/19 03:19 04/19/19 04/19/19 04/19/19 03:19 03:19 04:45 WBC 10.0 RBC 3.90 L Hgb 12.0 L Hct 35.4 L MCV 91 MCH 30.7 MCHC 33.8 RDW 13.0 Plt Count 438 Seg Neutrophils % 61.6 Lymphocytes % 16.6 Monocytes % 10.4 Eosinophils % 9.7 H Basophils % 1.7 Absolute Neutrophils 6.2 Absolute Lymphocytes 1.7 Absolute Monocytes 1.0 Absolute Eosinophils 1.0 H Absolute Basophils 0.2 Carbonic Acid 1.45 H HCO3/H2CO3 Ratio 23:1 ABG pH 7.48 H ABG pCO2 48.2 H ABG pO2 82.2 ABG HCO3 34.7 H ABG O2 Saturation 96.6 ABG Base Excess 9.7 FiO2 35% Sodium 145.2 H Potassium 3.4 L Chloride 102 Carbon Dioxide 35 H Anion Gap 8 BUN 31 H Creatinine 0.71 Est GFR ( Amer) > 60 Est GFR (Non-Af Amer) > 60 Glucose 115 H Calcium 9.7 Magnesium 2.3 Total Bilirubin 0.4 AST 47 ALT 50 Alkaline Phosphatase 71 Total Protein 6.6 Albumin 3.5 04/13/19 17:33 Blood Blood Culture - Final NO GROWTH IN 5 DAYS 04/13/19 15:38 Blood Blood Culture - Final NO GROWTH IN 5 DAYS 04/16/19 20:10 Tracheal Aspirate Gram Stain - Final 04/16/19 20:10 Tracheal Aspirate Sputum Culture - Final Staphylococcus Aureus Normal Brionna Absent 04/11/19 04/11/19 04/11/19 06:33 06:33 11:56 Creatine Kinase 187 H 146 CK-MB (CK-2) 2.47 Troponin I < 0.012 04/11/19 04/11/19 04/11/19 11:56 17:43 17:43 Creatine Kinase 116 CK-MB (CK-2) 1.86 1.37 Troponin I < 0.012 < 0.012 Impressions: Chest CT 04/14/19 00:00 IMPRESSION: Pleural effusions. Airspace disease in each lower lobe, atelectasis versus pneumonia. Head CT 04/18/19 00:00 IMPRESSION: No acute intracranial findings. Increasing sphenoid and ethmoid sinus fluid. EVIDENCE OF ACUTE STROKE: NO. Chest X-Ray 04/19/19 06:00 IMPRESSION: Improved aeration left lung. No pneumothorax. Assessment and Plan - Diagnosis (1) Acute respiratory failure with hypoxia Is this a current diagnosis for this admission?: Yes Plan: 04/13: Currently intubated and sedated. Patient became very tachycardic and slightly tachypneic when weaning off sedation was attempted. 04/14: Patient remains intubated and sedated. Chest CT shows bilateral lower lobe pneumonia with bilateral effusions. 04/15: He remains sedated and intubated. Currently saturating well on 45% FiO2. Will do a weaning trial today. 04/16: Patient remains sedated. Patient's sister disclosed today that he might have overdosed on a whole bottle of Vyvanse as her daughter's entire bottle of Vyvanse was found empty and she says that patient has had a prior history of overdosing on pills. He is saturating at 92 to 92% on 45% FiO2. He continues to have copious, thick yellowish secretions. There is a question if the ET tube was coiled as it remained away above the neela despite adjustment and pushing down by several centimeters based on location on chest x-ray. Attempted to replace ET tube with a bougie but was unsuccessful. ET tube was taken out and was replaced successfully. 04/18/2019-patient's remains sedated under mechanical ventilation. Sedation was briefly turned off this morning and the patient is not spontaneously opening the eyes. Plan to keep him under mechanical ventilation until tomorrow try to wean him off from there. Tracheal aspirate culture came back positive for staph aureus. 04/19/2019-patient is on Versed 40 mcg/kg/min and after mechanical ventilation we are going to continue to keep him sedated and ventilated today and gradually try to wean him off from sedations and probably try to extubate him on Wednesday. Acute respiratory failure with hypoxia may be secondary to drug overdose and the sputum culture came back positive for MSSA. (2) Toxic encephalopathy Is this a current diagnosis for this admission?: Yes Plan: Secondary to substance abuse. UDS was the positive for amphetamines. There was reported heroine and syringes close to patient when he was found unresponsive. 03/16: Possible Vyvanse overdose as mentioned. 04/17/2019-patient is admitted with substance abuse urine drug screen is positive for amphetamines. Mental status most likely secondary to polysubstance abuse. Repeat CT scan was requested for this morning. Initial CT scan is negative for acute pathology. 04/19/2019-urine drug screen at the time of admission came back positive for amphetamines. Altered mental status/toxic encephalopathy most likely secondary to drug use. Repeat CT head done yesterday is negative for acute changes. He is moving upper and lower extremities without any problem he is still not responding to the commands and not spontaneously opening the eyes. (3) Suicidal ideation Is this a current diagnosis for this admission?: Yes (4) Pneumonia Is this a current diagnosis for this admission?: Yes Plan: Sputum culture grew haemophilus influenzae and MSSA. Discontinue vancomycin and Zosyn. Switched to Rocephin. 04/16: Patient continues to have copious, very thick, yellowish secretions coming from the ET despite being on Rocephin. We will switch patient to Zosyn. Repeat sputum culture. 04/18/2019-repeat sputum cultures came back positive for MSSA. Presently on IV Zosyn and IV vancomycin was initiated today. Chest x-ray did not suggestive of any pneumonia. Patient may have aspiration pneumonia because of drug overdose. MSSA is the causative organism. 04/19/2019-sputum cultures positive for MSSA. Presently on IV Zosyn and IV Rocephin T-max is 99.5 plan is to continue the present management. (5) Hypokalemia Is this a current diagnosis for this admission?: Yes Plan: 04/19/2019-serum potassium is 3.4 which is going to be supplemented today. - Time Time Spent with patient: 25-34 minutes Medications reviewed and adjusted accordingly: Yes Anticipated discharge: Home
[2019-04-19] MEDS: HYDRALAZINE HCL INJ/PF 20 MG/1 ML SDV IV PRN ×2 (11:41→22:21)
[2019-04-19] MEDS: METOPROLOL TARTRATE PF/INJ 5 MG/5 ML SDV IV PRN ×2 (12:08→16:10)
[2019-04-19] MEDS: FENTANYL CITRATE INJ/PF 100 MCG/2 ML AMPUL IV PRN ×3 (12:08→22:36)
[2019-04-19] MEDS ORDERED: DEXTROSE 40% GEL 15 GM TUBE PO PRN ×2 (15:04)
[2019-04-19] MEDS ORDERED: DEXTROSE 50%-WATER 25 GM/50 ML DISP.SYRIN IV PRN ×2 (15:04)
[2019-04-19] MEDS ORDERED: GLUCAGON,HUMAN RECOMB 1 MG INJ IM PRN (15:04)
[2019-04-19] MEDS: INSULIN REG, HUMAN 100 UNIT/ML 3 ML VIAL (PYX) SUBCUT SCH (17:12)
[2019-04-19] MEDS: CEFTRIAXONE SODIUM 1,000 MG in DEXTROSE 5%-WATER 50 ML IV SCH (17:12)
[2019-04-19] MEDS: ACETAMINOPHEN 650 MG SUPP.RECT PR PRN (20:14)
[2019-04-20] MEDS: IPRATROPIUM/ALBUTEROL 0.5-2.5 MG/3 ML AMPUL NEB SCH ×3 (00:05→15:38)
[2019-04-20] MEDS: ACETYLCYSTEINE 10% NEB 400 MG/4 ML VIAL NEB SCH ×3 (00:05→15:38)
[2019-04-20] MEDS: INSULIN REG, HUMAN 100 UNIT/ML 3 ML VIAL (PYX) SUBCUT SCH ×4 (00:22→17:27)
[2019-04-20] MEDS: PROPOFOL 1,000 MG/100 ML INFUS..BTL IV PRN ×5 (00:31→19:39)
[2019-04-20] MEDS: METOPROLOL TARTRATE PF/INJ 5 MG/5 ML SDV IV PRN ×2 (00:31→11:29)
[2019-04-20] MEDS: FENTANYL CITRATE INJ/PF 100 MCG/2 ML AMPUL IV PRN ×5 (02:37→22:06)
[2019-04-20 04:13] LABS: ABSOLUTE BASOPHILS # (AUTO) 0.2 10^3/uL (0.0-0.2); ABSOLUTE EOSINOPHILS # (AUTO) 0.8 10^3/uL (0.0-0.6); ABSOLUTE LYMPHOCYTES (AUTO) 2.3 10^3/uL (0.5-4.7); ABSOLUTE NEUT (AUTO) 5.4 10^3/uL (1.7-8.2); BASOPHILS % (AUTO) 2.4 % (0-2); EOSINOPHILS % (AUTO) 8.5 % (0-6); HEMATOCRIT 37.2 % (37.9-51.0); HEMOGLOBIN 12.6 g/dL (13.5-17.0); LYMPHOCYTES % (AUTO) 23.9 % (13-45); MEAN CORPUSCULAR HEMOGLOBIN 30.8 pg (27.0-33.4); MEAN CORPUSCULAR HGB CONC 33.9 g/dL (32.0-36.0); MEAN CORPUSCULAR VOLUME 91 fl (80-97); MONOCYTES % (AUTO) 9.8 % (3-13); PLATELET COUNT 491 10^3/uL (150-450); RED BLOOD COUNT 4.09 10^6/uL (4.35-5.55); SEGMENTED NEUTROPHILS % (AUTO) 55.4 % (42-78); TOTAL CELLS COUNTED % (AUTO) 100 %; WHITE BLOOD COUNT 9.7 10^3/uL (4.0-10.5)
[2019-04-20 04:43] LABS: ALANINE AMINOTRANSFERASE 55 U/L (21-72); ALBUMIN 3.8 g/dL (3.5-5.0); ALKALINE PHOSPHATASE 67 U/L (38-126); ANION GAP 11 (5-19); ASPARTATE AMINO TRANSFERASE 44 U/L (17-59); BILIRUBIN,DIRECT 0.3 mg/dL (0.0-0.4); BILIRUBIN,TOTAL 0.4 mg/dL (0.2-1.3); BLOOD UREA NITROGEN 24 mg/dL (7-20); CALCIUM 9.9 mg/dL (8.4-10.2); CARBON DIOXIDE 32 mmol/L (22-30); CHLORIDE 104 mmol/L (98-107); GLUCOSE 120 mg/dL (75-110); POTASSIUM 3.3 mmol/L (3.6-5.0); SODIUM 146.7 mmol/L (137-145); TOTAL PROTEIN 7.2 g/dL (6.3-8.2)
[2019-04-20 04:47] LABS: ARTERIAL BLOOD BASE EXCESS 8.6 mmol/L; ARTERIAL BLOOD H2CO3 1.43 mmol/L (1.05-1.35); ARTERIAL BLOOD HCO3 33.6 mmol/L (20-24); ARTERIAL BLOOD O2 SATURATION 97.9 % (94-98); ARTERIAL BLOOD PCO2 47.5 mmHg (35-45); ARTERIAL BLOOD PH 7.47 (7.35-7.45)
[2019-04-20 04:49] LABS: ARTERIAL BLOOD FIO2 35%
[2019-04-20] MEDS: PIPERACILLIN SODIUM/TAZOBACTAM 3.375 GM in NORMAL SALINE 100 ML IV SCH ×4 (05:18→23:51)
[2019-04-20] MEDS: HEPARIN SOD (PORCINE) 5,000 UNIT/ML 1 ML SYRINGE SUBCUT SCH ×3 (05:18→21:14)
[2019-04-20] MEDS: MIDAZOLAM HCL 50 MG/100 ML RTUINJ IV PRN (07:33)
[2019-04-20] MEDS: POTASSI CL 20 MEQ/50 ML RIDER 20 MEQ/50 ML RTUPB IV SCH ×2 (08:37→09:57)
--- NOTE | 2019-04-20 08:42 | RADIOLOGY REPORT (SQ) ---
EXAM DESCRIPTION: CHEST SINGLE VIEW COMPLETED DATE/TIME: 04/20/2019 6:24 am REASON FOR STUDY: resp failure COMPARISON: 04/19/2019 EXAM PARAMETERS: NUMBER OF VIEWS: One view. TECHNIQUE: Single frontal radiographic view of the chest acquired. RADIATION DOSE: NA LIMITATIONS: None. FINDINGS: Stable AP portable examination. No new airspace opacity. Unchanged support apparatus inc luding endotracheal tube. IMPRESSION: Stable AP portable examination. No new airspace opacity. Unchanged support apparatus in cluding endotracheal tube. TECHNICAL DOCUMENTATION: JOB ID: [id number] [employer]- All Rights Reserved Reading location - IP/workstation name: [email or web address]
[2019-04-20] MEDS: FUROSEMIDE INJ/PF 20 MG/2 ML SDV IV SCH ×2 (09:57→21:14)
[2019-04-20] MEDS: LORAZEPAM INJ 2 MG/1 ML VIAL IV PRN ×2 (09:57→19:56)
--- NOTE | 2019-04-20 10:05 | PDOC PROGRESS REPORT ---
Subjective Progress Note for:: 04/20/19 Subjective:: 48 year old male who presented to the emergency room via EMS having been found unresponsive with heroin and syringes were present on the scene. He was subsequently intubated. He was noted to have a positive urine drug screen for benzodiazepines and amphetamines. 04/12: Patient is intubated and sedated. Per RN, patient had significantly thick yellowish secretions coming from the ET. Patient also became very tachycardic when attempted to be weaned off sedation. 04/13: He remains intubated and sedated. He did develop fever last night and this morning. Minimal secretions on the ET today. However patient did have transient desaturation. Currently saturating at 92-93% on 40% FiO2. 04/14: Patient remains intubated and sedated. Chest CT shows bilateral lower lobe pneumonia with bilateral effusions. 04/15: He remains sedated and intubated. Currently saturating well on 45% FiO2. Will do a weaning trial today. 04/16: Patient remains sedated. Patient's sister disclosed today that he might have overdosed on a whole bottle of Vyvanse as her daughter's entire bottle of Vyvanse was found empty and she says that patient has had a prior history of overdosing on pills. He is saturating at 92 to 92% on 45% FiO2. He continues to have copious, thick yellowish secretions. There is a question if the ET tube was coiled as it remained away above the neela despite adjustment and pushing down by several centimeters based on location on chest x-ray. Attempted to replace tube with a bougie but was unsuccessful. ET tube was taken out and was replaced successfully. 04/17: No acute event overnight. Patient remains sedated and intubated. Reviewed chest x-ray, there is slight improvement from yesterday. He does continue to have thick, yellowish secretions on the ET. Now able to come down on the FiO2 from 45% to 35%. 04/18/2019-patient still under mechanical ventilation under sedation. Sedation was briefly turned off this morning and the patient is still not opening his eyes. Tracheal aspirate cultures came back positive for staph aureus. To add vancomycin to the present antibiotic therapy. Presently on 35% FiO2. 04/19/2019-no acute events in the last 24 hours. Afebrile. Still under mechanical ventilation and on propofol 40 mcg/kg/min. Tracheal aspirate showing staph aureus presently on Zosyn and IV Rocephin. CT head was done yesterday did not show any acute changes. His potassium is 3.4 today which is supplemented. 04/20/2019-no acute events in the last 24 hours. The patient is afebrile. Still on propofol and on mechanical ventilation. Versed was discontinued this morning. Patient is started spontaneously opening his eyes. Patient is also on as needed fentanyl. The tracheal aspirate and sputum cultures came back positi ve for MSSA and Haemophilus influenza. T-max is 98.8. Today is the ninth day of intubation. plan Is to gradually wean him off from the ventilator. Reason For Visit: ACUTE MULTIPLE DRUG OVERDOSE Physical Exam Vital Signs: Temp Pulse Resp BP Pulse Ox 98.8 F 101 H 12 133/76 H 96 04/20/19 06:00 04/20/19 08:27 04/20/19 07:54 04/20/19 04:39 04/20/19 07:54 Intake & Output 04/19/19 04/20/19 04/21/19 06:59 06:59 06:59 Intake Total 2142 2382 105 Output Total 1255 2470 125 Balance 887 -88 -20 Weight 80 kg 77.8 kg General appearance: PRESENT: mild distress Head exam: PRESENT: atraumatic Eye exam: PRESENT: PERRLA Mouth exam: PRESENT: moist, tongue midline Neck exam: ABSENT: carotid bruit, JVD, lymphadenopathy, thyromegaly Respiratory exam: PRESENT: decreased breath sounds Cardiovascular exam: PRESENT: tachycardia GI/Abdominal exam: PRESENT: normal bowel sounds, soft. ABSENT: distended, guarding, mass, organolmegaly, rebound, tenderness Rectal exam: PRESENT: deferred Gentrourinary exam: PRESENT: indwelling catheter Neurological exam: PRESENT: alert, awake, oriented to person, oriented to place, oriented to time, oriented to situation, CN II-XII grossly intact. ABSENT: motor sensory deficit Psychiatric exam: PRESENT: appropriate affect, normal mood. ABSENT: homicidal ideation, suicidal ideation Results Laboratory Results: 04/20/19 04:06 04/20/19 04:06 04/19/19 04/20/19 04/20/19 17:02 04:06 04:06 WBC 9.7 RBC 4.09 L Hgb 12.6 L Hct 37.2 L MCV 91 MCH 30.8 MCHC 33.9 RDW 13.0 Plt Count 491 H Seg Neutrophils % 55.4 Lymphocytes % 23.9 Monocytes % 9.8 Eosinophils % 8.5 H Basophils % 2.4 H Absolute Neutrophils 5.4 Absolute Lymphocytes 2.3 Absolute Monocytes 1.0 Absolute Eosinophils 0.8 H Absolute Basophils 0.2 Carbonic Acid HCO3/H2CO3 Ratio ABG pH ABG pCO2 ABG pO2 ABG HCO3 ABG O2 Saturation ABG Base Excess FiO2 Sodium 146.7 H Potassium 3.5 L 3.3 L Chloride 104 Carbon Dioxide 32 H Anion Gap 11 BUN 24 H Creatinine 0.72 Est GFR ( Amer) > 60 Est GFR (Non-Af Amer) > 60 Glucose 120 H Calcium 9.9 Magnesium 2.2 Total Bilirubin 0.4 AST 44 ALT 55 Alkaline Phosphatase 67 Total Protein 7.2 Albumin 3.8 04/20/19 04:17 WBC RBC Hgb Hct MCV MCH MCHC RDW Plt Count Seg Neutrophils % Lymphocytes % Monocytes % Eosinophils % Basophils % Absolute Neutrophils Absolute Lymphocytes Absolute Monocytes Absolute Eosinophils Absolute Basophils Carbonic Acid 1.43 H HCO3/H2CO3 Ratio 23:1 ABG pH 7.47 H ABG pCO2 47.5 H ABG pO2 101.0 H ABG HCO3 33.6 H ABG O2 Saturation 97.9 ABG Base Excess 8.6 FiO2 35% Sodium Potassium Chloride Carbon Dioxide Anion Gap BUN Creatinine Est GFR ( Amer) Est GFR (Non-Af Amer) Glucose Calcium Magnesium Total Bilirubin AST ALT Alkaline Phosphatase Total Protein Albumin 04/11/19 04/11/19 04/11/19 06:33 06:33 11:56 Creatine Kinase 187 H 146 CK-MB (CK-2) 2.47 Troponin I < 0.012 04/11/19 04/11/19 04/11/19 11:56 17:43 17:43 Creatine Kinase 116 CK-MB (CK-2) 1.86 1.37 Troponin I < 0.012 < 0.012 Impressions: Chest CT 04/14/19 00:00 IMPRESSION: Pleural effusions. Airspace disease in each lower lobe, at electasis versus pneumonia. Head CT 04/18/19 00:00 IMPRESSION: No acute intracranial findings. Increasing sphenoid and ethmoid sinus fluid. EVIDENCE OF ACUTE STROKE: NO. Chest X-Ray 04/20/19 06:00 IMPRESSION: Stable AP portable examination. No new airspace opacity. Unchanged support apparatus including endotracheal tube. Assessment and Plan - Diagnosis (1) Acute respiratory failure with hypoxia Is this a current diagnosis for this admission?: Yes Plan: 04/13: Currently intubated and sedated. Patient became very tachycardic and slightly tachypneic when weaning off sedation was attempted. 04/14: Patient remains intubated and sedated. Chest CT shows bilateral lower lobe pneumonia with bilateral effusions. 04/15: He remains sedated and intubated. Currently saturating well on 45% FiO2. Will do a weaning trial today. 04/16: Patient remains sedated. Patient's sister disclosed today that he might have overdosed on a whole bottle of Vyvanse as her daughter's entire bottle of Vyvanse was found empty and she says that patient has had a prior history of overdosing on pills. He is saturating at 92 to 92% on 45% FiO2. He continues to have copious, thick yellowish secretions. There is a question if the ET tube was coiled as it remained away above the neela despite adjustment and pushing down by several centimeters based on location on chest x-ray. Attempted to replace ET tube with a bougie but was unsuccessful. ET tube was taken out and was replaced successfully. 04/18/2019-patient's remains sedated under mechanical ventilation. Sedation was briefly turned off this morning and the patient is not spontaneously opening the eyes. Plan to keep him under mechanical ventilation until tomorrow try to wean him off from there. Tracheal aspirate culture came back positive for staph aureus. 04/19/2019-patient is on Versed 40 mcg/kg/min and after mechanical ventilation we are going to continue to keep him sedated and ventilated today and gradually try to wean him off from sedations and probably try to extubate him on Wednesday. Acute respiratory failure with hypoxia may be secondary to drug overdose and the sputum culture came back positive for MSSA. 04/20/[id number]-gta[age]-old male admitted with drug overdose and acute respiratory failure with hypoxia status post intubation. Is to slowly wean him off from the ventilator. Presently on propofol 40 mcg/kg/min. T-max is 98.8. Tracheal aspirate and Gram stain came back positive for MSSA and H influenza presently on Zosyn and IV Rocephin. (2) Toxic encephalopathy Is this a current diagnosis for this admission?: Yes Plan: Secondary to substance abuse. UDS was the positive for amphetamines. There was reported heroine and syringes close to patient when he was found unresponsive. 03/16: Possible Vyvanse overdose as mentioned. 04/17/2019-patient is admitted with substance abuse urine drug screen is positive for amphetamines. Mental status most likely secondary to polysubstance abuse. Repeat CT scan was requested for this morning. Initial CT scan is negative for acute pathology. 04/19/2019-urine drug screen at the time of admission came back positive for amphetamines. Altered mental status/toxic encephalopathy most likely secondary to drug use. Repeat CT head done yesterday is negative for acute changes. He is moving upper and lower extremities without any problem he is still not responding to the commands and not spontaneously opening the eyes. 04/20/2019-urine drug screen is positive for amphetamines toxic encephalopathy most likely secondary to drug overdose in association with acute respiratory failure with hypoxia requiring intubation. (3) Suicidal ideation Is this a current diagnosis for this admission?: Yes Plan: He will be reevaluated by psych when he gets extubated. Family did say that he had suicidal ideations at home. He may need possible inpatient psych placement. 04/18/2019-patient was admitted for suicidal ideation presently intubated once he is extubated psych will reevaluate him. Patient may need inpatient psych placement. 04/20/2019-once patient is successfully extubated psych team will be contacted for recommendations. (4) Pneumonia Is this a current diagnosis for this admission?: Yes Plan: Sputum culture grew haemophilus influenzae and MSSA. Discontinue vancomycin and Zosyn. Switched to Rocephin. 04/16: Patient continues to have copious, very thick, yellowish secretions coming from the ET despite being on Rocephin. We will switch patient to Zosyn. Repeat sputum culture. 04/18/2019-repeat sputum cultures came back positive for MSSA. Presently on IV Zosyn and IV vancomycin was initiated today. Chest x-ray did not suggestive of any pneumonia. Patient may have aspiration pneumonia because of drug overdose. MSSA is the causative organism. 04/19/2019-sputum cultures positive for MSSA. Presently on IV Zosyn and IV Rocephin T-max is 99.5 plan is to continue the present management. 04/20/2019-sputum cultures and tracheal aspirate came back positive for MSSA and H. influenzae. Presently on Zosyn and IV Rocephin. Plan is to continue the present management T-max is 98.8. (5) Hypokalemia Is this a current diagnosis for this admission?: Yes Plan: 04/19/2019-serum potassium is 3.4 which is going to be supplemented today. 04/20/2019-serum potassium is 3.3 he was given 40 mg of care of this morning probably patient need a daily dose of IV potassium. - Time Time Spent with patient: 35 or more minutes Medications reviewed and adjusted accordingly: Yes Anticipated discharge: Home
--- NOTE | 2019-04-20 15:32 | Progress Note ---
Provider Note Provider Note: ID Telephone Consult Note Asked to review patient's chart by Pharmacy. Pt not seen or examined. Pt is a 48 year old man in the ICU, admitted since 04/11, after being found down unresponsive from drug overdose. He had respiratory failure requiring intubation, and he remains on a ventilator. He has patchy airspace opacities in the lungs on chest x ray bilaterally and fever and is being treated for pneumonia. His tracheal aspirate from 04/12 grew Haemophilus influenzae and MSSA, and Rocephin and vancomycin were started. This was later modified to Zosyn. Repeat tracheal aspirate form 04/16 showed growth of only MSSA. Presently both Rocephin and Zosyn are ordered. Impression/Recommendations - Pt is being treated for VAP. No Pseudomonas grew, so antipseudomonal activity of Zosyn is not needed, and Zosyn should be discontinued. Rocephin will have activity against both the Haemophilus and the MSSA. Today is day 7 of treatment. - If he has MSSA pneumonia and the pneumonia is slow to respond, treatment could be extended for longer than the typical 7 days, but in this case, I would would switch to cefazolin 2 grams q8h IV to narrow the spectrum to target the MSSA. Branden Porter MD [facility] Infectious Diseases pager [phone]
[2019-04-20] MEDS: CEFTRIAXONE SODIUM 1,000 MG in DEXTROSE 5%-WATER 50 ML IV SCH (17:27)
[2019-04-21] MEDS: ACETYLCYSTEINE 10% NEB 400 MG/4 ML VIAL NEB SCH ×3 (00:09→16:23)
[2019-04-21] MEDS: IPRATROPIUM/ALBUTEROL 0.5-2.5 MG/3 ML AMPUL NEB SCH ×3 (00:09→16:23)
[2019-04-21] MEDS: PROPOFOL 1,000 MG/100 ML INFUS..BTL IV PRN ×2 (02:06→06:01)
[2019-04-21] MEDS: FENTANYL CITRATE INJ/PF 100 MCG/2 ML AMPUL IV PRN ×6 (02:07→23:32)
[2019-04-21 04:11] LABS: ABSOLUTE BASOPHILS # (AUTO) 0.3 10^3/uL (0.0-0.2); ABSOLUTE EOSINOPHILS # (AUTO) 0.9 10^3/uL (0.0-0.6); ABSOLUTE MONOCYTES (AUTO) 1.1 10^3/uL (0.1-1.4); ABSOLUTE NEUT (AUTO) 8.6 10^3/uL (1.7-8.2); BASOPHILS % (AUTO) 1.8 % (0-2); EOSINOPHILS % (AUTO) 6.3 % (0-6); HEMATOCRIT 38.4 % (37.9-51.0); MEAN CORPUSCULAR HEMOGLOBIN 30.8 pg (27.0-33.4); MEAN CORPUSCULAR VOLUME 91 fl (80-97); MONOCYTES % (AUTO) 7.1 % (3-13); PLATELET COUNT 479 10^3/uL (150-450); RED BLOOD COUNT 4.23 10^6/uL (4.35-5.55); RED CELL DISTRIBUTION WIDTH 12.6 % (11.5-14.0); SEGMENTED NEUTROPHILS % (AUTO) 57.8 % (42-78); TOTAL CELLS COUNTED % (AUTO) 100 %; WHITE BLOOD COUNT 14.9 10^3/uL (4.0-10.5)
[2019-04-21 04:24] LABS: ARTERIAL BLOOD H2CO3 1.32 mmol/L (1.05-1.35); ARTERIAL BLOOD HCO3 29.6 mmol/L (20-24); ARTERIAL BLOOD O2 SATURATION 98.6 % (94-98); ARTERIAL BLOOD PCO2 43.8 mmHg (35-45); ARTERIAL BLOOD PH 7.45 (7.35-7.45); ARTERIAL BLOOD PO2 125.2 mmHg (80-100)
[2019-04-21 04:27] LABS: ARTERIAL BLOOD FIO2 35%
[2019-04-21 04:30] LABS: ALANINE AMINOTRANSFERASE 70 U/L (21-72); ALBUMIN 4.2 g/dL (3.5-5.0); ALKALINE PHOSPHATASE 74 U/L (38-126); ANION GAP 13 (5-19); ASPARTATE AMINO TRANSFERASE 52 U/L (17-59); BILIRUBIN,DIRECT 0.3 mg/dL (0.0-0.4); BILIRUBIN,TOTAL 0.5 mg/dL (0.2-1.3); BLOOD UREA NITROGEN 33 mg/dL (7-20); CALCIUM 10.1 mg/dL (8.4-10.2); CARBON DIOXIDE 30 mmol/L (22-30); CHLORIDE 107 mmol/L (98-107); GLUCOSE 123 mg/dL (75-110); POTASSIUM 3.5 mmol/L (3.6-5.0); SODIUM 149.9 mmol/L (137-145); TOTAL PROTEIN 7.9 g/dL (6.3-8.2)
[2019-04-21] MEDS: INSULIN REG, HUMAN 100 UNIT/ML 3 ML VIAL (PYX) SUBCUT SCH ×5 (05:40→23:19)
[2019-04-21] MEDS: HEPARIN SOD (PORCINE) 5,000 UNIT/ML 1 ML SYRINGE SUBCUT SCH ×3 (05:43→21:00)
[2019-04-21] MEDS: CEFAZOLIN 2 GM/D5W RTU 2 GM/50 ML RTUPB IV SCH ×4 (05:45→23:20)
[2019-04-21] MEDS ORDERED: 1/2 NORMAL SALINE 1,000 ML IV PRN (07:58)
--- NOTE | 2019-04-21 08:15 | RADIOLOGY REPORT (SQ) ---
EXAM DESCRIPTION: CHEST SINGLE VIEW COMPLETED DATE/TIME: 04/21/2019 6:06 am REASON FOR STUDY: resp failure COMPARISON: 04/20/2019 NUMBER OF VIEWS: One view. TECHNIQUE: Single frontal radiographic image of the chest acquired. LIMITATIONS: None. FINDINGS: LUNGS AND PLEURA: Stable appearance. MEDIASTINUM AND HILAR STRUCTURES: Stable heart size and mediastinal structures. HEART AND VASCULAR STRUCTURES: Stable appearance. SUPPORT DEVICES: Appropriate location without change. BONES: No acute findings. OTHER: No other significant finding. IMPRESSION: STABLE APPEARANCE OF THE CHEST. SUPPORT DEVICES UNCHANGED. TECHNICAL DOCUMENTATION: JOB ID: [id number] [facility]- All Rights Reserved Reading location - IP/workstation name: [email or web address]
--- NOTE | 2019-04-21 08:59 | PDOC PROGRESS REPORT ---
Subjective Progress Note for:: 04/21/19 Subjective:: 48 year old male who presented to the emergency room via EMS having been found unresponsive with heroin and syringes were present on the scene. He was subsequently intubated. He was noted to have a positive urine drug screen for benzodiazepines and amphetamines. 04/12: Patient is intubated and sedated. Per RN, patient had significantly thick yellowish secretions coming from the ET. Patient also became very tachycardic when attempted to be weaned off sedation. 04/13: He remains intubated and sedated. He did develop fever last night and this morning. Minimal secretions on the ET today. However patient did have transient desaturation. Currently saturating at 92-93% on 40% FiO2. 04/14: Patient remains intubated and sedated. Chest CT shows bilateral lower lobe pneumonia with bilateral effusions. 04/15: He remains sedated and intubated. Currently saturating well on 45% FiO2. Will do a weaning trial today. 04/16: Patient remains sedated. Patient's sister disclosed today that he might have overdosed on a whole bottle of Vyvanse as her daughter's entire bottle of Vyvanse was found empty and she says that patient has had a prior history of overdosing on pills. He is saturating at 92 to 92% on 45% FiO2. He continues to have copious, thick yellowish secretions. There is a question if the ET tube was coiled as it remained away above the neela despite adjustment and pushing down by several centimeters based on location on chest x-ray. Attempted to replace tube with a bougie but was unsuccessful. ET tube was taken out and was replaced successfully. 04/17: No acute event overnight. Patient remains sedated and intubated. Reviewed chest x-ray, there is slight improvement from yesterday. He does continue to have thick, yellowish secretions on the ET. Now able to come down on the FiO2 from 45% to 35%. 04/18/2019-patient still under mechanical ventilation under sedation. Sedation was briefly turned off this morning and the patient is still not opening his eyes. Tracheal aspirate cultures came back positive for staph aureus. To add vancomycin to the present antibiotic therapy. Presently on 35% FiO2. 04/19/2019-no acute events in the last 24 hours. Afebrile. Still under mechanical ventilation and on propofol 40 mcg/kg/min. Tracheal aspirate showing staph aureus presently on Zosyn and IV Rocephin. CT head was done yesterday did not show any acute changes. His potassium is 3.4 today which is supplemented. 04/20/2019-no acute events in the last 24 hours. The patient is afebrile. Still on propofol and on mechanical ventilation. Versed was discontinued this morning. Patient is started spontaneously opening his eyes. Patient is also on as needed fentanyl. The tracheal aspirate and sputum cultures came back positi ve for MSSA and Haemophilus influenza. T-max is 98.8. Today is the ninth day of intubation. plan Is to gradually wean him off from the ventilator. 04/21/[id number]-pxok-old male admitted with drug overdose status post intubation and that he is on pressor support now planning to wean him off this morning. Patient is alert awake responding to the verbal commands. He is off the sedation. No acute events in the last 24 hours T-max is 99.7 today. Reason For Visit: ACUTE MULTIPLE DRUG OVERDOSE Physical Exam Vital Signs: Temp Pulse Resp BP Pulse Ox 99.7 F 128 H 14 135/96 H 97 04/21/19 08:00 04/21/19 08:00 04/21/19 08:00 04/21/19 08:00 04/21/19 08:00 Intake & Output 04/20/19 04/21/19 04/22/19 06:59 06:59 06:59 Intake Total 2382 1445 Output Total 2470 1855 Balance -88 -410 Weight 77.8 kg 74.6 kg General appearance: PRESENT: mild distress, thin Head exam: PRESENT: atraumatic Eye exam: PRESENT: PERRLA Teeth exam: PRESENT: poor dentation Neck exam: ABSENT: carotid bruit, JVD, lymphadenopathy, thyromegaly Respiratory exam: PRESENT: decreased breath sounds Cardiovascular exam: PRESENT: tachycardia GI/Abdominal exam: PRESENT: normal bowel sounds, soft. ABSENT: distended, guarding, mass, organolmegaly, rebound, tenderness Rectal exam: PRESENT: deferred Gentrourinary exam: PRESENT: indwelling catheter Neurological exam: PRESENT: alert, awake, oriented to person, oriented to place, oriented to time, oriented to situation, CN II-XII grossly intact. ABSENT: motor sensory deficit Psychiatric exam: PRESENT: agitated, anxious Results Laboratory Results: 04/21/19 04:05 04/21/19 04:05 04/20/19 04/21/19 04/21/19 16:01 04:05 04:05 WBC 14.9 H RBC 4.23 L Hgb 13.0 L Hct 38.4 MCV 91 MCH 30.8 MCHC 34.0 RDW 12.6 Plt Count 479 H Seg Neutrophils % 57.8 Lymphocytes % 27.0 Monocytes % 7.1 Eosinophils % 6.3 H Basophils % 1.8 Absolute Neutrophils 8.6 H Absolute Lymphocytes 4.0 Absolute Monocytes 1.1 Absolute Eosinophils 0.9 H Absolute Basophils 0.3 H Carbonic Acid HCO3/H2CO3 Ratio ABG pH ABG pCO2 ABG pO2 ABG HCO3 ABG O2 Saturation ABG Base Excess FiO2 Sodium 149.9 H Potassium 3.7 3.5 L Chloride 107 Carbon Dioxide 30 Anion Gap 13 BUN 33 H Creatinine 0.82 Est GFR ( Amer) > 60 Est GFR (Non-Af Amer) > 60 Glucose 123 H Calcium 10.1 Magnesium 2.2 Total Bilirubin 0.5 AST 52 ALT 70 Alkaline Phosphatase 74 Total Protein 7.9 Albumin 4.2 04/21/19 04:12 WBC RBC Hgb Hct MCV MCH MCHC RDW Plt Count Seg Neutrophils % Lymphocytes % Monocytes % Eosinophils % Basophils % Absolute Neutrophils Absolute Lymphocytes Absolute Monocytes Absolute Eosinophils Absolute Basophils Carbonic Acid 1.32 HCO3/H2CO3 Ratio 22:1 ABG pH 7.45 ABG pCO2 43.8 ABG pO2 125.2 H ABG HCO3 29.6 H ABG O2 Saturation 98.6 H ABG Base Excess 5.0 FiO2 35% Sodium Potassium Chloride Carbon Dioxide Anion Gap BUN Creatinine Est GFR ( Amer) Est GFR (Non-Af Amer) Glucose Calcium Magnesium Total Bilirubin AST ALT Alkaline Phosphatase Total Protein Albumin 04/11/19 04/11/19 04/11/19 06:33 06:33 11:56 Creatine Kinase 187 H 146 CK-MB (CK-2) 2.47 Troponin I < 0.012 04/11/19 04/11/19 04/11/19 11:56 17:43 17:43 Creatine Kinase 116 CK-MB (CK-2) 1.86 1.37 Troponin I < 0.012 < 0.012 Impressions: Chest CT 04/14/19 00:00 IMPRESSION: Pleural effusions. Airspace disease in each lower lobe, atelectasis versus pneumonia. Head CT 04/18/19 00:00 IMPRESSION: No acute intracranial findings. Increasing sphenoid and ethmoid sinus fluid. EVIDENCE OF ACUTE STROKE: NO. Chest X-Ray 04/21/19 06:00 IMPRESSION: STABLE APPEARANCE OF THE CHEST. SUPPORT DEVICES UNCHANGED. Assessment and Plan - Diagnosis (1) Acute respiratory failure with hypoxia Is this a current diagnosis for this admission?: Yes Plan: 04/13: Currently intubated and sedated. Patient became very tachycardic and slightly tachypneic when weaning off sedation was attempted. 04/14: Patient remains intubated and sedated. Chest CT shows bilateral lower lobe pneumonia with bilateral effusions. 04/15: He remains sedated and intubated. Currently saturating well on 45% FiO2. Will do a weaning trial today. 04/16: Patient remains sedated. Patient's sister disclosed today that he might have overdosed on a whole bottle of Vyvanse as her daughter's entire bottle of Vyvanse was found empty and she says that patient has had a prior history of overdosing on pills. He is saturating at 92 to 92% on 45% FiO2. He continues to have copious, thick yellowish secretions. There is a question if the ET tube was coiled as it remained away above the neela despite adjustment and pushing down by several centimeters based on location on chest x-ray. Attempted to replace ET tube with a bougie but was unsuccessful. ET tube was taken out and was replaced successfully. 04/18/2019-patient's remains sedated under mechanical ventilation. Sedation was briefly turned off this morning and the patient is not spontaneously opening the eyes. Plan to keep him under mechanical ventilation until tomorrow try to wean him off from there. Tracheal aspirate culture came back positive for staph aureus. 04/19/2019-patient is on Versed 40 mcg/kg/min and after mechanical ventilation we are going to continue to keep him sedated and ventilated today and gradually try to wean him off from sedations and probably try to extubate him on Wednesday. Acute respiratory failure with hypoxia may be secondary to drug overdose and the sputum culture came back positive for MSSA. 04/20/[id number]-ugtv-old male admitted with drug overdose and acute respiratory failure with hypoxia status post intubation. Is to slowly wean him off from the ventilator. Presently on propofol 40 mcg/kg/min. T-max is 98.8. Tracheal aspirate and Gram stain came back positive for MSSA and H influenza presently on Zosyn and IV Rocephin. 04/21/[id number]-iyuk-old male admitted with methamphetamine use status post intubation for acute respiratory failure with hypoxia. He is off the pressors he is on pressor support right now. Plan is to extubate him today. Presently is on IV Zosyn and IV Rocephin for MSSA and H. influenzae. T-max is 99.9. Plan is to continue the present management. (2) Toxic encephalopathy Is this a current diagnosis for this admission?: Yes Plan: Secondary to substance abuse. UDS was the positive for amphetamines. There was reported heroine and syringes close to patient when he was found unresponsive. 03/16: Possible Vyvanse overdose as mentioned. 04/17/2019-patient is admitted with substance abuse urine drug screen is positive for amphetamines. Mental status most likely secondary to polysubstance abuse. Repeat CT scan was requested for this morning. Initial CT scan is negative for acute pathology. 04/19/2019-urine drug screen at the time of admission came back positive for amphetamines. Altered mental status/toxic encephalopathy most likely secondary to drug use. Repeat CT head done yesterday is negative for acute changes. He is moving upper and lower extremities without any problem he is still not responding to the commands and not spontaneously opening the eyes. 04/20/2019-urine drug screen is positive for amphetamines toxic encephalopathy most likely secondary to drug overdose in association with acute respiratory failure with hypoxia requiring intubation. 04/21/2019-urine drug screen is positive for amphetamines and toxic encephalopathy most likely secondary to substance use. (3) Suicidal ideation Is this a current diagnosis for this admission?: Yes (4) Pneumonia Is this a current diagnosis for this admission?: Yes Plan: Sputum culture grew haemophilus influenzae and MSSA. Discontinue vancomycin and Zosyn. Switched to Rocephin. 04/16: Patient continues to have copious, very thick, yellowish secretions coming from the ET despite being on Rocephin. We will switch patient to Zosyn. Repeat sputum culture. 04/18/2019-repeat sputum cultures came back positive for MSSA. Presently on IV Zosyn and IV vancomycin was initiated today. Chest x-ray did not suggestive of any pneumonia. Patient may have aspiration pneumonia because of drug overdose. MSSA is the causative organism. 04/19/2019-sputum cultures positive for MSSA. Presently on IV Zosyn and IV Rocephin T-max is 99.5 plan is to continue the present management. 04/20/2019-sputum cultures and tracheal aspirate came back positive for MSSA and H. influenzae. Presently on Zosyn and IV Rocephin. Plan is to continue the present management T-max is 98.8. 04/21/2019-sputum cultures and tracheal aspirate came back positive for MSSA and H influenza presently on IV Zosyn and IV Rocephin T-max is 99.7 plan is to extubate him today and to continue to do the follow-up chest x-rays. (5) Hypokalemia Is this a current diagnosis for this admission?: Yes Plan: 04/19/2019-serum potassium is 3.4 which is going to be supplemented today. 04/20/2019-serum potassium is 3.3 he was given 40 mg of care of this morning probably patient need a daily dose of IV potassium. 04/21/2019-serum potassium is 3.5 patient is receiving daily potassium supplementations. He is going to receive 40 mg of IV K rider today. - Time Time Spent with patient: 35 or more minutes Smoking Cessation Education: over 10 minutes Medications reviewed and adjusted accordingly: Yes Anticipated discharge: Home
[2019-04-21] MEDS: FUROSEMIDE INJ/PF 20 MG/2 ML SDV IV SCH ×2 (09:04→21:00)
[2019-04-21] MEDS: LORAZEPAM INJ 2 MG/1 ML VIAL IV PRN ×3 (17:25→22:25)
[2019-04-22] MEDS: ACETYLCYSTEINE 10% NEB 400 MG/4 ML VIAL NEB SCH ×2 (00:26→08:29)
[2019-04-22] MEDS: IPRATROPIUM/ALBUTEROL 0.5-2.5 MG/3 ML AMPUL NEB SCH ×3 (00:26→15:50)
[2019-04-22] MEDS: FENTANYL CITRATE INJ/PF 100 MCG/2 ML AMPUL IV PRN ×11 (01:45→23:22)
[2019-04-22] MEDS: LORAZEPAM INJ 2 MG/1 ML VIAL IV PRN ×5 (03:50→20:20)
[2019-04-22 04:16] LABS: HEMATOCRIT 38.8 % (37.9-51.0); HEMOGLOBIN 13.1 g/dL (13.5-17.0); MEAN CORPUSCULAR HEMOGLOBIN 30.8 pg (27.0-33.4); MEAN CORPUSCULAR HGB CONC 33.7 g/dL (32.0-36.0); MEAN CORPUSCULAR VOLUME 91 fl (80-97); PLATELET COUNT 479 10^3/uL (150-450); RED BLOOD COUNT 4.26 10^6/uL (4.35-5.55); RED CELL DISTRIBUTION WIDTH 12.9 % (11.5-14.0); WHITE BLOOD COUNT 12.3 10^3/uL (4.0-10.5)
[2019-04-22 04:35] LABS: ABSOLUTE LYMPHOCYTES# (MANUAL) 4.6 10^3/uL (0.5-4.7); ABSOLUTE MONOCYTES # (MANUAL) 0.6 10^3/uL (0.1-1.4); BASOPHILS % (MANUAL) 0 % (0-2); EOSINOPHILS % (MANUAL) 6 % (0-6); LYMPHOCYTES % (MANUAL) 37 % (13-45); MONOCYTES % (MANUAL) 5 % (3-13); SEGMENTED NEUTROPHILS % (MAN) 52 % (42-78); TOTAL CELLS COUNTED 100
[2019-04-22 04:36] LABS: ALANINE AMINOTRANSFERASE 57 U/L (21-72); ALKALINE PHOSPHATASE 65 U/L (38-126); ANION GAP 12 (5-19); ASPARTATE AMINO TRANSFERASE 48 U/L (17-59); BILIRUBIN,DIRECT 0.3 mg/dL (0.0-0.4); BILIRUBIN,TOTAL 0.6 mg/dL (0.2-1.3); BLOOD UREA NITROGEN 35 mg/dL (7-20); CALCIUM 10.2 mg/dL (8.4-10.2); CARBON DIOXIDE 30 mmol/L (22-30); CHLORIDE 102 mmol/L (98-107); GLUCOSE 119 mg/dL (75-110); POTASSIUM 3.6 mmol/L (3.6-5.0); SODIUM 143.7 mmol/L (137-145); TOTAL PROTEIN 7.7 g/dL (6.3-8.2)
[2019-04-22 04:37] LABS: HELMET CELLS SLIGHT; OVALOCYTES SLIGHT; PLATELET COMMENT ADEQUATE; POIKILOCYTOSIS SLIGHT; TEAR DROP CELLS SLIGHT; TOXIC GRANULATION 1+
[2019-04-22] MEDS: CEFAZOLIN 2 GM/D5W RTU 2 GM/50 ML RTUPB IV SCH ×4 (05:02→23:22)
[2019-04-22] MEDS: HEPARIN SOD (PORCINE) 5,000 UNIT/ML 1 ML SYRINGE SUBCUT SCH ×3 (05:11→21:00)
[2019-04-22] MEDS: INSULIN REG, HUMAN 100 UNIT/ML 3 ML VIAL (PYX) SUBCUT SCH ×3 (05:38→17:31)
[2019-04-22] MEDS: FUROSEMIDE INJ/PF 20 MG/2 ML SDV IV SCH (09:16)
[2019-04-22] MEDS: METOPROLOL TARTRATE PF/INJ 5 MG/5 ML SDV IV PRN ×2 (09:16→17:30)
--- NOTE | 2019-04-22 09:39 | PDOC PROGRESS REPORT ---
Subjective Progress Note for:: 04/22/19 Subjective:: 48 year old male who presented to the emergency room via EMS having been found unresponsive with heroin and syringes were present on the scene. He was subsequently intubated. He was noted to have a positive urine drug screen for benzodiazepines and amphetamines. 04/12: Patient is intubated and sedated. Per RN, patient had significantly thick yellowish secretions coming from the ET. Patient also became very tachycardic when attempted to be weaned off sedation. 04/13: He remains intubated and sedated. He did develop fever last night and this morning. Minimal secretions on the ET today. However patient did have transient desaturation. Currently saturating at 92-93% on 40% FiO2. 04/14: Patient remains intubated and sedated. Chest CT shows bilateral lower lobe pneumonia with bilateral effusions. 04/15: He remains sedated and intubated. Currently saturating well on 45% FiO2. Will do a weaning trial today. 04/16: Patient remains sedated. Patient's sister disclosed today that he might have overdosed on a whole bottle of Vyvanse as her daughter's entire bottle of Vyvanse was found empty and she says that patient has had a prior history of overdosing on pills. He is saturating at 92 to 92% on 45% FiO2. He continues to have copious, thick yellowish secretions. There is a question if the ET tube was coiled as it remained away above the neela despite adjustment and pushing down by several centimeters based on location on chest x-ray. Attempted to replace tube with a bougie but was unsuccessful. ET tube was taken out and was replaced successfully. 04/17: No acute event overnight. Patient remains sedated and intubated. Reviewed chest x-ray, there is slight improvement from yesterday. He does continue to have thick, yellowish secretions on the ET. Now able to come down on the FiO2 from 45% to 35%. 04/18/2019-patient still under mechanical ventilation under sedation. Sedation was briefly turned off this morning and the patient is still not opening his eyes. Tracheal aspirate cultures came back positive for staph aureus. To add vancomycin to the present antibiotic therapy. Presently on 35% FiO2. 04/19/2019-no acute events in the last 24 hours. Afebrile. Still under mechanical ventilation and on propofol 40 mcg/kg/min. Tracheal aspirate showing staph aureus presently on Zosyn and IV Rocephin. CT head was done yesterday did not show any acute changes. His potassium is 3.4 today which is supplemented. 04/20/2019-no acute events in the last 24 hours. The patient is afebrile. Still on propofol and on mechanical ventilation. Versed was discontinued this morning. Patient is started spontaneously opening his eyes. Patient is also on as needed fentanyl. The tracheal aspirate and sputum cultures came back positi ve for MSSA and Haemophilus influenza. T-max is 98.8. Today is the ninth day of intubation. plan Is to gradually wean him off from the ventilator. 04/21/[id number]-gfzv-old male admitted with drug overdose status post intubation and that he is on pressor support now planning to wean him off this morning. Patient is alert awake responding to the verbal commands. He is off the sedation. No acute events in the last 24 hours T-max is 99.7 today. 2018-patient was successfully extubated yesterday and pulse oxes 92% on room air. Patient looks restless in the bed, planning anxiety requesting something for anxiety. No acute events in the last 24 hours. Plan to transfer him to IM today. Reason For Visit: ACUTE MULTIPLE DRUG OVERDOSE Physical Exam Vital Signs: Temp Pulse Resp BP Pulse Ox 99.5 F 118 H 20 123/94 H 94 04/22/19 07:39 04/22/19 08:43 04/22/19 08:29 04/22/19 07:39 04/22/19 08:29 Intake & Output 04/21/19 04/22/19 04/23/19 06:59 06:59 06:59 Intake Total 1445 928 Output Total 1855 1445 40 Balance -410 -517 -40 Weight 74.6 kg 75.5 kg General appearance: PRESENT: mild distress, thin Head exam: PRESENT: atraumatic Eye exam: PRESENT: PERRLA Mouth exam: PRESENT: moist, tongue midline Teeth exam: PRESENT: poor dentation Neck exam: ABSENT: carotid bruit, JVD, lymphadenopathy, thyromegaly Respiratory exam: PRESENT: decreased breath sounds Cardiovascular exam: PRESENT: tachycardia GI/Abdominal exam: PRESENT: normal bowel sounds, soft. ABSENT: distended, guarding, mass, organolmegaly, rebound, tenderness Rectal exam: PRESENT: deferred Gentrourinary exam: PRESENT: indwelling catheter Extremities exam: PRESENT: full ROM. ABSENT: calf tenderness, clubbing, pedal edema Neurological exam: PRESENT: alert, awake, oriented to person, oriented to place, oriented to time, oriented to situation, CN II-XII grossly intact. ABSENT: motor sensory deficit Psychiatric exam: PRESENT: anxious Results Laboratory Results: 04/22/19 03:43 04/22/19 03:43 04/22/19 04/22/19 03:43 03:43 WBC 12.3 H RBC 4.26 L Hgb 13.1 L Hct 38.8 MCV 91 MCH 30.8 MCHC 33.7 RDW 12.9 Plt Count 479 H Seg Neutrophils % Not Reportable Lymphocytes % Not Reportable Monocytes % Not Reportable Eosinophils % Not Reportable Basophils % Not Reportable Absolute Neutrophils Not Reportable Absolute Lymphocytes Not Reportable Absolute Monocytes Not Reportable Absolute Eosinophils Not Reportable Absolute Basophils Not Reportable Sodium 143.7 Potassium 3.6 Chloride 102 Carbon Dioxide 30 Anion Gap 12 BUN 35 H Creatinine 0.75 Est GFR ( Amer) > 60 Est GFR (Non-Af Amer) > 60 Glucose 119 H Calcium 10.2 Magnesium 2.2 Total Bilirubin 0.6 AST 48 ALT 57 Alkaline Phosphatase 65 Total Protein 7.7 Albumin 4.0 04/11/19 04/11/19 04/11/19 06:33 06:33 11:56 Creatine Kinase 187 H 146 CK-MB (CK-2) 2.47 Troponin I < 0.012 04/11/19 04/11/19 04/11/19 11:56 17:43 17:43 Creatine Kinase 116 CK-MB (CK-2) 1.86 1.37 Troponin I < 0.012 < 0.012 Impressions: Chest CT 04/14/19 00:00 IMPRESSION: Pleural effusions. Airspace disease in each lower lobe, atelectasis versus pneumonia. Head CT 04/18/19 00:00 IMPRESSION: No acute intracranial findings. Increasing sphenoid and ethmoid sinus fluid. EVIDENCE OF ACUTE STROKE: NO. Chest X-Ray 04/21/19 06:00 IMPRESSION: STABLE APPEARANCE OF THE CHEST. SUPPORT DEVICES UNCHANGED. Assessment and Plan - Diagnosis (1) Acute respiratory failure with hypoxia Is this a current diagnosis for this admission?: Yes Plan: 04/13: Currently intubated and sedated. Patient became very tachycardic and slightly tachypneic when weaning off sedation was attempted. 04/14: Patient remains intubated and sedated. Chest CT shows bilateral lower lobe pneumonia with bilateral effusions. 04/15: He remains sedated and intubated. Currently saturating well on 45% FiO2. Will do a weaning trial today. 04/16: Patient remains sedated. Patient's sister disclosed today that he might have overdosed on a whole bottle of Vyvanse as her daughter's entire bottle of Vyvanse was found empty and she says that patient has had a prior history of overdosing on pills. He is saturating at 92 to 92% on 45% FiO2. He continues to have copious, thick yellowish secretions. There is a question if the ET tube was coiled as it remained away above the neela despite adjustment and pushing down by several centimeters based on location on chest x-ray. Attempted to replace ET tube with a bougie but was unsuccessful. ET tube was taken out and was replaced successfully. 04/18/2019-patient's remains sedated under mechanical ventilation. Sedation was briefly turned off this morning and the patient is not spontaneously opening the eyes. Plan to keep him under mechanical ventilation until tomorrow try to wean him off from there. Tracheal aspirate culture came back positive for staph aureus. 04/19/2019-patient is on Versed 40 mcg/kg/min and after mechanical ventilation we are going to continue to keep him sedated and ventilated today and gradually try to wean him off from sedations and probably try to extubate him on Wednesday. Acute respiratory failure with hypoxia may be secondary to drug overdose and the sputum culture came back positive for MSSA. 04/20/[id number]-zroj-old male admitted with drug overdose and acute respiratory failure with hypoxia status post intubation. Is to slowly wean him off from the ventilator. Presently on propofol 40 mcg/ kg/min. T-max is 98.8. Tracheal aspirate and Gram stain came back positive for MSSA and H influenza presently on Zosyn and IV Rocephin. 04/21/[id number]-wlre-old male admitted with methamphetamine use status post intubation for acute respiratory failure with hypoxia. He is off the pressors he is on pressor support right now. Plan is to extubate him today. Presently is on IV Zosyn and IV Rocephin for MSSA and H. influenzae. T-max is 99.9. Plan is to continue the present management. 04/22/2019-admitted for acute respiratory failure with hypoxia. Status post intubation and successful extubation yesterday. Pulse ox is 92% on room air. Chest x-ray was stable. Presently on IV Zosyn and IV Rocephin for MSSA and H. influenzae. (2) Toxic encephalopathy Is this a current diagnosis for this admission?: Yes Plan: Secondary to substance abuse. UDS was the positive for amphetamines. There was reported heroine and syringes close to patient when he was found unresponsive. 03/16: Possible Vyvanse overdose as mentioned. 04/17/2019-patient is admitted with substance abuse urine drug screen is positive for amphetamines. Mental status most likely secondary to polysubstance abuse. Repeat CT scan was requested for this morning. Initial CT scan is negative for acute pathology. 04/19/2019-urine drug screen at the time of admission came back positive for amphetamines. Altered mental status/toxic encephalopathy most likely secondary to drug use. Repeat CT head done yesterday is negative for acute changes. He is moving upper and lower extremities without any problem he is still not responding to the commands and not spontaneously opening the eyes. 04/20/2019-urine drug screen is positive for amphetamines toxic encephalopathy most likely secondary to drug overdose in association with acute respiratory failure with hypoxia requiring intubation. 04/21/2019-urine drug screen is positive for amphetamines and toxic e ncephalopathy most likely secondary to substance use. 04/22/2019-alert awake communicating well following the commands. Toxic encephalopathy most likely secondary to drug overdose is resolved. (3) Suicidal ideation Is this a current diagnosis for this admission?: Yes Plan: He will be reevaluated by psych when he gets extubated. Family did say that he had suicidal ideations at home. He may need possible inpatient psych placement. 04/18/2019-patient was admitted for suicidal ideation presently intubated once he is extubated psych will reevaluate him. Patient may need inpatient psych placement. 04/20/2019-once patient is successfully extubated psych team will be contacted for recommendations. 04/22/2019-patient is under involuntary commitment and psych team is following the patient. He may need to go to inpatient psych facility. (4) Pneumonia Is this a current diagnosis for this admission?: Yes Plan: Sputum culture grew haemophilus influenzae and MSSA. Discontinue vancomycin and Zosyn. Switched to Rocephin. 04/16: Patient continues to have copious, very thick, yellowish secretions coming from the ET despite being on Rocephin. We will switch patient to Zosyn. Repeat sputum culture. 04/18/2019-repeat sputum cultures came back positive for MSSA. Presently on IV Zosyn and IV vancomycin was initiated today. Chest x-ray did not suggestive of any pneumonia. Patient may have aspiration pneumonia because of drug overdose. MSSA is the causative organism. 04/19/2019-sputum cultures positive for MSSA. Presently on IV Zosyn and IV Rocephin T-max is 99.5 plan is to continue the present management. 04/20/2019-sputum cultures and tracheal aspirate came back positive for MSSA and H. influenzae. Presently on Zosyn and IV Rocephin. Plan is to continue the present management T-max is 98.8. 04/21/2019-sputum cultures and tracheal aspirate came back positive for MSSA and H influenza presently on IV Zosyn and IV Rocephin T-max is 99.7 plan is to extubate him today and to continue to do the follow-up chest x-rays. 04/22/2019-sputum culture and tracheal aspirate showing MSSA and H influenza on IV Zosyn and IV Rocephin T-max is 99.5 today. Plan is to continue the present management and do the chest x-rays and PRN basis. (5) Hypokalemia Is this a current diagnosis for this admission?: Yes Plan: 04/19/2019-serum potassium is 3.4 which is going to be supplemented today. 04/20/2019-serum potassium is 3.3 he was given 40 mg of care of this morning probably patient need a daily dose of IV potassium. 04/21/2019-serum potassium is 3.5 patient is receiving daily potassium supplementations. He is going to receive 40 mg of IV K rider today. 04/22/2019- serum potassium 3.6 and hypokalemia resolved - Time Time Spent with patient: 35 or more minutes Smoking Cessation Education: over 10 minutes Medications reviewed and adjusted accordingly: Yes Anticipated discharge: SNF
--- NOTE | 2019-04-22 14:22 | PSYCHOLOGICAL NOTE ---
Psych Note - Psych Note Date seen by psych provider: 04/22/19 Time seen by psych provider: 10:00 Psych Note: Reason for Consult: Overdose BRENDA GACRIA (Shep) is a 48 year old male who presented to the emergency room via EMS having been found down at an unrelated bystanders home. Patient was extubated yesterday. Today he somnolent and having difficulty staying awake during evaluation. Clinician notes the attending nurse disclosed she needed to medicate the patient due to agitation prior to clinician's arrival. She continues close that patient demonstrates mood lability with both laughing and crying. She reports there was some concern last night in regards to comments the patient made to his family. Patient shakes his head no when asked if he wants to however will not answer questions in regards to if he intentionally overdosed or had thoughts of self-harm. Clinician spoke with patient's sister, Mary, . She disclosed that the patient has been inpatient once previously in 1989 or at [facility] in [facility]. That treatment was for both substance abuse and thoughts of self-harm. She denies any knowledge of inpatient psychiatric or substance abuse treatment since that time. 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 She reports that the family has gone through many losses over the last 5 years which include grandparents, their mother, close and, a friend in [place], and the patient's 2 dogs that he identifies as his therapy dogs. She disclosed that the family lives together and while the father recently remarried and the patient has stated that he really likes his new stepmother he has had a hard time adjusting to all the changes. She identifies her brother is a "functioning" addict over the years however seems to have gotten out of control and no longer able to function. She reports that over the weekend the patient "blew up" over nothing and has been more aggressive lately. She states that the patient told her an argument that he would burn the house down with all 3 of them still in the home. She clarified that he was talking about her, her daughter, and himself. She reports that he also made a comment that he could purchase $200 worth of drugs and "end it all." She disclosed that on Wednesday their father spoke to him about moving out and he seemed upbeat and stated he was not matted anyone and was looking forward to the change. Clinician notes patient was found that following Wednesday unresponsive. Probable bipolar disorder due to long-term substance abuse Polysubstance abuse Impression\\plan: Patient is recommended for IVC. While patient denies wanting to , he refuses to engage in answering if he had thoughts of self-harm or intentionally overdosed. Patient's sister reported that 2 days prior to being found, he made both suicidal and homicidal ideation comments. Patient was just extubated yesterday after approximately 11 days. Attending nurse notes mood lability. Patient will be reevaluated. Dr. Garcia was consulted to care management of this patient; 10 physicians in agreement with recommendations and disposition.
[2019-04-22] MEDS ORDERED: OLANZAPINE INJ/PF 10 MG SDV IM PRN (23:19)
[2019-04-22] MEDS ORDERED: OLANZAPINE INJ/PF 10 MG SDV IM ONE (23:22)
[2019-04-23] MEDS: IPRATROPIUM/ALBUTEROL 0.5-2.5 MG/3 ML AMPUL NEB SCH ×3 (00:07→15:44)
[2019-04-23] MEDS: INSULIN REG, HUMAN 100 UNIT/ML 3 ML VIAL (PYX) SUBCUT SCH ×2 (00:14→06:16)
[2019-04-23] MEDS: LORAZEPAM INJ 2 MG/1 ML VIAL IV PRN ×2 (01:23→09:16)
[2019-04-23] MEDS: FENTANYL CITRATE INJ/PF 100 MCG/2 ML AMPUL IV PRN ×5 (01:30→16:50)
[2019-04-23] MEDS ORDERED: METOPROLOL TARTRATE PF/INJ 5 MG/5 ML SDV IV PRN (04:30)
[2019-04-23] MEDS: CEFAZOLIN 2 GM/D5W RTU 2 GM/50 ML RTUPB IV SCH ×4 (06:10→23:31)
[2019-04-23] MEDS: HEPARIN SOD (PORCINE) 5,000 UNIT/ML 1 ML SYRINGE SUBCUT SCH ×3 (06:17→21:14)
--- NOTE | 2019-04-23 08:46 | PDOC PROGRESS REPORT ---
Subjective Progress Note for:: 04/23/19 Subjective:: 48 year old male who presented to the emergency room via EMS having been found unresponsive with heroin and syringes were present on the scene. He was subsequently intubated. He was noted to have a positive urine drug screen for benzodiazepines and amphetamines. 04/12: Patient is intubated and sedated. Per RN, patient had significantly thick yellowish secretions coming from the ET. Patient also became very tachycardic when attempted to be weaned off sedation. 04/13: He remains intubated and sedated. He did develop fever last night and this morning. Minimal secretions on the ET today. However patient did have transient desaturation. Currently saturating at 92-93% on 40% FiO2. 04/14: Patient remains intubated and sedated. Chest CT shows bilateral lower lobe pneumonia with bilateral effusions. 04/15: He remains sedated and intubated. Currently saturating well on 45% FiO2. Will do a weaning trial today. 04/16: Patient remains sedated. Patient's sister disclosed today that he might have overdosed on a whole bottle of Vyvanse as her daughter's entire bottle of Vyvanse was found empty and she says that patient has had a prior history of overdosing on pills. He is saturating at 92 to 92% on 45% FiO2. He continues to have copious, thick yellowish secretions. There is a question if the ET tube was coiled as it remained away above the neela despite adjustment and pushing down by several centimeters based on location on chest x-ray. Attempted to replace tube with a bougie but was unsuccessful. ET tube was taken out and was replaced successfully. 04/17: No acute event overnight. Patient remains sedated and intubated. Reviewed chest x-ray, there is slight improvement from yesterday. He does continue to have thick, yellowish secretions on the ET. Now able to come down on the FiO2 from 45% to 35%. 04/18/2019-patient still under mechanical ventilation under sedation. Sedation was briefly turned off this morning and the patient is still not opening his eyes. Tracheal aspirate cultures came back positive for staph aureus. To add vancomycin to the present antibiotic therapy. Presently on 35% FiO2. 04/19/2019-no acute events in the last 24 hours. Afebrile. Still under mechanical ventilation and on propofol 40 mcg/kg/min. Tracheal aspirate showing staph aureus presently on Zosyn and IV Rocephin. CT head was done yesterday did not show any acute changes. His potassium is 3.4 today which is supplemented. 04/20/2019-no acute events in the last 24 hours. The patient is afebrile. Still on propofol and on mechanical ventilation. Versed was discontinued this morning. Patient is started spontaneously opening his eyes. Patient is also on as needed fentanyl. The tracheal aspirate and sputum cultures came back positi ve for MSSA and Haemophilus influenza. T-max is 98.8. Today is the ninth day of intubation. plan Is to gradually wean him off from the ventilator. 04/21/[id number]-ezsf-old male admitted with drug overdose status post intubation and that he is on pressor support now planning to wean him off this morning. Patient is alert awake responding to the verbal commands. He is off the sedation. No acute events in the last 24 hours T-max is 99.7 today. 2018-patient was successfully extubated yesterday and pulse oxes 92% on room air. Patient looks restless in the bed, planning anxiety requesting something for anxiety. No acute events in the last 24 hours. Plan to transfer him to IMCU today. 04/23/2019-no acute events in the last 24 hours. T-max is 99.7. Plan to discontinue insulin sliding scale and start him on cardiac diet. He is back on restraints. Reason For Visit: ACUTE MULTIPLE DRUG OVERDOSE Physical Exam Vital Signs: Temp Pulse Resp BP Pulse Ox 99.7 F 122 H 18 124/80 96 04/23/19 06:00 04/23/19 08:12 04/23/19 07:57 04/23/19 04:42 04/23/19 07:57 Intake & Output 04/22/19 04/23/19 04/24/19 06:59 06:59 06:59 Intake Total 928 1386 Output Total 1445 1155 Balance -517 231 Weight 75.5 kg 74.5 kg General appearance: PRESENT: no acute distress, thin Head exam: PRESENT: atraumatic Eye exam: PRESENT: PERRLA Mouth exam: PRESENT: moist, tongue midline Teeth exam: PRESENT: poor dentation Neck exam: ABSENT: carotid bruit, JVD, lymphadenopathy, thyromegaly Respiratory exam: PRESENT: decreased breath sounds Cardiovascular exam: PRESENT: RRR. ABSENT: diastolic murmur, rubs, systolic murmur GI/Abdominal exam: PRESENT: normal bowel sounds, soft. ABSENT: distended, guarding, mass, organolmegaly, rebound, tenderness Rectal exam: PRESENT: deferred Extremities exam: PRESENT: full ROM. ABSENT: calf tenderness, clubbing, pedal edema Neurological exam: PRESENT: alert, awake, oriented to person, oriented to place, oriented to time, oriented to situation, CN II-XII grossly intact. ABSENT: motor sensory deficit Psychiatric exam: PRESENT: appropriate affect, normal mood. ABSENT: homicidal ideation, suicidal ideation Results Laboratory Results: 04/22/19 03:43 04/22/19 03:43 04/11/19 04/11/19 04/11/19 06:33 06:33 11:56 Creatine Kinase 187 H 146 CK-MB (CK-2) 2.47 Troponin I < 0.012 04/11/19 04/11/19 04/11/19 11:56 17:43 17:43 Creatine Kinase 116 CK-MB (CK-2) 1.86 1.37 Troponin I < 0.012 < 0.012 Impressions: Chest CT 04/14/19 00:00 IMPRESSION: Pleural effusions. Airspace disease in each lower lobe, atelectasis versus pneumonia. Head CT 04/18/19 00:00 IMPRESSION: No acute intracranial findings. Increasing sphenoid and ethmoid sinus fluid. EVIDENCE OF ACUTE STROKE: NO. Chest X-Ray 04/21/19 06:00 IMPRESSION: STABLE APPEARANCE OF THE CHEST. SUPPORT DEVICES UNCHANGED. Assessment and Plan - Diagnosis (1) Acute respiratory failure with hypoxia Is this a current diagnosis for this admission?: Yes Plan: 04/13: Currently intubated and sedated. Patient became very tachycardic and slightly tachypneic when weaning off sedation was attempted. 04/14: Patient remains intubated and sedated. Chest CT shows bilateral lower lobe pneumonia with bilateral effusions. 04/15: He remains sedated and intubated. Currently saturating well on 45% FiO2. Will do a weaning trial today. 04/16: Patient remains sedated. Patient's sister disclosed today that he might have overdosed on a whole bottle of Vyvanse as her daughter's entire bottle of Vyvanse was found empty and she says that patient has had a prior history of overdosing on pills. He is saturating at 92 to 92% on 45% FiO2. He continues to have copious, thick yellowish secretions. There is a question if the ET tube was coiled as it remained away above the neela despite adjustment and pushing down by several centimeters based on location on chest x-ray. Attempted to rep lace ET tube with a bougie but was unsuccessful. ET tube was taken out and was replaced successfully. 04/18/2019-patient's remains sedated under mechanical ventilation. Sedation was briefly turned off this morning and the patient is not spontaneously opening the eyes. Plan to keep him under mechanical ventilation until tomorrow try to wean him off from there. Tracheal aspirate culture came back positive for staph aureus. 04/19/2019-patient is on Versed 40 mcg/kg/min and after mechanical ventilation we are going to continue to keep him sedated and ventilated today and gradually try to wean him off from sedations and probably try to extubate him on Wednesday. Acute respiratory failure with hypoxia may be secondary to drug overdose and the sputum culture came back positive for MSSA. 04/20/[id number]-hxev-old male admitted with drug overdose and acute respiratory failure with hypoxia status post intubation. Is to slowly wean him off from the ventilator. Presently on propofol 40 mcg/kg/min. T-max is 98.8. Tracheal aspirate and Gram stain came back positive for MSSA and H influenza presently on Zosyn and IV Rocephin. 04/21/[id number]-qoig-old male admitted with methamphetamine use status post intubation for acute respiratory failure with hypoxia. He is off the pressors he is on pressor support right now. Plan is to extubate him today. Presently is on IV Zosyn and IV Rocephin for MSSA and H. influenzae. T-max is 99.9. Plan is to continue the present management. 04/22/2019-admitted for acute respiratory failure with hypoxia. Status post intubation and successful extubation yesterday. Pulse ox is 92% on room air. Chest x-ray was stable. Presently on IV Zosyn and IV Rocephin for MSSA and H. influenzae. 04/23/2019-admitted with respiratory failure with hypoxia status post intubation and extubation. Pulse ox today is 94% room air. Comfortably in the bed. Presently on IV Zosyn and IV Rocephin. Cultures came back positive for MSSA and H. influenzae. (2) Toxic encephalopathy Is this a current diagnosis for this admission?: Yes (3) Suicidal ideation Is this a current diagnosis for this admission?: Yes Plan: He will be reevaluated by psych when he gets extubated. Family did say that he had suicidal ideations at home. He may need possible inpatient psych placement. 04/18/2019-patient was admitted for suicidal ideation presently intubated once he is extubated psych will reevaluate him. Patient may need inpatient psych placement. 04/20/2019-once patient is successfully extubated psych team will be contacted for recommendations. 04/22/2019-patient is under involuntary commitment and psych team is following the patient. He may need to go to inpatient psych facility. 04/23/2019-patient still under IVC and on restraints psych is following the jonathan aguero most likely plan is to transfer him to inpatient psych facility. (4) Pneumonia Is this a current diagnosis for this admission?: Yes Plan: Sputum culture grew haemophilus influenzae and MSSA. Discontinue vancomycin and Zosyn. Switched to Rocephin. 04/16: Patient continues to have copious, very thick, yellowish secretions coming from the ET despite being on Rocephin. We will switch patient to Zosyn. Repeat sputum culture. 04/18/2019-repeat sputum cultures came back positive for MSSA. Presently on IV Zosyn and IV vancomycin was initiated today. Chest x-ray did not suggestive of any pneumonia. Patient may have aspiration pneumonia because of drug overdose. MSSA is the causative organism. 04/19/2019-sputum cultures positive for MSSA. Presently on IV Zosyn and IV Rocephin T-max is 99.5 plan is to continue the present management. 04/20/2019-sputum cultures and tracheal aspirate came back positive for MSSA and H. influenzae. Presently on Zosyn and IV Rocephin. Plan is to continue the present management T-max is 98.8. 04/21/2019-sputum cultures and tracheal aspirate came back positive for MSSA and H influenza presently on IV Zosyn and IV Rocephin T-max is 99.7 plan is to extubate him today and to continue to do the follow-up chest x-rays. 04/22/2019-sputum culture and tracheal aspirate showing MSSA and H influenza on IV Zosyn and IV Rocephin T-max is 99.5 today. Plan is to continue the present management and do the chest x-rays and PRN basis. 04/23/2019-sputum culture and tracheal aspirate showing MSSA and H. influenzae on IV Zosyn and IV Rocephin. T-max is 99.7. Plan is to continue to follow him closely. (5) Hypokalemia Is this a current diagnosis for this admission?: Yes Plan: 04/19/2019-serum potassium is 3.4 which is going to be supplemented today. 04/20/2019-serum potassium is 3.3 he was given 40 mg of care of this morning probably patient need a daily dose of IV potassium. 04/21/2019-serum potassium is 3.5 patient is receiving daily potassium supplementations. He is going to receive 40 mg of IV K rider today. 04/22/2019- serum potassium 3.6 and hypokalemia resolved - Time Time Spent with patient: 25-34 minutes Smoking Cessation Education: over 10 minutes Medications reviewed and adjusted accordingly: Yes Anticipated discharge: Home
--- NOTE | 2019-04-23 15:10 | PSYCHOLOGICAL NOTE ---
Psych Note - Psych Note Date seen by psych provider: 04/23/19 Psych Note: Presenting Problem: ICU for OD. Was intubated for 10 days. Extubated 04/21/19. Today father was visiting. Attending ICU staff contacted [facility] due to increased agitation, restlessness, being uncooperative and becoming verbally aggressive. He stated he sort of recalled the OD after this clinician provided story of what was told. He was not talkative, seemed to be processing information slowly given slow response time and per patient safety teacher he was better when father was not present. MAR indicated patient's psychaitric medications are: Ativan 1MG IV Q2H PRN anxiety and Zyprexa 10MG IM QD (just started yesterday, 04/22/19). Diagnosis: Probable bipolar disorder due to long-term substance abuse Polysubstance abuse Medication recommendations made by the psychiatric medical provider, Dr. Amparo MD., includes: Add Clonidine Patch 0.2MG for calming effect Impression/Plan: Recommendation to maintain IVC given patient's OD attempt and his lack of engagement. Consulted with Dr. Garcia regarding the management and care of patient. Attending Hospitalist made aware of recommendations.
[2019-04-23] MEDS ORDERED: METOPROLOL TARTRATE PF/INJ 5 MG/5 ML SDV IV ONE (17:38)
[2019-04-23] MEDS: HYDRALAZINE HCL INJ/PF 20 MG/1 ML SDV IV PRN (20:29)
[2019-04-24] MEDS: IPRATROPIUM/ALBUTEROL 0.5-2.5 MG/3 ML AMPUL NEB SCH ×4 (00:41→23:52)
[2019-04-24] MEDS: LORAZEPAM INJ 2 MG/1 ML VIAL IV PRN ×2 (01:42→03:29)
[2019-04-24] MEDS: CEFAZOLIN 2 GM/D5W RTU 2 GM/50 ML RTUPB IV SCH ×3 (05:26→17:56)
[2019-04-24] MEDS: HEPARIN SOD (PORCINE) 5,000 UNIT/ML 1 ML SYRINGE SUBCUT SCH ×3 (05:26→21:35)
[2019-04-24 06:27] LABS: ABSOLUTE BASOPHILS # (AUTO) 0.1 10^3/uL (0.0-0.2); ABSOLUTE EOSINOPHILS # (AUTO) 0.7 10^3/uL (0.0-0.6); ABSOLUTE LYMPHOCYTES (AUTO) 2.7 10^3/uL (0.5-4.7); ABSOLUTE MONOCYTES (AUTO) 0.7 10^3/uL (0.1-1.4); ABSOLUTE NEUT (AUTO) 7.6 10^3/uL (1.7-8.2); BASOPHILS % (AUTO) 1.2 % (0-2); EOSINOPHILS % (AUTO) 5.9 % (0-6); HEMATOCRIT 38.6 % (37.9-51.0); HEMOGLOBIN 12.9 g/dL (13.5-17.0); LYMPHOCYTES % (AUTO) 22.9 % (13-45); MEAN CORPUSCULAR HGB CONC 33.4 g/dL (32.0-36.0); MEAN CORPUSCULAR VOLUME 90 fl (80-97); MONOCYTES % (AUTO) 5.8 % (3-13); PLATELET COUNT 550 10^3/uL (150-450); RED CELL DISTRIBUTION WIDTH 12.5 % (11.5-14.0); SEGMENTED NEUTROPHILS % (AUTO) 64.2 % (42-78); TOTAL CELLS COUNTED % (AUTO) 100 %; WHITE BLOOD COUNT 11.9 10^3/uL (4.0-10.5)
[2019-04-24 06:57] LABS: ALANINE AMINOTRANSFERASE 62 U/L (21-72); ALKALINE PHOSPHATASE 65 U/L (38-126); ANION GAP 12 (5-19); ASPARTATE AMINO TRANSFERASE 46 U/L (17-59); BILIRUBIN,DIRECT 0.3 mg/dL (0.0-0.4); BILIRUBIN,TOTAL 0.5 mg/dL (0.2-1.3); BLOOD UREA NITROGEN 24 mg/dL (7-20); CALCIUM 9.8 mg/dL (8.4-10.2); CARBON DIOXIDE 29 mmol/L (22-30); CHLORIDE 100 mmol/L (98-107); GLUCOSE 103 mg/dL (75-110); POTASSIUM 3.9 mmol/L (3.6-5.0); SODIUM 140.5 mmol/L (137-145); TOTAL PROTEIN 7.4 g/dL (6.3-8.2)
--- NOTE | 2019-04-24 10:34 | PDOC CONSULTATION ---
Consultation Consult Date: 04/12/19 Attending physician:: KASEY KAM Provider Consulted: ATILIO YEBOAH Consult reason:: acute resp failure History of Present Illness Admission Date/PCP: 04/11/19 02:07 BLAINE HOWARD MD History of Present Illness: BRENDA GARCIA is a 48 year old male sent into the emergency room obtunded and hypoxic he was found down at home by EMS as he reported that they were syringes as well as heroin at the site he responded transiently to Narcan but again might be some became somnolent and was intubated. He is currently intubated and s edated Past Medical History Psychiatric Medical History: Reports: Depression Traumatic Medical History: Denies: Traumatic Brain Injury Social History Information Source: [facility] Records Smoking Status: Unknown if Ever Smoked - Advance Directive Resuscitation Status: Full Code Family History Parental Family History Reviewed: No Children Family History Reviewed: No Sibling(s) Family History Reviewed.: No Medication/Allergy Home Medications: Diazepam [Valium 5 mg Tablet] 5 mg PO Q12HP PRN 04/11/19 Lisinopril [Prinivil 10 mg Tablet] 40 mg PO DAILY 04/11/19 Paroxetine HCl [Paxil] 40 mg PO DAILY 04/11/19 Allergies/Adverse Reactions: No Known Allergies Allergy (Verified 04/11/19 08:06) Review of Systems ROS unobtainable: Due to endotracheal tube, Due to mental status Physical Exam Vital Signs: Temp Pulse Resp BP Pulse Ox 99.5 F 93 14 102/66 99 04/12/19 08:00 04/12/19 08:00 04/12/19 08:00 04/12/19 08:00 04/12/19 08:53 Intake & Output 04/11/19 04/12/19 04/13/19 06:59 06:59 06:59 Intake Total 1177 7507 200 Output Total 1350 100 Balance 1177 6157 100 Weight 82.3 kg 85.5 kg General appearance: PRESENT: no acute distress, disheveled. ABSENT: cooperative Head exam: PRESENT: atraumatic, normocephalic Eye exam: PRESENT: conjunctiva pale, EOMI Mouth exam: PRESENT: dry mucosa, neck supple, tongue midline, other - ET tube Respiratory exam: PRESENT: crackles, decreased breath sounds, prolonged expiratory phas, rales, rhonchi, tachypnea. ABSENT: retraction, stridor Cardiovascular exam: PRESENT: RRR, +S1, +S2, tachycardia Pulses: PRESENT: normal radial pulses GI/Abdominal exam: PRESENT: soft. ABSENT: mass, tenderness Extremities exam: ABSENT: calf tenderness, clubbing, joint swelling, pedal edema Musculoskeletal exam: ABSENT: ambulatory, deformity, dislocation Neurological exam: ABSENT: awake Skin exam: PRESENT: dry, warm Results Laboratory Results: 04/12/19 04:06 04/12/19 04:06 04/12/19 04/12/19 04/12/19 03:42 04:06 04:06 WBC 10.8 H RBC 3.68 L Hgb 11.5 L D Hct 34.1 L MCV 93 MCH 31.2 MCHC 33.7 RDW 12.8 Plt Count 244 Seg Neutrophils % 66.1 Lymphocytes % 20.2 Monocytes % 7.7 Eosinophils % 5.1 Basophils % 0.9 Absolute Neutrophils 7.1 Absolute Lymphocytes 2.2 Absolute Monocytes 0.8 Absolute Eosinophils 0.6 Absolute Basophils 0.1 Carbonic Acid 1.34 HCO3/H2CO3 Ratio 18:1 ABG pH 7.36 ABG pCO2 44.5 ABG pO2 119.7 H ABG HCO3 24.5 H ABG O2 Saturation 98.2 H ABG Base Excess -1.1 FiO2 35% Sodium Potassium Chloride Carbon Dioxide Anion Gap BUN Creatinine Est GFR ( Amer) Est GFR (Non-Af Amer) Glucose Calcium Magnesium Total Bilirubin AST ALT Alkaline Phosphatase Total Protein Albumin TSH 0.86 Free T4 0.88 Free T3 pg/mL 4.82 04/12/19 04:06 WBC RBC Hgb Hct MCV MCH MCHC RDW Plt Count Seg Neutrophils % Lymphocytes % Monocytes % Eosinophils % Basophils % Absolute Neutrophils Absolute Lymphocytes Absolute Monocytes Absolute Eosinophils Absolute Basophils Carbonic Acid HCO3/H2CO3 Ratio ABG pH ABG pCO2 ABG pO2 ABG HCO3 ABG O2 Saturation ABG Base Excess FiO2 Sodium 141.5 Potassium 4.0 Chloride 108 H Carbon Dioxide 28 Anion Gap 6 BUN 14 Creatinine 0.85 Est GFR ( Amer) > 60 Est GFR (Non-Af Amer) > 60 Glucose 81 Calcium 8.7 Magnesium 1.9 Total Bilirubin 0.2 AST 21 ALT 34 Alkaline Phosphatase 55 Total Protein 5.2 L Albumin 3.0 L TSH Free T4 Free T3 pg/mL 04/11/19 04/11/1919 06:33 06:33 11:56 Creatine Kinase 187 H 146 CK-MB (CK-2) 2.47 Troponin I < 0.012 04/11/19 04/11/19 04/11/19 11:56 17:43 17:43 Creatine Kinase 116 CK-MB (CK-2) 1.86 1.37 Troponin I < 0.012 < 0.012 Impressions: Head CT 04/10/19 22:39 IMPRESSION: No acute intracranial findings. Chest X-Ray 04/12/19 06:00 IMPRESSION: No new cardiopulmonary complication. Advancement of the enteric tube with tip overlying gastric body. Assessment & Plan - Diagnosis (1) Acute respiratory failure with hypoxia Is this a current diagnosis for this admission?: Yes Plan: Mechanical intervention to maniac obtain adequate oxygenation and ventilation (2) Drug overdose Qualifiers: Encounter type: initial encounter Injury intent: undetermined intent Qualified Code(s): T50.904A - Poisoning by unspecified drugs, medicaments and biological substances, undetermined, initial encounter Is this a current diagnosis for this admission?: Yes Plan: Labs- All tests 24 hr 04/11/19 00:07 U Amphetamines Confirm Positive H U Benzodiazepine Confm Positive H (3) Suicidal ideation Is this a current diagnosis for this admission?: Yes Plan: As per psych after patient stable - Time Total Critical Time (Minutes): 55
--- NOTE | 2019-04-24 11:11 | PDOC PROGRESS REPORT ---
Subjective Progress Note for:: 04/24/19 Subjective:: 48 year old male who presented to the emergency room via EMS having been found unresponsive with heroin and syringes were present on the scene. He was subsequently intubated. He was noted to have a positive urine drug screen for benzodiazepines and amphetamines. 04/12: Patient is intubated and sedated. Per RN, patient had significantly thick yellowish secretions coming from the ET. Patient also became very tachycardic when attempted to be weaned off sedation. 04/13: He remains intubated and sedated. He did develop fever last night and this morning. Minimal secretions on the ET today. However patient did have transient desaturation. Currently saturating at 92-93% on 40% FiO2. 04/14: Patient remains intubated and sedated. Chest CT shows bilateral lower lobe pneumonia with bilateral effusions. 04/15: He remains sedated and intubated. Currently saturating well on 45% FiO2. Will do a weaning trial today. 04/16: Patient remains sedated. Patient's sister disclosed today that he might have overdosed on a whole bottle of Vyvanse as her daughter's entire bottle of Vyvanse was found empty and she says that patient has had a prior history of overdosing on pills. He is saturating at 92 to 92% on 45% FiO2. He continues to have copious, thick yellowish secretions. There is a question if the ET tube was coiled as it remained away above the neela despite adjustment and pushing down by several centimeters based on location on chest x-ray. Attempted to replace tube with a bougie but was unsuccessful. ET tube was taken out and was replaced successfully. 04/17: No acute event overnight. Patient remains sedated and intubated. Reviewed chest x-ray, there is slight improvement from yesterday. He does continue to have thick, yellowish secretions on the ET. Now able to come down on the FiO2 from 45% to 35%. 04/18/2019-patient still under mechanical ventilation under sedation. Sedation was briefly turned off this morning and the patient is still not opening his eyes. Tracheal aspirate cultures came back positive for staph aureus. To add vancomycin to the present antibiotic therapy. Presently on 35% FiO2. 04/19/2019-no acute events in the last 24 hours. Afebrile. Still under mechanical ventilation and on propofol 40 mcg/kg/min. Tracheal aspirate showing staph aureus presently on Zosyn and IV Rocephin. CT head was done yesterday did not show any acute changes. His potassium is 3.4 today which is supplemented. 04/20/2019-no acute events in the last 24 hours. The patient is afebrile. Still on propofol and on mechanical ventilation. Versed was discontinued this morning. Patient is started spontaneously opening his eyes. Patient is also on as needed fentanyl. The tracheal aspirate and sputum cultures came back positi ve for MSSA and Haemophilus influenza. T-max is 98.8. Today is the ninth day of intubation. plan Is to gradually wean him off from the ventilator. 04/21/[id number]-gkpi-old male admitted with drug overdose status post intubation and that he is on pressor support now planning to wean him off this morning. Patient is alert awake responding to the verbal commands. He is off the sedation. No acute events in the last 24 hours T-max is 99.7 today. 2018-patient was successfully extubated yesterday and pulse oxes 92% on room air. Patient looks restless in the bed, planning anxiety requesting something for anxiety. No acute events in the last 24 hours. Plan to transfer him to IM today. 04/23/2019-no acute events in the last 24 hours. T-max is 99.7. Plan to discontinue insulin sliding scale and start him on cardiac diet. He is back on restraints. 04/24/[id number]-nyue-old male admitted with a drug overdose status post intubation and extubation for acute respiratory failure with hypoxia. He was downgraded to [facility] yesterday he still under IVC commitment. No acute events in the last 24 hours. Nurse is concerned about his persistent tachycardia heart rate between 1 20-130 started on metoprolol 50 mg p.o. twice daily. Reason For Visit: ACUTE MULTIPLE DRUG OVERDOSE Physical Exam Vital Signs: Temp Pulse Resp BP Pulse Ox 98.4 F 133 H 18 116/74 95 04/24/19 07:51 04/24/19 09:20 04/24/19 09:20 04/24/19 07:51 04/24/19 09:20 Intake & Output 04/23/19 04/24/19 04/25/19 06:59 06:59 06:59 Intake Total 1386 318 Output Total 6845 460 Balance 231 -142 Weight 74.5 kg 79.1 kg General appearance: PRESENT: no acute distress, thin Head exam: PRESENT: atraumatic Eye exam: PRESENT: PERRLA Teeth exam: PRESENT: poor dentation Neck exam: ABSENT: carotid bruit, JVD, lymphadenopathy, thyromegaly Respiratory exam: PRESENT: prolonged expiratory phas Cardiovascular exam: PRESENT: tachycardia GI/Abdominal exam: PRESENT: normal bowel sounds, soft. ABSENT: distended, guarding, mass, organolmegaly, rebound, tenderness Rectal exam: PRESENT: deferred Extremities exam: PRESENT: full ROM. ABSENT: calf tenderness, clubbing, pedal edema Neurological exam: PRESENT: alert, awake, oriented to person, oriented to place, oriented to time, oriented to situation, CN II-XII grossly intact. ABSENT: motor sensory deficit Psychiatric exam: PRESENT: appropriate affect, normal mood. ABSENT: homicidal ideation, suicidal ideation Results Laboratory Results: 04/24/19 05:50 04/24/19 05:50 04/24/19 04/24/19 05:50 05:50 WBC 11.9 H RBC 4.30 L Hgb 12.9 L Hct 38.6 MCV 90 MCH 30.0 MCHC 33.4 RDW 12.5 Plt Count 550 H Seg Neutrophils % 64.2 Lymphocytes % 22.9 Monocytes % 5.8 Eosinophils % 5.9 Basophils % 1.2 Absolute Neutrophils 7.6 Absolute Lymphocytes 2.7 Absolute Monocytes 0.7 Absolute Eosinophils 0.7 H Absolute Basophils 0.1 Sodium 140.5 Potassium 3.9 Chloride 100 Carbon Dioxide 29 Anion Gap 12 BUN 24 H Creatinine 0.81 Est GFR ( Amer) > 60 Est GFR (Non-Af Amer) > 60 Glucose 103 Calcium 9.8 Magnesium 2.2 Total Bilirubin 0.5 AST 46 ALT 62 Alkaline Phosphatase 65 Total Protein 7.4 Albumin 4.0 04/11/19 04/11/19 04/11/19 06:33 06:33 11:56 Creatine Kinase 187 H 146 CK-MB (CK-2) 2.47 Troponin I < 0.012 04/11/19 04/11/19 04/11/19 11:56 17:43 17:43 Creatine Kinase 116 CK-MB (CK-2) 1.86 1.37 Troponin I < 0.012 < 0.012 Impressions: Chest CT 04/14/19 00:00 IMPRESSION: Pleural effusions. Airspace disease in each lower lobe, atelectasis versus pneumonia. Head CT 04/18/19 00:00 IMPRESSION: No acute intracranial findings. Increasing sphenoid and ethmoid sinus fluid. EVIDENCE OF ACUTE STROKE: NO. Chest X-Ray 04/21/19 06:00 IMPRESSION: STABLE APPEARANCE OF THE CHEST. SUPPORT DEVICES UNCHANGED. Assessment and Plan - Diagnosis (1) Acute respiratory failure with hypoxia Is this a current diagnosis for this admission?: Yes Plan: 04/13: Currently intubated and sedated. Patient became very tachycardic and slightly tachypneic when weaning off sedation was attempted. 04/14: Patient remains intubated and sedated. Chest CT shows bilateral lower lobe pneumonia with bilateral effusions. 04/15: He remains sedated and intubated. Currently saturating well on 45% FiO2. Will do a weaning trial today. 04/16: Patient remains sedated. Patient's sister disclosed today that he might have overdosed on a whole bottle of Vyvanse as her daughter's entire bottle of Vyvanse was found empty and she says that patient has had a prior history of overdosing on pills. He is saturating at 92 to 92% on 45% FiO2. He continues to have copious, thick yellowish secretions. There is a question if the ET tube was coiled as it remained away above the neela despite adjustment and pushing down by several centimeters based on location on chest x-ray. Attempted to replace ET tube with a bougie but was unsuccessful. ET tube was taken out and was replaced successfully. 04/18/2019-patient's remains sedated under mechanical ventilation. Sedation was briefly turned off this morning and the patient is not spontaneously opening the eyes. Plan to keep him under mechanical ventilation until tomorrow try to wean him off from there. Tracheal aspirate culture came back positive for staph aureus. 04/19/2019-patient is on Versed 40 mcg/kg/min and after mechanical ventilation we are going to continue to keep him sedated and ventilated today and gradually try to wean him off from sedations and probably try to extubate him on Wednesday. Acute respiratory failure with hypoxia may be secondary to drug overdose and the sputum culture came back positive for MSSA. 04/20/[id number]-yqdi-old male admitted with drug overdose and acute respiratory failure with hypoxia status post intubation. Is to slowly wean him off from the ventilator. Presently on propofol 40 mcg/kg/min. T-max is 98.8. Tracheal aspirate and Gram stain came back positive for MSSA and H influenza presently on Zosyn and IV Rocephin. 04/21/[id number]-yclo-old male admitted with methamphetamine use status post intubation for acute respiratory failure with hypoxia. He is off the pressors he is on pressor support right now. Plan is to extubate him today. Presently is on IV Zosyn and IV Rocephin for MSSA and H. influenzae. T-max is 99.9. Plan is to continue the present management. 04/22/2019-admitted for acute respiratory failure with hypoxia. Status post intubation and successful extubation yesterday. Pulse ox is 92% on room air. Chest x-ray was stable. Presently on IV Zosyn and IV Rocephin for MSSA and H. influenzae. 04/23/2019-admitted with respiratory failure with hypoxia status post intubation and extubation. Pulse ox today is 94% room air. Comfortably in the bed. Presently on IV Zosyn and IV Rocephin. Cultures came back positive for MSSA and H. influenzae. 04/24/2019-patient was admitted with drug overdose leading to acute respiratory failure with hypoxia status post intubation and extubation. He is doing well. Pulse ox is 97% on room air. (2) Toxic encephalopathy Is this a current diagnosis for this admission?: Yes Plan: Secondary to substance abuse. UDS was the positive for amphetamines. There was reported heroine and syringes close to patient when he was found unresponsive. 03/16: Possible Vyvanse overdose as mentioned. 04/17/2019-patient is admitted with substance abuse urine drug screen is positive for amphetamines. Mental status most likely secondary to polysubstance abuse. Repeat CT scan was requested for this morning. Initial CT scan is negative for acute pathology. 04/19/2019-urine drug screen at the time of admission came back positive for amphetamines. Altered mental status/toxic encephalopathy most likely secondary to drug use. Repeat CT head done yesterday is negative for acute changes. He is moving upper and lower extremities without any problem he is still not responding to the commands and not spontaneously opening the eyes. 04/20/2019-urine drug screen is positive for amphetamines toxic encephalopathy most likely secondary to drug overdose in association with acute respiratory failure with hypoxia requiring intubation. 04/21/2019-urine drug screen is positive for amphetamines and toxic e ncephalopathy most likely secondary to substance use. 04/22/2019-alert awake communicating well following the commands. Toxic encephalopathy most likely secondary to drug overdose is resolved. 04/24/2019-toxic encephalopathy secondary to methamphetamine use resolved. Alert and awake communicating well. (3) Suicidal ideation Is this a current diagnosis for this admission?: Yes Plan: He will be reevaluated by psych when he gets extubated. Family did say that he had suicidal ideations at home. He may need possible inpatient psych placement. 04/18/2019-patient was admitted for suicidal ideation presently intubated once he is extubated psych will reevaluate him. Patient may need inpatient psych placement. 04/20/2019-once patient is successfully extubated psych team will be contacted for recommendations. 04/22/2019-patient is under involuntary commitment and psych team is following the patient. He may need to go to inpatient psych facility. 04/23/2019-patient still under IVC and on restraints psych is following the patient most likely plan is to transfer him to inpatient psych facility. 04/24/2019-patient is still under IVC commitment family and the patient is requesting for placement in long-term psych facility. (4) Pneumonia Is this a current diagnosis for this admission?: Yes Plan: Sputum culture grew haemophilus influenzae and MSSA. Discontinue vancomycin and Zosyn. Switched to Rocephin. 04/16: Patient continues to have copious, very thick, yellowish secretions coming from the ET despite being on Rocephin. We will switch patient to Zosyn. Repeat sputum culture. 04/18/2019-repeat sputum cultures came back positive for MSSA. Presently on IV Zosyn and IV vancomycin was initiated today. Chest x-ray did not suggestive of any pneumonia. Patient may have aspiration pneumonia because of drug overdose. MSSA is the causative organism. 04/19/2019-sputum cultures positive for MSSA. Presently on IV Zosyn and IV Rocephin T-max is 99.5 plan is to continue the present management. 04/20/2019-sputum cultures and tracheal aspirate came back positive for MSSA and H. influenzae. Presently on Zosyn and IV Rocephin. Plan is to continue the present management T-max is 98.8. 04/21/2019-sputum cultures and tracheal aspirate came back positive for MSSA and H influenza presently on IV Zosyn and IV Rocephin T-max is 99.7 plan is to ext ubate him today and to continue to do the follow-up chest x-rays. 04/22/2019-sputum culture and tracheal aspirate showing MSSA and H influenza on IV Zosyn and IV Rocephin T-max is 99.5 today. Plan is to continue the present management and do the chest x-rays and PRN basis. 04/23/2019-sputum culture and tracheal aspirate showing MSSA and H. influenzae on IV Zosyn and IV Rocephin. T-max is 99.7. Plan is to continue to follow him closely. 04/24/2019-sputum culture and tracheal aspirate came back positive for MSSA and H. influenzae. Presently on Ancef for. T-max is 98.9. Stable. (5) Hypokalemia Is this a current diagnosis for this admission?: Yes (6) Tachycardia Is this a current diagnosis for this admission?: Yes Plan: 04/24/2019-patient has persistent tachycardia heart rate is in between 122 130. To start on metoprolol 50 mg p.o. twice daily tachycardia may be secondary to physical inactivity/physical deconditioning or underlying anxiety. - Time Time Spent with patient: 15-24 minutes Smoking Cessation Education: over 10 minutes Medications reviewed and adjusted accordingly: Yes Anticipated discharge: Other
[2019-04-24] MEDS ORDERED: METOPROLOL TARTRATE 50 MG TABLET PO ONE (11:30)
--- NOTE | 2019-04-24 15:49 | PSYCHOLOGICAL NOTE ---
Psych Note - Psych Note Date seen by psych provider: 04/24/19 Psych Note: Presenting Problem: ICU for OD. Was intubated for 10 days. Extubated 04/21/19. Stepped down to third floor. Patient sleeping. He seemed to have slow processing still, was not forth coming, did answer questions with close ended responses (no dialogue conversation) He said he did not recall the OD but also said it likely happened. He denied current SI. He admitted to SA. He denied TBI and MH HX. He denied previous MH hospitalizations. Concern for anoxia/hypoxia at this point. 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 Consulted with Dr. Garcia regarding the management and care of patient. Attending Hospitalist made aware of recommendations. Further recommendations: Talk slowly Use simple/short statements/questions Ask patient to repeat you for understanding
[2019-04-24] MEDS: METOPROLOL TARTRATE 50 MG TABLET PO SCH (21:35)
[2019-04-25] MEDS: CEFAZOLIN 2 GM/D5W RTU 2 GM/50 ML RTUPB IV SCH ×2 (00:16→05:12)
[2019-04-25] MEDS: HEPARIN SOD (PORCINE) 5,000 UNIT/ML 1 ML SYRINGE SUBCUT SCH ×3 (05:12→21:29)
[2019-04-25] MEDS: IPRATROPIUM/ALBUTEROL 0.5-2.5 MG/3 ML AMPUL NEB SCH ×3 (08:35→23:48)
[2019-04-25] MEDS: METOPROLOL TARTRATE 50 MG TABLET PO SCH ×2 (10:20→21:28)
[2019-04-25] MEDS: AMOXICILLIN TR/POT CLAVULANATE 500-125 MG TAB PO SCH ×2 (13:06→21:28)
--- NOTE | 2019-04-25 13:51 | PSYCHOLOGICAL NOTE ---
Psych Note - Psych Note Date seen by psych provider: 04/25/19 Psych Note: Presenting Problem: ICU for OD. Was intubated for 10 days. Extubated 04/21/19. Stepped down to third floor. Today patient was alert and oriented to self, person, place, time and current situation. He was using open ended responses and able to carry on dialogue conversation. he reported he had been off medications of Valium, Paxil and Metropolol since November (saw a provider in [place]) and restarted for about a week. He denied SA use. Collateral from father, Ramirez ([phone]) was that family has suspected long time drug use, he has stolen medications from sister and niece, he was despondent about interaction with sister, went to a friend's house that does not use drugs, friend left and when returned found patient unconscious with empty bottle of Valium. Father noted patient cannot return to his home and cannot go back to sister's home because patient was ugly verbally to sister and physically aggressive with niece. Father stated a month ago he gave patient $1000, patient disappeared for 4-5 days and r eturned with no money and nothing to show for it. Diagnosis: Polysubstance abuse Probable bipolar disorder due to long-term substance abuse Medication recommendations made by the psychiatric medical provider, Dr. Amparo MD., includes: Add Zyprexa 2.5MG twice a day for mood stabilization/impulse control Add Buspar 5MG twice a day for anxiety/calming effect/depression/sleep Impression/Plan: Recommendation to maintain IVC. Patient's story is very different from family collateral (Aunt Mandy, Sister, Father). He admitted to being off medications since November. He had a significant OD that resulted in intubation for 10 days. He was just medically cleared today so now can seek inpatient placement. Provided medication recommendations because if patient does not get accepted inpatient within next day or two will be discharged with plan of care. Consulted with Dr. Garcia regarding the management and care of patient. Attending hospitalist made aware of recommendations.
[2019-04-25] MEDS ORDERED: LORAZEPAM INJ 2 MG/1 ML VIAL IV PRN (19:13)
--- NOTE | 2019-04-25 19:27 | PDOC PROGRESS REPORT ---
Subjective Progress Note for:: 04/25/19 Subjective:: The patient is a 48-year-old male with past medical history of polysubstance abuse and depression who was admitted 04/11/2019 for acute respiratory failure with hypoxia requiring intubation after having been found unresponsive with heroin and syringes present seen. UDS was positive for benzodiazepines and amphetamines. Per family members this was an intentional overdose/suicide attempt with previous history of the same. Extubated 10 days later on 04/21/2019. Patient was seen on morning rounds. He was found resting in bed comfortably on room air. He reports that he is feeling well today, is fully alert and oriented x4, conversational and socially appropriate. He does engage with me, makes eye contact, and fully participates in conversation. However, he is noted to have an odd and slightly euphoric affect. He denies fever, chills, chest pain, palpitations, dyspnea, orthopnea, cough, abdominal pain, nausea vomiting and diarrhea. He reports good appetite. He does indicate that he has been ablating in the room without difficulty. He has no new questions or concerns at this time. No concerns per nursing. Reason For Visit: ACUTE MULTIPLE DRUG OVERDOSE Physical Exam Vital Signs: Temp Pulse Resp BP Pulse Ox 98.5 F 90 24 H 107/68 98 04/25/19 16:58 04/25/19 19:00 04/25/19 16:58 04/25/19 16:58 04/25/19 16:58 Intake & Output 04/24/19 04/25/19 04/26/19 06:59 06:59 06:59 Intake Total 318 918 50 Output Total 460 690 Balance -142 228 50 Weight 79.1 kg 79.2 kg General appearance: PRESENT: no acute distress, cooperative, well-developed, well-nourished Head exam: PRESENT: atraumatic, normocephalic Eye exam: PRESENT: conjunctiva pink, EOMI, PERRLA. ABSENT: scleral icterus Ear exam: PRESENT: normal external ear exam Mouth exam: PRESENT: moist, tongue midline Teeth exam: PRESENT: poor dentation Neck exam: ABSENT: carotid bruit, JVD, lymphadenopathy, thyromegaly Respiratory exam: PRESENT: clear to auscultation annie, symmetrical, unlabored. ABSENT: rales, rhonchi, wheezes Cardiovascular exam: PRESENT: RRR, +S1, +S2. ABSENT: diastolic murmur, rubs, systolic murmur Pulses: PRESENT: normal dorsalis pedis pul Vascular exam: PRESENT: normal capillary refill GI/Abdominal exam: PRESENT: normal bowel sounds, soft. ABSENT: distended, guarding, mass, organolmegaly, rebound, tenderness Rectal exam: PRESENT: deferred Extremities exam: PRESENT: full ROM. ABSENT: calf tenderness, clubbing, pedal edema Neurological exam: PRESENT: alert, awake, oriented to person, oriented to place, oriented to time, oriented to situation, CN II-XII grossly intact. ABSENT: motor sensory deficit Psychiatric exam: PRESENT: normal mood, unusual affect. ABSENT: homicidal ideation, suicidal ideation Skin exam: PRESENT: dry, intact, warm. ABSENT: cyanosis, rash Results Laboratory Results: 04/24/19 05:50 04/24/19 05:50 04/11/19 04/11/19 04/11/19 06:33 06:33 11:56 Creatine Kinase 187 H 146 CK-MB (CK-2) 2.47 Troponin I < 0.012 04/11/19 04/11/19 04/11/19 11:56 17:43 17:43 Creatine Kinase 116 CK-MB (CK-2) 1.86 1.37 Troponin I < 0.012 < 0.012 Impressions: Chest CT 04/14/19 00:00 IMPRESSION: Pleural effusions. Airspace disease in each lower lobe, atelectasis versus pneumonia. Head CT 04/18/19 00:00 IMPRESSION: No acute intracranial findings. Increasing sphenoid and ethmoid sinus fluid. EVIDENCE OF ACUTE STROKE: NO. Chest X-Ray 04/21/19 06:00 IMPRESSION: STABLE APPEARANCE OF THE CHEST. SUPPORT DEVICES UNCHANGED. Assessment and Plan - Diagnosis (1) Acute respiratory failure with hypoxia Is this a current diagnosis for this admission?: Yes Plan: Resolved. Secondary to polysubstance drug overdose. He was intubated on 04/11/2019; successfully extubated 04/21/2019. Currently maintaining oxygen saturations on room air. Lung sounds clear, afebrile, normal WBCs. Continue scheduled and as needed nebulizer treatment; will decrease frequency of scheduled nebs. Continue supplemental oxygen as needed; currently maintaining sats on room air. Incentive spirometer and flutter valve to bedside. (2) Pneumonia Is this a current diagnosis for this admission?: Yes Plan: Sputum culture positive for MSSA and H influenza. Initially treated with IV Zosyn and Rocephin x 8 days then switch to Ancef. Culture results demonstrate sensitivity to Augmentin. We will discontinue Ancef today and transition to p.o. Augmentin for completion of antibiotic therapy (6 additional days for a total 2-week course of therapy). Remaining management as above. (3) Polysubstance abuse Is this a current diagnosis for this admission?: Yes Plan: UDS at admission was positive for amphetamines and benzodiazepines; confirmation send out labs are also positive. Patient's family members indicate that he has a long-standing history of substance abuse. Mental health services and discharge planning are consulted. (4) Suicidal ideation Is this a current diagnosis for this admission?: Yes Plan: Family reports long-standing history of suicidal ideation and previous attempts at home. He reportedly indicated that he intended to overdose prior to being found down. Currently under IVC. Mental health services and discharge planning are consulted. He is medically cleared to discharge once mental health services have determined appropriate disposition (home with intensive outpatient follow-up versus inpatient psychiatric care close parentheses. (5) Tachycardia Is this a current diagnosis for this admission?: Yes Plan: Resolved. (6) Toxic encephalopathy Is this a current diagnosis for this admission?: Yes Plan: Resolved; secondary to polysubstance abuse/overdose. (7) Hypokalemia Is this a current diagnosis for this admission?: Yes Plan: Resolved. - Time Time Spent with patient: 35 or more minutes Medications reviewed and adjusted accordingly: Yes Anticipated discharge: Other - Inpatient Psychiatric Serivices Within: when bed available
[2019-04-25] MEDS: BUSPIRONE HCL 10 MG TABLET PO SCH (21:28)
[2019-04-25] MEDS: OLANZAPINE 2.5 MG TABLET PO SCH (21:28)
[2019-04-26] MEDS: HEPARIN SOD (PORCINE) 5,000 UNIT/ML 1 ML SYRINGE SUBCUT SCH ×3 (05:17→21:17)
[2019-04-26] MEDS: AMOXICILLIN TR/POT CLAVULANATE 500-125 MG TAB PO SCH ×3 (05:17→21:18)
[2019-04-26] MEDS: IPRATROPIUM/ALBUTEROL 0.5-2.5 MG/3 ML AMPUL NEB SCH (08:47)
[2019-04-26] MEDS: OLANZAPINE 2.5 MG TABLET PO SCH ×2 (10:46→21:18)
[2019-04-26] MEDS: METOPROLOL TARTRATE 50 MG TABLET PO SCH ×2 (10:46→21:18)
[2019-04-26] MEDS: BUSPIRONE HCL 10 MG TABLET PO SCH ×2 (10:46→21:18)
[2019-04-26] MEDS ORDERED: IPRATROPIUM/ALBUTEROL 0.5-2.5 MG/3 ML AMPUL NEB PRN (15:56)
--- NOTE | 2019-04-26 15:58 | PDOC PROGRESS REPORT ---
Subjective Progress Note for:: 04/26/19 Subjective:: The patient is a 48-year-old male with past medical history of polysubstance abuse and depression who was admitted 04/11/2019 for acute respiratory failure with hypoxia requiring intubation after having been found unresponsive with heroin and syringes present seen. UDS was positive for benzodiazepines and amphetamines. Per family members this was an intentional overdose/suicide attempt with previous history of the same. Extubated 10 days later on 04/21/2019. Patient was seen on morning rounds. He was found resting in bed comfortably on room air. He reports that he is feeling well today, is fully alert and oriented x4, conversational and socially appropriate. He continues to have an odd and slightly euphoric affect. He denies fever, chills, chest pain, palpitations, dyspnea, orthopnea, cough, abdominal pain, nausea vomiting and diarrhea. He reports good appetite. He has no new questions or concerns at this time. No concerns per nursing. Reason For Visit: ACUTE MULTIPLE DRUG OVERDOSE Physical Exam Vital Signs: Temp Pulse Resp BP Pulse Ox 98.3 F 89 16 116/68 98 04/26/19 11:47 04/26/19 11:47 04/26/19 11:47 04/26/19 11:47 04/26/19 11:47 Intake & Output 04/25/19 04/26/19 04/27/19 06:59 06:59 06:59 Intake Total 918 350 480 Output Total 690 Balance 228 350 480 Weight 79.2 kg 79 kg General appearance: PRESENT: no acute distress, cooperative, well-developed, well-nourished Head exam: PRESENT: atraumatic, normocephalic Eye exam: PRESENT: conjunctiva pink, EOMI, PERRLA. ABSENT: scleral icterus Ear exam: PRESENT: normal external ear exam Mouth exam: PRESENT: moist, tongue midline Teeth exam: PRESENT: poor dentation Neck exam: ABSENT: carotid bruit, JVD, lymphadenopathy, thyromegaly Respiratory exam: PRESENT: clear to auscultation annie, symmetrical, unlabored. ABSENT: rales, rhonchi, wheezes Cardiovascular exam: PRESENT: RRR, +S1, +S2. ABSENT: diastolic murmur, rubs, systolic murmur Pulses: PRESENT: normal dorsalis pedis pul Vascular exam: PRESENT: normal capillary refill GI/Abdominal exam: PRESENT: normal bowel sounds, soft. ABSENT: distended, guarding, mass, organolmegaly, rebound, tenderness Rectal exam: PRESENT: deferred Extremities exam: PRESENT: full ROM. ABSENT: calf tenderness, clubbing, pedal edema Musculoskeletal exam: PRESENT: ambulatory Neurological exam: PRESENT: alert, awake, oriented to person, oriented to place, oriented to time, oriented to situation, CN II-XII grossly intact. ABSENT: motor sensory deficit Psychiatric exam: PRESENT: normal mood, unusual affect. ABSENT: homicidal ideation, suicidal ideation Skin exam: PRESENT: dry, intact, warm. ABSENT: cyanosis, rash Results Laboratory Results: 04/24/19 05:50 04/24/19 05:50 04/11/19 04/11/19 04/11/19 06:33 06:33 11:56 Creatine Kinase 187 H 146 CK-MB (CK-2) 2.47 Troponin I < 0.012 04/11/19 04/11/19 04/11/19 11:56 17:43 17:43 Creatine Kinase 116 CK-MB (CK-2) 1.86 1.37 Troponin I < 0.012 < 0.012 Impressions: Chest CT 04/14/19 00:00 IMPRESSION: Pleural effusions. Airspace disease in each lower lobe, atelectasis versus pneumonia. Head CT 04/18/19 00:00 IMPRESSION: No acute intracranial findings. Increasing sphenoid and ethmoid sinus fluid. EVIDENCE OF ACUTE STROKE: NO. Chest X-Ray 04/21/19 06:00 IMPRESSION: STABLE APPEARANCE OF THE CHEST. SUPPORT DEVICES UNCHANGED. Assessment and Plan - Diagnosis (1) Acute respiratory failure with hypoxia Is this a current diagnosis for this admission?: Yes Plan: Resolved. Secondary to polysubstance drug overdose. He was intubated on 04/11/2019; successfully extubated 04/21/2019. Currently maintaining oxygen saturations on room air. Lung sounds clear, afebrile, normal WBCs. Continue as needed nebulizer treatment. Continue supplemental oxygen as needed; currently maintaining sats on room air. Incentive spirometer and flutter valve to bedside. (2) Pneumonia Is this a current diagnosis for this admission?: Yes Plan: Sputum culture positive for MSSA and H influenza. Initially treated with IV Zosyn and Rocephin x 8 days then switch to Ancef. Culture results demonstrate sensitivity to Augmentin. Discontinue Ancef yesterday. Have transitioned to p.o. Augmentin for completion of antibiotic therapy; Day #2 of 6 (for a total 2-week course of therapy). Remaining management as above. (3) Polysubstance abuse Is this a current diagnosis for this admission?: Yes Plan: UDS at admission was positive for amphetamines and benzodiazepines; confirmation send out labs are also positive. Patient's family members indicate that he has a long-standing history of substance abuse. Mental health services and discharge planning are consulted. (4) Suicidal ideation Is this a current diagnosis for this admission?: Yes Plan: Family reports long-standing history of suicidal ideation and previous attempts at home. He reportedly indicated that he intended to overdose prior to being found down. Currently under IVC. Mental health services and discharge planning are consulted. He is medically cleared to discharge. Mental health services are currently seeking inpatient psychiatric placement. (5) Tachycardia Is this a current diagnosis for this admission?: Yes Plan: Resolved. (6) Toxic encephalopathy Is this a current diagnosis for this admission?: Yes Plan: Resolved; secondary to polysubstance abuse/overdose. (7) Hypokalemia Is this a current diagnosis for this admission?: Yes Plan: Resolved. - Time Time Spent with patient: 15-24 minutes Medications reviewed and adjusted accordingly: Yes Anticipated discharge: Other - Inpatient psychiatric care Within: when bed available
--- NOTE | 2019-04-26 16:33 | PSYCHOLOGICAL NOTE ---
Psych Note - Psych Note Date seen by psych provider: 04/26/19 Time seen by psych provider: 11:00 Psych Note: Presenting Problem: ICU for suspected intentional OD. Was intubated for 10 days. Extubated 04/21/19. Stepped down to third floor. Check-in conducted with patient Patient states that he had been in a coma for 10 days that was medically induced. He continues to report that the doctors do not know what was wrong with him. When clinician explained patient's actual presentation after overdose, patient attempts to redirect conversation. Patient reports that he has been off his medications since November and feels that his meds may not have been working however attempts to deny intentional overdose. Patient also denies history of substance abuse. Patient reports that he does not like the "drug culture." Patient is demonstrating very little insight, attempts to minimize and redirect when asked if he intentionally overdosed. Clinician notes patient did previously admitted to intentional overdose. Chart review: Clinician notes that earlier reports indicated it was believed the patient overdosed on heroin; however, toxicology screening indicates the patient did not have opiates in his system. He was positive for Nordiazepam which correlates w ith reports by the patient's sister reporting concern he took his prescription Valium that he picked up approximately 3 days before his overdose. Patient was also positive for Oxazepam, amphetamines and methamphetamines. Diagnosis: Intentional Overdose Probable bipolar disorder Polysubstance abuse Medication recommendations made by the psychiatric medical provider, Dr. Amparo MD., includes: Add Zyprexa 2.5MG twice a day for mood stabilization/impulse control Add Buspar 5MG twice a day for anxiety/calming effect/depression/sleep Impression/Plan: Recommendation to maintain IVC. Patient's story is very different from family collateral (Aunt Mandy, Sister, Father). He admitted to being off medications since November. He had a significant OD that resulted in intubation for 10 days. Patient continues to demonstrate little insight into his current situation i.e. is adamant it was an accidental overdose but also denies substance abuse. Patient denies recreational use and then asked clinician how common it is to "get slipped something." There is concern that the patient made both suicidal and homicidal comments just days before his overdose. Medication recommendations have been provided; patient be re- evaluated. Dr. Garcia was consulted to care management this patient; attending physicians in agreement with recommendations and disposition.
[2019-04-27] MEDS: HEPARIN SOD (PORCINE) 5,000 UNIT/ML 1 ML SYRINGE SUBCUT SCH ×3 (05:12→21:28)
[2019-04-27] MEDS: AMOXICILLIN TR/POT CLAVULANATE 500-125 MG TAB PO SCH ×3 (05:12→21:28)
[2019-04-27] MEDS ORDERED: ACETAMINOPHEN 325 MG TABLET PO PRN (10:11)
[2019-04-27] MEDS: OLANZAPINE 2.5 MG TABLET PO SCH ×2 (10:19→21:28)
[2019-04-27] MEDS: METOPROLOL TARTRATE 50 MG TABLET PO SCH ×2 (10:19→21:28)
[2019-04-27] MEDS: BUSPIRONE HCL 10 MG TABLET PO SCH ×2 (10:21→21:28)
--- NOTE | 2019-04-27 19:14 | PDOC PROGRESS REPORT ---
Subjective Progress Note for:: 04/27/19 Subjective:: The patient is a 48-year-old male with past medical history of polysubstance abuse and depression who was admitted 04/11/2019 for acute respiratory failure with hypoxia requiring intubation after having been found unresponsive with heroin and syringes present seen. UDS was positive for benzodiazepines and amphetamines. Per family members this was an intentional overdose/suicide attempt with previous history of the same. Extubated 10 days later on 04/21/2019. Patient was seen on morning rounds. He was found resting in bed comfortably on room air. He reports that he is feeling well today, is fully alert and oriented x4, conversational and socially appropriate. He continues to have an odd and slightly euphoric affect. He denies fever, chills, chest pain, palpitations, dyspnea, orthopnea, cough, abdominal pain, nausea vomiting and diarrhea. He reports good appetite. He has no new questions or concerns at this time. No concerns per nursing. Reason For Visit: ACUTE MULTIPLE DRUG OVERDOSE Physical Exam Vital Signs: Temp Pulse Resp BP Pulse Ox 98.0 F 75 17 113/68 97 04/27/19 11:31 04/27/19 11:55 04/27/19 11:55 04/27/19 11:31 04/27/19 11:55 Intake & Output 04/26/19 04/27/19 04/28/19 06:59 06:59 06:59 Intake Total 350 2250 1200 Balance 350 2250 1200 Weight 79 kg 79.9 kg General appearance: PRESENT: no acute distress, well-developed, well-nourished Head exam: PRESENT: atraumatic, normocephalic Eye exam: PRESENT: conjunctiva pink, EOMI, PERRLA. ABSENT: scleral icterus Ear exam: PRESENT: normal external ear exam Mouth exam: PRESENT: moist, tongue midline Teeth exam: PRESENT: poor dentation Neck exam: ABSENT: carotid bruit, JVD, lymphadenopathy, thyromegaly Respiratory exam: PRESENT: clear to auscultation annie. ABSENT: rales, rhonchi, wheezes Cardiovascular exam: PRESENT: RRR. ABSENT: diastolic murmur, rubs, systolic murmur Pulses: PRESENT: normal dorsalis pedis pul Vascular exam: PRESENT: normal capillary refill GI/Abdominal exam: PRESENT: normal bowel sounds, soft. ABSENT: distended, guarding, mass, organolmegaly, rebound, tenderness Rectal exam: PRESENT: deferred Extremities exam: PRESENT: full ROM. ABSENT: calf tenderness, clubbing, pedal edema Neurological exam: PRESENT: alert, awake, oriented to person, oriented to place, oriented to time, oriented to situation, CN II-XII grossly intact. ABSENT: motor sensory deficit Psychiatric exam: PRESENT: normal mood, unusual affect. ABSENT: homicidal ideation, suicidal ideation Focused psych exam: PRESENT: euphoric Skin exam: PRESENT: dry, intact, warm. ABSENT: cyanosis, rash Results Laboratory Results: 04/24/19 05:50 04/24/19 05:50 04/11/19 04/11/19 04/11/19 06:33 06:33 11:56 Creatine Kinase 187 H 146 CK-MB (CK-2) 2.47 Troponin I < 0.012 04/11/19 04/11/19 04/11/19 11:56 17:43 17:43 Creatine Kinase 116 CK-MB (CK-2) 1.86 1.37 Troponin I < 0.012 < 0.012 Impressions: Chest CT 04/14/19 00:00 IMPRESSION: Pleural effusions. Airspace disease in each lower lobe, atelectasis versus pneumonia. Head CT 04/18/19 00:00 IMPRESSION: No acute intracranial findings. Increasing sphenoid and ethmoid sinus fluid. EVIDENCE OF ACUTE STROKE: NO. Chest X-Ray 04/21/19 06:00 IMPRESSION: STABLE APPEARANCE OF THE CHEST. SUPPORT DEVICES UNCHANGED. Assessment and Plan - Diagnosis (1) Acute respiratory failure with hypoxia Is this a current diagnosis for this admission?: Yes Plan: Resolved. Secondary to polysubstance drug overdose. He was intubated on 04/11/2019; successfully extubated 04/21/2019. Currently maintaining oxygen saturations on room air. Lung sounds clear, afebrile, normal WBCs. Continue as needed nebulizer treatment. Continue supplemental oxygen as needed; currently maintaining sats on room air. Incentive spirometer and flutter valve to bedside. (2) Pneumonia Is this a current diagnosis for this admission?: Yes Plan: Sputum culture positive for MSSA and H influenza. Initially treated with IV Zosyn and Rocephin x 8 days then switch to Ancef. Culture results demonstrate sensitivity to Augmentin. Have transitioned to p.o. Augmentin for completion of antibiotic therapy; Day #3 of 6 (for a total 2-week course of therapy). Remaining management as above. (3) Polysubstance abuse Is this a current diagnosis for this admission?: Yes Plan: UDS at admission was positive for amphetamines and benzodiazepines; confirmation send out labs are also positive. Patient's family members indicate that he has a long-standing history of substance abuse. Mental health services and discharge planning are consulted. (4) Suicidal ideation Is this a current diagnosis for this admission?: Yes Plan: Family reports long-standing history of suicidal ideation and previous attempts at home. He reportedly indicated that he intended to overdose prior to being found down. Currently under IVC. Mental health services and discharge planning are consulted. He is medically cleared to discharge. Mental health services are currently seeking inpatient psychiatric placement. (5) Tachycardia Is this a current diagnosis for this admission?: Yes Plan: Resolved. (6) Toxic encephalopathy Is this a current diagnosis for this admission?: Yes Plan: Resolved; secondary to polysubstance abuse/overdose. (7) Hypokalemia Is this a current diagnosis for this admission?: Yes Plan: Resolved. - Time Time Spent with patient: 15-24 minutes Medications reviewed and adjusted accordingly: Yes Anticipated discharge: Other - Inpatient psychiatric facility Within: when bed available - Plan Summary Plan Summary: Spoke with mental health services today; apparently there has been some concern from the inpatient psychiatric facilities about the patient's mob ility/independence following prolonged intubation. The patient is independently ambulatory, self feeds, and provides for all of his own ADLs. He is medically cleared for discharge without reservation. He does not require PT/OT/ST services. He does not require any additional nursing care at this time. The sole reason for the patient remaining under admission status is to allow for mental health services to attempt to find inpatient psychiatric placement for his mental health needs.
[2019-04-28] MEDS: HEPARIN SOD (PORCINE) 5,000 UNIT/ML 1 ML SYRINGE SUBCUT SCH ×3 (05:19→21:12)
[2019-04-28] MEDS: AMOXICILLIN TR/POT CLAVULANATE 500-125 MG TAB PO SCH ×3 (05:19→21:15)
[2019-04-28] MEDS: BUSPIRONE HCL 10 MG TABLET PO SCH ×2 (09:41→21:15)
[2019-04-28] MEDS: OLANZAPINE 2.5 MG TABLET PO SCH ×2 (09:41→21:15)
[2019-04-28] MEDS: METOPROLOL TARTRATE 50 MG TABLET PO SCH ×2 (09:41→21:15)
--- NOTE | 2019-04-28 13:18 | PDOC PROGRESS REPORT ---
Addendum entered and electronically signed by MARIA MACDONALD NP-C 04/29/19 09:13: Provider Note Provider Note: Addendum regarding patient's medical stability: Patient is medically stable for discharge; he does not have any active medical concerns. His only prn medication administered in >5 days is oral tylenol. He does have a saline well in place; no running fluids. This is standard hospital protocol; all admitted patients retain IV access until discharge. The patient is independently ambulatory, self feeds, and provides for all of his own ADLs. He does not require PT/OT/ST services. He does not require any additional nursing care at this time. The sole reason for the patient remaining under admission status is to allow for mental health services to attempt to find inpatient psychiatric placement for his mental health needs. He is medically cleared for discharge without reservation. Original Note: Subjective Progress Note for:: 04/28/19 Subjective:: The patient is a 48-year-old male with past medical history of polysubstance abuse and depression who was admitted 04/11/2019 for acute respiratory failure wi th hypoxia requiring intubation after having been found unresponsive with heroin and syringes present seen. UDS was positive for benzodiazepines and amphetamines. Per family members this was an intentional overdose/suicide attempt with previous history of the same. Extubated 10 days later on 04/21/2019. Patient was seen on morning rounds. He was found resting in bed comfortably on room air. He reports that he is feeling well today, is fully alert and oriented x4, conversational and socially appropriate. He denies fever, chills, chest pain, palpitations, dyspnea, orthopnea, cough, abdominal pain, nausea vomiting and diarrhea. He reports good appetite. He has no new questions or concerns at this time. No concerns per nursing. Reason For Visit: ACUTE MULTIPLE DRUG OVERDOSE Physical Exam Vital Signs: Temp Pulse Resp BP Pulse Ox 98.1 F 83 16 100/77 93 04/28/19 07:29 04/28/19 07:29 04/28/19 07:29 04/28/19 07:29 04/28/19 09:57 Intake & Output 04/27/19 04/28/19 04/29/19 06:59 06:59 06:59 Intake Total 2250 1200 Balance 2250 1200 Weight 79.9 kg 80.7 kg General appearance: PRESENT: no acute distress, well-developed, well-nourished Head exam: PRESENT: atraumatic, normocephalic Eye exam: PRESENT: conjunctiva pink, EOMI, PERRLA. ABSENT: scleral icterus Ear exam: PRESENT: normal external ear exam Mouth exam: PRESENT: moist, tongue midline Teeth exam: PRESENT: poor dentation Neck exam: ABSENT: carotid bruit, JVD, lymphadenopathy, thyromegaly Respiratory exam: PRESENT: clear to auscultation annie, symmetrical, unlabored. ABSENT: rales, rhonchi, wheezes Cardiovascular exam: PRESENT: RRR. ABSENT: diastolic murmur, rubs, systolic murmur Pulses: PRESENT: normal dorsalis pedis pul Vascular exam: PRESENT: normal capillary refill Extremities exam: PRESENT: full ROM. ABSENT: calf tenderness, clubbing, pedal edema Musculoskeletal exam: PRESENT: ambulatory Neurological exam: PRESENT: alert, awake, oriented to person, oriented to place, oriented to time, oriented to situation, CN II-XII grossly intact. ABSENT: motor sensory deficit Psychiatric exam: PRESENT: appropriate affect, normal mood, unusual affect. ABSENT: homicidal ideation, suicidal ideation Skin exam: PRESENT: dry, intact, warm. ABSENT: cyanosis, rash Results Laboratory Results: 04/24/19 05:50 04/24/19 05:50 04/11/19 04/11/19 04/11/19 06:33 06:33 11:56 Creatine Kinase 187 H 146 CK-MB (CK-2) 2.47 Troponin I < 0.012 04/11/19 04/11/19 04/11/19 11:56 17:43 17:43 Creatine Kinase 116 CK-MB (CK-2) 1.86 1.37 Troponin I < 0.012 < 0.012 Impressions: Chest CT 04/14/19 00:00 IMPRESSION: Pleural effusions. Airspace disease in each lower lobe, atelectasis versus pneumonia. Head CT 04/18/19 00:00 IMPRESSION: No acute intracranial findings. Increasing sphenoid and ethmoid sinus fluid. EVIDENCE OF ACUTE STROKE: NO. Chest X-Ray 04/21/19 06:00 IMPRESSION: STABLE APPEARANCE OF THE CHEST. SUPPORT DEVICES UNCHANGED. Assessment and Plan - Diagnosis (1) Acute respiratory failure with hypoxia Is this a current diagnosis for this admission?: Yes Plan: Resolved. Secondary to polysubstance drug overdose. He was intubated on 04/11/2019; successfully extubated 04/21/2019. Currently maintaining oxygen saturations on room air. Lung sounds clear, afebrile, normal WBCs. Continue as needed nebulizer treatment. Incentive spirometer and flutter valve to bedside. (2) Pneumonia Is this a current diagnosis for this admission?: Yes Plan: Sputum culture positive for MSSA and H influenza. Initially treated with IV Zosyn and Rocephin x 8 days then switch to Ancef. Culture results demonstrate sensitivity to Augmentin. Have transitioned to p.o. Augmentin for completion of antibiotic therapy; Day #4 of 6 (for a total 2-week course of therapy). Remaining management as above. (3) Polysubstance abuse Is this a current diagnosis for this admission?: Yes Plan: UDS at admission was positive for amphetamines and benzodiazepines; confirmation send out labs are also positive. Patient's family members indicate that he has a long-standing history of substance abuse. Mental health services and discharge planning are consulted. (4) Suicidal ideation Is this a current diagnosis for this admission?: Yes Plan: Family reports long-standing history of suicidal ideation and previous attempts at home. He reportedly indicated that he intended to overdose prior to being found down. Currently under IVC. Mental health services and discharge planning are consulted. He is medically cleared to discharge. Mental health services are currently seeking inpatient psychiatric placement. (5) Tachycardia Is this a current diagnosis for this admission?: Yes Plan: Resolved. (6) Toxic encephalopathy Is this a current diagnosis for this admission?: Yes Plan: Resolved; secondary to polysubstance abuse/overdose. (7) Hypokalemia Is this a current diagnosis for this admission?: Yes Plan: Resolved. - Time Time Spent with patient: Less than 15 minutes Medications reviewed and adjusted accordingly: Yes Anticipated discharge: Other - Inpatient psychiatric facillity Within: when bed available - Plan Summary Plan Summary: Spoke with mental health services yesterday; apparently there had been some concern from the inpatient psychiatric facilities about the patient's mobility/independence following prolonged intubation. The patient is independently ambulatory, self feeds, and provides for all of his own ADLs. He is medically cleared for discharge without reservation. He does not require PT/OT/ST services. He does not require any additional nursing care at this time. The sole reason for the patient remaining under admission status is to allow for mental health services to attempt to find inpatient psychiatric placement for his mental health needs.
[2019-04-29] MEDS: HEPARIN SOD (PORCINE) 5,000 UNIT/ML 1 ML SYRINGE SUBCUT SCH ×3 (05:40→22:04)
[2019-04-29] MEDS: AMOXICILLIN TR/POT CLAVULANATE 500-125 MG TAB PO SCH ×3 (05:42→22:12)
[2019-04-29] MEDS: METOPROLOL TARTRATE 50 MG TABLET PO SCH ×2 (10:01→22:12)
[2019-04-29] MEDS: OLANZAPINE 2.5 MG TABLET PO SCH ×2 (10:01→22:12)
[2019-04-29] MEDS: BUSPIRONE HCL 10 MG TABLET PO SCH ×2 (10:02→22:12)
--- NOTE | 2019-04-29 15:53 | PDOC PROGRESS REPORT ---
Subjective Progress Note for:: 04/29/19 Subjective:: The patient is a 48-year-old male with past medical history of polysubstance abuse and depression who was admitted 04/11/2019 for acute respiratory failure with hypoxia requiring intubation after having been found unresponsive with drug paraphernalia nearby. UDS was positive for benzodiazepines and amphetamines. Per family members this was an intentional overdose/suicide attempt with previous history of the same. Extubated 10 days later on 04/21/2019. Patient was seen on morning rounds. He was found resting in bed comfortably on room air. He reports that he is feeling well today, is fully alert and oriented x4, conversational and socially appropriate. He denies fever, chills, chest pain, palpitations, dyspnea, orthopnea, cough, abdominal pain, nausea vomiting and diarrhea. He reports good appetite. He has no new questions or concerns at this time. No concerns per nursing. Patient is medically stable for discharge; he does not have any active medical concerns. His only prn medication administered in >5 days is oral tylenol. He does have a saline well in place; no running fluids. This is standard hospital protocol; all admitted patients retain IV access until discharge. The patient is independently ambulatory, self feeds, and provides for all of his own ADLs. He does not require PT/OT/ST services. He does not require any additional nursing care at this time. The sole reason for the patient remaining under admission status is to allow for mental health services to attempt to find inpatient psychiatric placement for his mental health needs. He is medically cleared for discharge without reservation. Reason For Visit: ACUTE MULTIPLE DRUG OVERDOSE Physical Exam Vital Signs: Temp Pulse Resp BP Pulse Ox 97.7 F 85 15 121/66 100 04/29/19 08:00 04/29/19 08:00 04/29/19 08:00 04/29/19 08:00 04/29/19 08:00 Intake & Output 04/28/19 04/29/19 04/30/19 06:59 06:59 06:59 Intake Total 1200 1284 Balance 1200 1284 Weight 80.7 kg 79.5 kg General appearance: PRESENT: no acute distress, cooperative, well-developed, well-nourished Head exam: PRESENT: atraumatic, normocephalic Eye exam: PRESENT: conjunctiva pink, EOMI, PERRLA. ABSENT: scleral icterus Ear exam: PRESENT: normal external ear exam Mouth exam: PRESENT: moist, tongue midline Neck exam: ABSENT: carotid bruit, JVD, lymphadenopathy, thyromegaly Respiratory exam: PRESENT: clear to auscultation annie, symmetrical, unlabored. ABSENT: rales, rhonchi, wheezes Cardiovascular exam: PRESENT: RRR. ABSENT: diastolic murmur, rubs, systolic murmur Pulses: PRESENT: normal dorsalis pedis pul Vascular exam: PRESENT: normal capillary refill GI/Abdominal exam: PRESENT: normal bowel sounds, soft. ABSENT: distended, guarding, mass, organolmegaly, rebound, tenderness Rectal exam: PRESENT: deferred Extremities exam: PRESENT: full ROM. ABSENT: calf tenderness, clubbing, pedal edema Musculoskeletal exam: PRESENT: ambulatory Neurological exam: PRESENT: alert, awake, oriented to person, oriented to place, oriented to time, oriented to situation, CN II-XII grossly intact. ABSENT: motor sensory deficit Psychiatric exam: PRESENT: appropriate affect, normal mood. ABSENT: homicidal ideation, suicidal ideation Skin exam: PRESENT: dry, intact, warm. ABSENT: cyanosis, rash Results Laboratory Results: 04/24/19 05:50 04/24/19 05:50 04/11/19 04/11/19 04/11/19 06:33 06:33 11:56 Creatine Kinase 187 H 146 CK-MB (CK-2) 2.47 Troponin I < 0.012 04/11/19 04/11/19 04/11/19 11:56 17:43 17:43 Creatine Kinase 116 CK-MB (CK-2) 1.86 1.37 Troponin I < 0.012 < 0.012 Impressions: Chest CT 04/14/19 00:00 IMPRESSION: Pleural effusions. Airspace disease in each lower lobe, atelectasis versus pneumonia. Head CT 04/18/19 00:00 IMPRESSION: No acute intracranial findings. Increasing sphenoid and ethmoid sinus fluid. EVIDENCE OF ACUTE STROKE: NO. Chest X-Ray 04/21/19 06:00 IMPRESSION: STABLE APPEARANCE OF THE CHEST. SUPPORT DEVICES UNCHANGED. Assessment and Plan - Diagnosis (1) Acute respiratory failure with hypoxia Is this a current diagnosis for this admission?: Yes Plan: Resolved. Secondary to polysubstance drug overdose. He was intubated on 04/11/2019; successfully extubated 04/21/2019. Currently maintaining oxygen saturations on room air. Lung sounds clear, afebrile, normal WBCs. Continue as needed nebulizer treatment. Incentive spirometer and flutter valve to bedside. (2) Pneumonia Is this a current diagnosis for this admission?: Yes Plan: Sputum culture positive for MSSA and H influenza. Initially treated with IV Zosyn and Rocephin x 8 days then switch to Ancef. Culture results demonstrate sensitivity to Augmentin. Have transitioned to p.o. Augmentin for completion of antibiotic therapy; Day #5 of 6 (for a total 2-week course of therapy). Remaining management as above. (3) Polysubstance abuse Is this a current diagnosis for this admission?: Yes Plan: UDS at admission was positive for amphetamines and benzodiazepines; confirmation send out labs are also positive. Patient's family members indicate that he has a long-standing history of substance abuse. Mental health services and discharge planning are consulted. (4) Suicidal ideation Is this a current diagnosis for this admission?: Yes Plan: Family reports long-standing history of suicidal ideation and previous attempts at home. He reportedly indicated that he intended to overdose prior to being found down. Currently under IVC. Mental health services and discharge planning are consulted. He is medically cleared to discharge. Mental health services are currently seeking inpatient psychiatric placement. (5) Tachycardia Is this a current diagnosis for this admission?: Yes Plan: Resolved. (6) Toxic encephalopathy Is this a current diagnosis for this admission?: Yes Plan: Resolved; secondary to polysubstance abuse/overdose. (7) Hypokalemia Is this a current diagnosis for this admission?: Yes Plan: Resolved. - Time Time Spent with patient: 15-24 minutes Medications reviewed and adjusted accordingly: Yes Anticipated discharge: Other - Inpatient psychiatric facility Within: when bed available - Plan Summary Plan Summary: Patient is medically cleared for discharge to home versus inpatient psychiatric facility at discretion of mental health provider (currently under IVC status).
[2019-04-30] MEDS: HEPARIN SOD (PORCINE) 5,000 UNIT/ML 1 ML SYRINGE SUBCUT SCH ×3 (06:51→21:19)
[2019-04-30] MEDS: AMOXICILLIN TR/POT CLAVULANATE 500-125 MG TAB PO SCH ×3 (06:52→21:19)
[2019-04-30] MEDS: BUSPIRONE HCL 10 MG TABLET PO SCH ×2 (09:26→21:18)
[2019-04-30] MEDS: METOPROLOL TARTRATE 50 MG TABLET PO SCH ×2 (09:28→21:18)
[2019-04-30] MEDS: OLANZAPINE 2.5 MG TABLET PO SCH ×2 (09:28→21:18)
[2019-04-30] MEDS ORDERED: CLONIDINE 0.2 MG/24 HR PATCH.TDWK TD SCH (10:00)
--- NOTE | 2019-04-30 13:17 | PDOC PROGRESS REPORT ---
Subjective Progress Note for:: 04/30/19 Subjective:: The patient is a 48-year-old male with past medical history of polysubstance abuse and depression who was admitted 04/11/2019 for acute respiratory failure with hypoxia requiring intubation after having been found unresponsive with drug paraphernalia nearby. UDS was positive for benzodiazepines and amphetamines. Per family members this was an intentional overdose/suicide attempt with previous history of the same. Extubated 10 days later on 04/21/2019. Patient was seen on morning rounds. He was found resting in bed comfortably on room air. He reports that he is feeling well today, is fully alert and oriented x4, conversational and socially appropriate. He denies fever, chills, chest pain, palpitations, dyspnea, orthopnea, cough, abdominal pain, nausea vomiting and diarrhea. He reports good appetite. He has no new questions or concerns at this time. We did discuss the renewal of his IVC status; the patient was calm and appreciated of the information. He did indicate that he was not aware that he will had been IVC initially. He was encouraged to speak frankly with mental health team so that they can be of assistance in finding the best disposition. No concerns per nursing. Patient is medically stable for discharge; he does not have any active medical concerns. His only prn medication administered in >5 days is oral tylenol. He does have a saline well in place; no running fluids. This is standard hospital protocol; all admitted patients retain IV access until discharge. The patient is independently ambulatory, self feeds, and provides for all of his own ADLs. He does not require PT/OT/ST services. He does not require any additional nursing care at this time. The sole reason for the patient remaining under admission status is to allow for mental health services to attempt to find inpatient psychiatric placement for his mental health needs. He is medically cleared for discharge without reservation. Reason For Visit: ACUTE MULTIPLE DRUG OVERDOSE Physical Exam Vital Signs: Temp Pulse Resp BP Pulse Ox 97.9 F 85 16 121/65 8 L 04/30/19 08:16 04/30/19 08:16 04/30/19 08:16 04/30/19 08:16 04/30/19 08:16 Intake & Output 04/29/19 04/30/19 05/01/19 06:59 06:59 06:59 Intake Total 1284 2630 Balance 1284 2630 Weight 79.5 kg 80.1 kg General appearance: PRESENT: no acute distress, well-developed, well-nourished Head exam: PRESENT: atraumatic, normocephalic Eye exam: PRESENT: conjunctiva pink, EOMI, PERRLA. ABSENT: scleral icterus Ear exam: PRESENT: normal external ear exam Mouth exam: PRESENT: moist, tongue midline Neck exam: ABSENT: carotid bruit, JVD, lymphadenopathy, thyromegaly Respiratory exam: PRESENT: clear to auscultation annie. ABSENT: rales, rhonchi, wheezes Cardiovascular exam: PRESENT: RRR. ABSENT: diastolic murmur, rubs, systolic murmur Pulses: PRESENT: normal dorsalis pedis pul Vascular exam: PRESENT: normal capillary refill GI/Abdominal exam: PRESENT: normal bowel sounds, soft. ABSENT: distended, guarding, mass, organolmegaly, rebound, tenderness Rectal exam: PRESENT: deferred Extremities exam: PRESENT: full ROM. ABSENT: calf tenderness, clubbing, pedal edema Neurological exam: PRESENT: alert, awake, oriented to person, oriented to place, oriented to time, oriented to situation, CN II-XII grossly intact. ABSENT: motor sensory deficit Psychiatric exam: PRESENT: appropriate affect, normal mood. ABSENT: homicidal ideation, suicidal ideation Skin exam: PRESENT: dry, intact, warm. ABSENT: cyanosis, rash Results Laboratory Results: 04/24/19 05:50 04/24/19 05:50 04/11/19 04/11/19 04/11/19 06:33 06:33 11:56 Creatine Kinase 187 H 146 CK-MB (CK-2) 2.47 Troponin I < 0.012 04/11/19 04/11/19 04/11/19 11:56 17:43 17:43 Creatine Kinase 116 CK-MB (CK-2) 1.86 1.37 Troponin I < 0.012 < 0.012 Impressions: Chest CT 04/14/19 00:00 IMPRESSION: Pleural effusions. Airspace disease in each lower lobe, atelectasis versus pneumonia. Head CT 04/18/19 00:00 IMPRESSION: No acute intracranial findings. Increasing sphenoid and ethmoid sinus fluid. EVIDENCE OF ACUTE STROKE: NO. Chest X-Ray 04/21/19 06:00 IMPRESSION: STABLE APPEARANCE OF THE CHEST. SUPPORT DEVICES UNCHANGED. Assessment and Plan - Diagnosis (1) Acute respiratory failure with hypoxia Is this a current diagnosis for this admission?: Yes Plan: Resolved. Secondary to polysubstance drug overdose. He was intubated on 04/11/2019; successfully extubated 04/21/2019. Currently maintaining oxygen saturations on room air. Lung sounds clear, afebrile, normal WBCs. Continue as needed nebulizer treatment. Incentive spirometer and flutter valve to bedside. (2) Pneumonia Is this a current diagnosis for this admission?: Yes Plan: Resolved. Sputum culture positive for MSSA and H influenza. Initially treated with IV Zosyn and Rocephin x 8 days then switch to Ancef. Culture results demonstrate sensitivity to Augmentin. Patient has completed full course of antibiotic therapy. (3) Polysubstance abuse Is this a current diagnosis for this admission?: Yes Plan: UDS at admission was positive for amphetamines and benzodiazepines; confirmation send out labs are also positive. Patient's family members indicate that he has a long-standing history of substance abuse. Mental health services and discharge planning are consulted. (4) Suicidal ideation Is this a current diagnosis for this admission?: Yes Plan: Family reports long-standing history of suicidal ideation and previous attempts at home. He reportedly indicated that he intended to overdose prior to being found down. Currently under IVC. Mental health services and discharge planning are consulted. He is medically cleared to discharge. Mental health services are currently seeking inpatient psychiatric placement. (5) Tachycardia Is this a current diagnosis for this admission?: Yes Plan: Resolved. (6) Toxic encephalopathy Is this a current diagnosis for this admission?: Yes Plan: Resolved; secondary to polysubstance abuse/overdose. (7) Hypokalemia Is this a current diagnosis for this admission?: Yes Plan: Resolved. - Time Time Spent with patient: 15-24 minutes - >50% spent in councilling Medications reviewed and adjusted accordingly: Yes Anticipated discharge: Other - Inpatient psychiatric care Within: when bed available
[2019-05-01] MEDS: HEPARIN SOD (PORCINE) 5,000 UNIT/ML 1 ML SYRINGE SUBCUT SCH ×3 (05:23→22:01)
[2019-05-01] MEDS: AMOXICILLIN TR/POT CLAVULANATE 500-125 MG TAB PO SCH ×3 (05:24→22:01)
[2019-05-01] MEDS: OLANZAPINE 2.5 MG TABLET PO SCH ×2 (09:35→22:04)
[2019-05-01] MEDS: METOPROLOL TARTRATE 50 MG TABLET PO SCH ×2 (09:35→22:01)
[2019-05-01] MEDS: BUSPIRONE HCL 10 MG TABLET PO SCH ×2 (09:35→22:04)
--- NOTE | 2019-05-01 11:15 | PSYCHOLOGICAL NOTE ---
Psych Note - Psych Note Date seen by psych provider: 04/30/19 Psych Note: Presenting Problem: Renewed IVC. OD which resulted in 10 intubation. Patient minimizing severity and not being open about drug use but starting to talk more. Continued placement efforts and spoke to attending hospitalist about medical clearance and her documentation of such. Diagnosis: Polysubstance abuse Probable Bipolar Disorder Due to long-term substance abuse Impression/Plan: Recommendation to maintain reinstated IVC and continuing seeking inpatient hospitalization. Consulted with Dr. Garcia regarding the management and care of patient. Attending Hospitalist aware of recommendations.
--- NOTE | 2019-05-01 13:20 | PDOC PROGRESS REPORT ---
Subjective Progress Note for:: 05/01/19 Subjective:: The patient is a 48-year-old male with past medical history of polysubstance abuse and depression who was admitted 04/11/2019 for acute respiratory failure with hypoxia requiring intubation after having been found unresponsive with drug paraphernalia nearby. UDS was positive for benzodiazepines and amphetamines. Per family members this was an intentional overdose/suicide attempt with previous history of the same. Extubated 10 days later on 04/21/2019. Patient is medically stable for discharge; he does not have any active medical concerns. His only prn medication administered in >5 days is oral tylenol. He does have a saline well in place; no running fluids. This is standard hospital protocol; all admitted patients retain IV access until discharge. The patient is independently ambulatory, self feeds, and provides for all of his own ADLs. He does not require PT/OT/ST services. He does not require any additional nursing care at this time. The sole reason for the patient remaining under admission status is to allow for mental health services to attempt to find inpatient psychiatric placement for his mental health needs. He is medically cleared for discharge without reservation. Patient was seen on morning rounds with father present. He is A&Ox4, conversational and socially appropriate. Denies fever, chest pain, dyspnea, cough, abdominal pain; reports good appetite. Asks for a "1 hour day pass" w/ father to get a haircut. Otherwise, he has no questions or concerns today. No concerns per nursing. Reason For Visit: ACUTE MULTIPLE DRUG OVERDOSE Physical Exam Vital Signs: Temp Pulse Resp BP Pulse Ox 98.4 F 87 19 116/68 99 05/01/19 07:55 05/01/19 07:55 05/01/19 07:55 05/01/19 07:55 05/01/19 07:55 Intake & Output 04/30/19 05/01/19 05/02/19 06:59 06:59 06:59 Intake Total 2630 1920 Balance 2630 1920 Weight 80.1 kg General appearance: PRESENT: no acute distress, well-developed, well-nourished - overweight Head exam: PRESENT: atraumatic, normocephalic Eye exam: PRESENT: conjunctiva pink, EOMI, PERRLA. ABSENT: scleral icterus Ear exam: PRESENT: normal external ear exam Mouth exam: PRESENT: moist, tongue midline Neck exam: ABSENT: carotid bruit, JVD, lymphadenopathy, thyromegaly Respiratory exam: PRESENT: clear to auscultation annie, symmetrical, unlabored. ABSENT: rales, rhonchi, wheezes Cardiovascular exam: PRESENT: RRR. ABSENT: diastolic murmur, rubs, systolic murmur Pulses: PRESENT: normal dorsalis pedis pul Vascular exam: PRESENT: normal capillary refill GI/Abdominal exam: PRESENT: normal bowel sounds, soft. ABSENT: distended, guarding, mass, organolmegaly, rebound, tenderness Rectal exam: PRESENT: deferred Extremities exam: PRESENT: full ROM. ABSENT: calf tenderness, clubbing, pedal edema Neurological exam: PRESENT: alert, awake, oriented to person, oriented to place, oriented to time, oriented to situation, CN II-XII grossly intact. ABSENT: motor sensory deficit Psychiatric exam: PRESENT: appropriate affect, normal mood. ABSENT: homicidal ideation, suicidal ideation Skin exam: PRESENT: dry, intact, warm. ABSENT: cyanosis, rash Results Laboratory Results: 04/24/19 05:50 04/24/19 05:50 04/11/19 04/11/19 04/11/19 06:33 06:33 11:56 Creatine Kinase 187 H 146 CK-MB (CK-2) 2.47 Troponin I < 0.012 04/11/19 04/11/19 04/11/19 11:56 17:43 17:43 Creatine Kinase 116 CK-MB (CK-2) 1.86 1.37 Troponin I < 0.012 < 0.012 Impressions: Chest CT 04/14/19 00:00 IMPRESSION: Pleural effusions. Airspace disease in each lower lobe, atelectasis versus pneumonia. Head CT 04/18/19 00:00 IMPRESSION: No acute intracranial findings. Increasing sphenoid and ethmoid sinus fluid. EVIDENCE OF ACUTE STROKE: NO. Chest X-Ray 04/21/19 06:00 IMPRESSION: STABLE APPEARANCE OF THE CHEST. SUPPORT DEVICES UNCHANGED. Assessment and Plan - Diagnosis (1) Acute respiratory failure with hypoxia Is this a current diagnosis for this admission?: Yes Plan: Resolved. Secondary to polysubstance drug overdose. He was intubated on 04/11/2019; successfully extubated 04/21/2019. Currently maintaining oxygen saturations on room air. Lung sounds clear, afebrile, normal WBCs. Incentive spirometer and flutter valve to bedside. (2) Pneumonia Is this a current diagnosis for this admission?: Yes Plan: Resolved. Sputum culture positive for MSSA and H influenza. Initially treated with IV Zosyn and Rocephin x 8 days then switch to Ancef. Culture results demonstrate sensitivity to Augmentin. Patient has completed full course of antibiotic therapy. (3) Polysubstance abuse Is this a current diagnosis for this admission?: Yes Plan: UDS at admission was positive for amphetamines and benzodiazepines; confirmation send out labs are also positive. Patient's family members indicate that he has a long-standing history of substance abuse. Mental health services and discharge planning are consulted. (4) Suicidal ideation Is this a current diagnosis for this admission?: Yes Plan: Family reports long-standing history of suicidal ideation and previous attempts at home. He reportedly indicated that he intended to overdose prior to being found down. Currently under IVC. Mental health services and discharge planning are consulted. He is medically cleared to discharge. Mental health services are currently seeking inpatient psychiatric placement. (5) Tachycardia Is this a current diagnosis for this admission?: Yes Plan: Resolved. (6) Toxic encephalopathy Is this a current diagnosis for this admission?: Yes Plan: Resolved; secondary to polysubstance abuse/overdose. (7) Hypokalemia Is this a current diagnosis for this admission?: Yes Plan: Resolved. - Time Time Spent with patient: Less than 15 minutes Medications reviewed and adjusted accordingly: Yes Anticipated discharge: Other - Inpatient psychiatric facility Within: when bed available
--- NOTE | 2019-05-01 17:02 | PSYCHOLOGICAL NOTE ---
Psych Note - Psych Note Date seen by psych provider: 05/01/19 Psych Note: Presenting Problem: Renewed IVC. OD which resulted in 10 intubation. Today patient stated he felt good and had been napping. He said he was remembering things "in batches." He stated "I don't think, in fact I know, the OD was not intentional, but just stupid, self medicating to deal with pain from 5 years worth of /illness/loss. He noted his family had not dealt with any of that and then all 4 grandparents got sick. He noted coming from a small [facility] family they don't discuss certain things, paint a smile on, it is how they are raised, you don't complain because it is seen as weak/ungrateful/boring. He sta anderson he has continued to have visitors and mentioned his 3 Aunts who all serve various purposes in his life and his father was "proud of me, said I had a different attitude, a quiet resignation, I have been gently looking in the mirror at the ugly and good and I realize what has to be done/what needs to be done." He commented "I need to be healthy for my boy (referencing his dog). he said "I really think there should be adulting classes, how to balance a check book, change a tire and even how to grieve." Diagnosis: Polysubstance abuse Probable Bipolar Disorder Due to long-term substance abuse Impression/Plan: Recommendation to maintain reinstated IVC and continuing seeking inpatient hospitalization. If not placement within another day will start plan of care for discharge. Consulted with Dr. Garcia regarding the management and care of patient. Attending Hospitalist aware of recommendations.
[2019-05-02] MEDS: AMOXICILLIN TR/POT CLAVULANATE 500-125 MG TAB PO SCH (05:22)
[2019-05-02] MEDS: HEPARIN SOD (PORCINE) 5,000 UNIT/ML 1 ML SYRINGE SUBCUT SCH ×3 (05:23→21:27)
[2019-05-02] MEDS: METOPROLOL TARTRATE 50 MG TABLET PO SCH ×2 (09:33→21:26)
[2019-05-02] MEDS: OLANZAPINE 2.5 MG TABLET PO SCH ×2 (09:33→21:26)
[2019-05-02] MEDS: BUSPIRONE HCL 10 MG TABLET PO SCH ×2 (09:33→21:26)
--- NOTE | 2019-05-02 15:32 | PDOC PROGRESS REPORT ---
Subjective Progress Note for:: 05/02/19 Subjective:: The patient is a 48-year-old male with past medical history of polysubstance abuse and depression who was admitted 04/11/2019 for acute respiratory failure with hypoxia requiring intubation after having been found unresponsive with drug paraphernalia nearby. UDS was positive for benzodiazepines and amphetamines. Per family members this was an intentional overdose/suicide attempt with previous history of the same. Extubated 10 days later on 04/21/2019. Patient is medically stable for discharge; he does not have any active medical concerns. His only prn medication administered in >5 days is oral tylenol. He does have a saline well in place; no running fluids. This is standard hospital protocol; all admitted patients retain IV access until discharge. The patient is independently ambulatory, self feeds, and provides for all of his own ADLs. He does not require PT/OT/ST services. He does not require any additional nursing care at this time. The sole reason for the patient remaining under admission status is to allow for mental health services to attempt to find inpatient psychiatric placement for his mental health needs. He is medically cleared for discharge without reservation. Patient was seen on morning rounds. No family at the bedside. He is A&Ox4, conversational and socially appropriate. Patient has no complaints or concerns. States he eels like he is "wasting our time" No concerns per nursing. Reason For Visit: ACUTE MULTIPLE DRUG OVERDOSE Physical Exam Vital Signs: Temp Pulse Resp BP Pulse Ox 98.3 F 77 18 118/69 99 05/01/19 19:31 05/01/19 19:31 05/01/19 19:31 05/01/19 19:31 05/01/19 19:31 Intake & Output 05/01/19 05/02/19 05/03/19 06:59 06:59 06:59 Intake Total 1920 1380 Balance 1920 1380 General appearance: PRESENT: no acute distress, well-developed, well-nourished Head exam: PRESENT: atraumatic, normocephalic Eye exam: PRESENT: conjunctiva pink, EOMI, PERRLA. ABSENT: scleral icterus Ear exam: PRESENT: normal external ear exam Mouth exam: PRESENT: moist, tongue midline Neck exam: ABSENT: carotid bruit, JVD, lymphadenopathy, thyromegaly Respiratory exam: PRESENT: clear to auscultation annie. ABSENT: rales, rhonchi, wheezes Cardiovascular exam: PRESENT: RRR. ABSENT: diastolic murmur, rubs, systolic murmur Pulses: PRESENT: normal dorsalis pedis pul Vascular exam: PRESENT: normal capillary refill GI/Abdominal exam: PRESENT: normal bowel sounds, soft. ABSENT: distended, guarding, mass, organolmegaly, rebound, tenderness Rectal exam: PRESENT: deferred Extremities exam: PRESENT: full ROM. ABSENT: calf tenderness, clubbing, pedal edema Neurological exam: PRESENT: alert, awake, oriented to person, oriented to place, oriented to time, oriented to situation Psychiatric exam: PRESENT: appropriate affect, normal mood. ABSENT: homicidal ideation, suicidal ideation Focused psych exam: ABSENT: flight of ideas, paranoid, pressured speech, restlessness Skin exam: PRESENT: dry, intact, warm. ABSENT: cyanosis, rash Results Laboratory Results: 04/24/19 05:50 04/24/19 05:50 04/11/19 04/11/19 04/11/19 06:33 06:33 11:56 Creatine Kinase 187 H 146 CK-MB (CK-2) 2.47 Troponin I < 0.012 04/11/19 04/11/19 04/11/19 11:56 17:43 17:43 Creatine Kinase 116 CK-MB (CK-2) 1.86 1.37 Troponin I < 0.012 < 0.012 Impressions: Chest CT 04/14/19 00:00 IMPRESSION: Pleural effusions. Airspace disease in each lower lobe, atelectasis versus pneumonia. Head CT 04/18/19 00:00 IMPRESSION: No acute intracranial findings. Increasing sphenoid and ethmoid sinus fluid. EVIDENCE OF ACUTE STROKE: NO. Chest X-Ray 04/21/19 06:00 IMPRESSION: STABLE APPEARANCE OF THE CHEST. SUPPORT DEVICES UNCHANGED. Status: Imported from PACS Assessment and Plan - Diagnosis (1) Acute respiratory failure with hypoxia Is this a current diagnosis for this admission?: Yes Plan: Resolved. Secondary to polysubstance drug overdose. He was intubated on 04/11/2019; successfully extubated 04/21/2019. Currently maintaining oxygen saturations on room air. Lung sounds clear, afebrile, normal WBCs. Incentive spirometer and flutter valve to bedside. (2) Polysubstance abuse Is this a current diagnosis for this admission?: Yes Plan: UDS at admission was positive for amphetamines and benzodiazepines; confirmation send out labs are also positive. Patient's family members indicate that he has a long-standing history of substance abuse. Mental health services and discharge planning are consulted. (3) Suicidal ideation Is this a current diagnosis for this admission?: Yes Plan: Currently denies SI or HI Family reports long-standing history of suicidal ideation and previous attempts at home. He reportedly indicated that he intended to overdose prior to being found down. Currently under IVC. Mental health services and discharge planning are consulted. He is medically cleared to discharge. Mental health services are currently seeking inpatient psychiatric placement. (4) Hypokalemia Is this a current diagnosis for this admission?: Yes Plan: Resolved. (5) Tachycardia Is this a current diagnosis for this admission?: Yes Plan: Resolved. (6) Toxic encephalopathy Is this a current diagnosis for this admission?: Yes Plan: Resolved; secondary to polysubstance abuse/overdose. (7) Pneumonia Is this a current diagnosis for this admission?: Yes Plan: Resolved. Sputum culture positive for MSSA and H influenza. Initially treated with IV Zosyn and Rocephin x 8 days then switch to Ancef. Culture results demonstrate sensitivity to Augmentin. Patient has completed full course of antibiotic therapy. - Time Time Spent with patient: 15-24 minutes Medications reviewed and adjusted accordingly: Yes Anticipated discharge: Other - Inpatient psych Within: when bed available - Inpatient Certification Based on my medical assessment, after consideration of the patient's comorbidities, presenting symptoms, or acuity I expect that the services needed warrant INPATIENT care.: Yes I certify that my determination is in accordance with my understanding of Medicare's requirements for reasonable and necessary INPATIENT services [42 CFR 412.3e].: Yes Medical Necessity: Risk of Complication if Not Cared For in Hospital
--- NOTE | 2019-05-02 16:31 | PSYCHOLOGICAL NOTE ---
Psych Note - Psych Note Date seen by psych provider: 05/02/19 Time seen by psych provider: 16:00 Psych Note: Presenting Problem: Renewed IVC. OD which resulted in 10 intubation. Checking conducted with patient Patient's mood is euthymic with congruent affect. Patient continues to denies thoughts of wanting to harm himself. He does engage with clinician and is honest with events leading up to overdose. Patient actively problem solves and engages in developing plan of care. Diagnosis: Polysubstance abuse Probable Bipolar Disorder Due to long-term substance abuse Impression/Plan: Recommendation for rescind of IVC and is cleared from acute psychiatric services. Patient has an appointment for [facility]/31/[facility] at 1 PM. This is an intake appointment where he can request intense outpatient substance use treatment. Patient can also research possible options for inpatient subsidies treatment that is voluntary if he so chooses. Patient engaged appropriately with clinician and discussed support systems and events leading up to his [facility] stay. At this time patient denies suicidal homicidal ideation. Patient does not demonstrate any behaviors of responding to internal stimuli i.e. organized linear thought processes maintains good eye contact normal conversational speech. Patient is highly encouraged to follow-up with outpatient resources that have been provided. Dr. Garcia was consulted to care management of this patient; attending physicians in agreement with recommendations and disposition.
[2019-05-03] MEDS: HEPARIN SOD (PORCINE) 5,000 UNIT/ML 1 ML SYRINGE SUBCUT SCH (05:25)
--- NOTE | 2019-05-03 10:16 | PSYCHOLOGICAL NOTE ---
Psych Note - Psych Note Date seen by psych provider: 05/03/19 - Review of Chart Time seen by psych provider: 10:00 - Chart Review Psych Note: Completed review of Patient's chart since admission. Following review of chart to include physician and nurses notes, labs, radiology and imaging reports, discharge planning and mental health reports and notes, Patient is determined to be psychiatrically at baseline and cleared from acute psychiatric services, and appropriate for discharge from acute behavioral health services to community based outpatient mental health / substance abuse services. During patient's admission, the behavioral health team provided psychiatric evaluation and multiple re-evaluations, ongoing placement efforts to inpatient psychiatric and dual diagnosis programs, and individual counseling sessions. The patient was denied for inpatient psychiatric and dual diagnoses services for multiple reasons at several hospitals and was adamant his overdose was not a suicide, rather an attempt to alleviate psychological pain of social and family he was dealing with over the course of the past of the 5 years, and the feeling of the lack of support from his family. Reports indicate the family is adamant the patients OD was a suicide attempt based on previous attempts but there is no hard evidence to support the claim. The patient is willing to engage in outpatient therapy and medication management to address his depression and need for support, and again denied suicidal ideation, intent or plan. He agreed to substance abuse treatment on an outpatient basis as well, and has a scheduled appointment with [facility] on May 31, 2019. Based on the circumstances of the patient's overdose and prolonged intubation, it is highly likely he will require ongoing occupational, physical and speech therapy as a result of anoxia and hypoxia. As a result of the reduced or lack of oxygen he experienced, he is likely to experienced slower processing, gaps in memory, uncoordinated motor movements, decreased attention and concentration, de creased problem solving and poorer behavioral control. He will likely require a more structured, predictable daily routine with a lower level of stimulation until he develops a level of tolerance and coping. His brain has experienced a trauma and will require 6-12 months of recovery time to heal. Thank you for the opportunity to participate in this patient's care.
[2019-05-03] MEDS: BUSPIRONE HCL 10 MG TABLET PO SCH (10:30)
[2019-05-03] MEDS: OLANZAPINE 2.5 MG TABLET PO SCH (10:30)
[2019-05-03] MEDS: METOPROLOL TARTRATE 50 MG TABLET PO SCH (10:31)
[2019-05-03 10:38] VITALS: BP 121/65
--- NOTE | 2019-05-03 15:45 | PSYCHOLOGICAL NOTE ---
Psych Note - Psych Note Date seen by psych provider: 05/03/19 Psych Note: Discussed with patient and father who was at bedside plan of care for discharge that had been coordinated last evening by fountain worker Francesco Villa. Patient had the outpatient MH resource sheet which had documented local [facility] appointment 05/31/19 at 1300. Provided the [facility] Sheet which highlighted [facility], [facility], [facility] and the local homeless detention. Father identified patient would be staying with his Aunt Taty for a couple days and then a female friend friend In [place]. Patient noted both are okay with his small dog (he has been focused on getting better so he can see and be there for his dog). Noted wherever patient decides to reside he needs to have outpatient MH follow up. He has the appointment at [facility] in [place]. He stated [place] has a Port he may be able to get an appointment at that location. Also informed him of [facility]. Explained both provide dual diagnosis MH and SA services which is what he needs. Included A mobile crisis number as that is the provider in [place] (documented as such) and also documented [facility] mobile crisis being the [place] mobile crisis service provider. Patient and father informed mobile crisis can assist with voluntary SA treatment options such as recovery homes, sober living homes and other linkage to services and supports. Encouraged patient to reach out for recovery program. Patient made aware the [facility] Sheet listed local homeless detention and soup kitchen. 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 Patient stated the other clinician spoke with patient about getting involved with AA/NA for another support. Also discussed with patient and father how patient's brain is still recovering from the OD (unknown how long unconscious or unresponsive) and then long intubation period. Explained it is a rebuilding/regaining process that takes time and may never get back to original cognitive abilities. Patient was alert and oriented though with linear and organized thinking. His cognitive processing had improved greatly from the first 2-3 days following extubation as evidenced by ability to have dialogue conversation and piece things together using other people's information. Impression/Plan: Spoke to attending Hospitalist regarding plan of care and Behavioral Health team continued recommendation for rescind of IVC and discharge. She was in agreement.
--- NOTE | 2019-05-14 20:55 | PDOC DISCHARGE SUMMARY ---
General - Admit/Disc Date/PCP Admission Date/Primary Care Provider: 04/11/19 02:07 BLAINE HOWARD MD Discharge Date: 05/03/19 - Discharge Diagnosis (1) Acute respiratory failure with hypoxia Is this a current diagnosis for this admission?: Yes Summary: Secondary to polysubstance drug overdose. He was intubated on 04/11/2019; successfully extubated 04/21/2019. Post-extubation was able to oxygen saturations on room air. (2) Polysubstance abuse Is this a current diagnosis for this admission?: Yes Summary: UDS at admission was positive for amphetamines and benzodiazepines; confirmation send out labs are also positive. Patient's family members indicate that he has a long-standing history of substance abuse. Mental health services and discharge planning are consulted. Attempted to get patient placed at inpatient PSYCH facility but due to lack of payment (patient was uninsured), [facility] was unable to find a facility that was willing to accept the patient. In the days leading up to his discharge, the patient denied SI, HI, hallucinations, or the urge to use drugs. [facility] was able to arrange for outpatient psychiatric services (see 05/03/2019 PSYCH note for further details). (3) Suicidal ideation Is this a current diagnosis for this admission?: Yes Summary: Family reports long-standing history of suicidal ideation and previous attempts at home. He reportedly indicated that he intended to overdose prior to being found down. Was initially placed under under IVC. Mental health services and discharge planning were consulted. After he was medically cleared to discharge, [facility] attempted to find an inpatient placement for him, but without insurance there was not a facility that would accept him. Towards the end of his hospital stay, the patient denied SI, HI, hallucinations or the urge to use drugs. The patient was sent home with outpatient mental health resources. (4) Hypokalemia Is this a current diagnosis for this admission?: Yes (5) Tachycardia Is this a current diagnosis for this admission?: Yes (6) Toxic encephalopathy Is this a current diagnosis for this admission?: Yes Summary: Secondary to polysubstance abuse/overdose. Resolved with supportive care - IVF and benzodiazepines for withdrawal (7) Pneumonia Is this a current diagnosis for this admission?: Yes Summary: Sputum culture positive for MSSA and H influenza. Initially treated with IV Zosyn and Rocephin x 8 days then switch to Ancef. Culture results demonstrate sensitivity to Augmentin, patient has completed full course of antibiotic therapy. - Additional Information Resuscitation Status: Full Code Discharge Diet: As Tolerated, Regular Discharge Activity: Activity As Tolerated Prescriptions: Buspirone HCl [Buspar 10 mg Tablet] 5 mg PO Q12 #30 tablet Metoprolol Tartrate [Lopressor 50 mg Tablet] 50 mg PO Q12 #60 tablet Olanzapine [Zyprexa 2.5 mg Tablet] 2.5 mg PO Q12 #60 tablet Home Medications: Acetaminophen [Tylenol 325 mg Tablet] 650 mg PO Q4HP PRN tablet 04/28/19 Buspirone HCl [Buspar 10 mg Tablet] 5 mg PO Q12 #30 tablet 04/28/19 Metoprolol Tartrate [Lopressor 50 mg Tablet] 50 mg PO Q12 #60 tablet 04/28/19 Olanzapine [Zyprexa 2.5 mg Tablet] 2.5 mg PO Q12 #60 tablet 04/28/19 History of Present Illness History of Present Illness: BRENDA GARCIA is a 48 year old male who presented to the emergency room via EMS having been found down at an unrelated bystanders home. At the time he was found by EMS he was unresponsive and there observation at the scene was that heroin and syringes were present. A family member told the emergency room physician that the patient had recently commented "that for $200 he could get all of the heroin he needed to kill himself". Patient was given intranasal and intravenous Narcan with some improvement of his respiratory status however his unresponsiveness persisted. Patient was transported to the emergency room where he was found to be unresponsive and required intubation and ventilation. He was noted to have a positive urine drug screen for benzodiazepines and amphetamines. Patient was subsequently admitted to the intensive care unit for further evaluation and treatment. Hospital Course Hospital Course: The patient is a 48-year-old male with past medical history of polysubstance abuse and depression who was admitted 04/11/2019 for acute respiratory failure with hypoxia requiring intubation after having been found unresponsive with drug paraphernalia nearby. UDS was positive for benzodiazepines and amphetamines. Per family members this was an intentional overdose/suicide attempt with previous history of the same. Extubated 10 days later on 04/21/2019. Physical Exam Vital Signs: Temp Pulse Resp BP Pulse Ox 98.2 F 75 16 121/65 99 06/26/19 10:35 05/03/19 10:35 05/03/19 10:35 05/03/19 10:35 05/03/19 10:35 General appearance: PRESENT: no acute distress, well-developed, well-nourished Head exam: PRESENT: atraumatic, normocephalic Eye exam: PRESENT: conjunctiva pink, EOMI, PERRLA. ABSENT: scleral icterus Ear exam: PRESENT: normal external ear exam Mouth exam: PRESENT: moist, tongue midline Neck exam: ABSENT: carotid bruit, JVD, lymphadenopathy, thyromegaly Respiratory exam: PRESENT: clear to auscultation annie. ABSENT: rales, rhonchi, wheezes Cardiovascular exam: PRESENT: RRR. ABSENT: diastolic murmur, rubs, systolic murmur Pulses: PRESENT: normal dorsalis pedis pul Vascular exam: PRESENT: normal capillary refill GI/Abdominal exam: PRESENT: normal bowel sounds, soft. ABSENT: distended, guarding, mass, organolmegaly, rebound, tenderness Rectal exam: PRESENT: deferred Extremities exam: PRESENT: full ROM. ABSENT: calf tenderness, clubbing, pedal edema Neurological exam: PRESENT: alert, awake, oriented to person, oriented to place, oriented to time, oriented to situation Psychiatric exam: PRESENT: appropriate affect, normal mood. ABSENT: anxious, depressed, homicidal ideation, suicidal ideation, unusual affect Focused psych exam: ABSENT: delusional, flight of ideas, pressured speech Skin exam: PRESENT: dry, intact, warm. ABSENT: cyanosis, rash Results Laboratory Results: 04/24/19 05:50 04/24/19 05:50 04/11/19 04/11/19 04/11/19 06:33 06:33 11:56 Creatine Kinase 187 H 146 CK-MB (CK-2) 2.47 Troponin I < 0.012 04/11/19 04/11/19 04/11/19 11:56 17:43 17:43 Creatine Kinase 116 CK-MB (CK-2) 1.86 1.37 Troponin I < 0.012 < 0.012 Impressions: Chest CT 04/14/19 00:00 IMPRESSION: Pleural effusions. Airspace disease in each lower lobe, atelectasis versus pneumonia. Head CT 04/18/19 00:00 IMPRESSION: No acute intracranial findings. Increasing sphenoid and ethmoid sinus fluid. EVIDENCE OF ACUTE STROKE: NO. Chest X-Ray 04/21/19 06:00 IMPRESSION: STABLE APPEARANCE OF THE CHEST. SUPPORT DEVICES UNCHANGED. Status: Imported from PACS Qualifiers - * PATIENT BEING DISCHARGED WITH ANY OF THE FOLLOWING DIAGNOSIS: No Acute Heart Failure - Is this a Heart Failure Patient?: No Plan Discharge Plan: DISCHARGED HOME TO LIVE WITH HIS AUNT. PARENTS DID NOT WANT HIM LIVING AT THEIR RESIDENCE. PROVIDED MULTIPLE OUTPATIENT MENTAL HEALTH RESOURCES. THE PATIENT WAS SENT HOME WITH PRESCRIPTIONS FOR ZYPREXA AND BUSPAR. SEE 05/03/2019 PSYCH NOTE FOR FURTHER DETAILS. Time Spent: Greater than 30 Minutes
== END 2019-05-03 11:30 | disposition home or self-care (01) | DRG 917 ==
LOC: ER 22:29 → EH 04-11 02:07 → ICU 04-11 12:38 → 3W 04-24 00:08 → 4S 04-28 10:43
PROVIDERS: ADMIT Emergency Medicine; ATTEND Emergency Medicine
PROC: 5A1955Z Respiratory Ventilation, Greater than 96 Consecutive Hours (ICD-10-PCS; principal; 2019-04-10)
PROC: 0BH17EZ Insertion of Endotracheal Airway into Trachea, Via Natural or Artificial Opening (ICD-10-PCS; 2019-04-10)
DX: T43.622A Poisoning by amphetamines, intentional self-harm, initial encounter (principal); J96.01 Acute respiratory failure with hypoxia; G92 Toxic encephalopathy; J15.211 Pneumonia due to Methicillin susceptible Staphylococcus aureus; J14 Pneumonia due to Hemophilus influenzae; I16.1 Hypertensive emergency; R45.851 Suicidal ideations; T42.4X2A Poisoning by benzodiazepines, intentional self-harm, initial encounter; Y92.009 Unspecified place in unspecified non-institutional (private) residence as the place of occurrence of the external cause; F32.9 Major depressive disorder, single episode, unspecified; B95.61 Methicillin susceptible Staphylococcus aureus infection as the cause of diseases classified elsewhere; E87.6 Hypokalemia; Z91.5 Personal history of self-harm; Z78.1 Physical restraint status
CPT/HCPCS: 36415; 36600; 51702; 70450; 71045; 71250; 80048; 80053; 80202; 80307; 81001; 82550; 82553; 82565; 82803; 82962; 83735; 84100; 84132; 84439; 84443; 84481; 84484; 85025; 86701; 87040; 87070; 87077; 87086; 87186; 87205; 93005; 93010; 94002; 94003; 94640; 94667; 94799; 96361; 96372; 96374; 96375; 99291; G0480; J0360; J0690; J0696; J1644; J1815; J1940; J2060; J2250; J2310; J2543; J2704; J3010; J3370; J3480; J3490; J7030; J7050; J7060; J7120; J7620; S0164